=== PATIENT | male | born 1960 | race African-American/Black ===

== ENCOUNTER 2017-12-19 04:36 | Emergency (ER) | payer OTHER ==
[2017-12-19 04:44] VITALS: BMI 28.1
--- NOTE | 2017-12-19 05:18 | PDOC ---
Attending Attestation - Resident Resident Name: Mitchel Lazaro - ED Attending Attestation I have performed the following: I have examined & evaluated the patient, The case was reviewed & discussed with the resident, I agree w/resident's findings & plan - HPI HPI: 12/19/17 05:21 PT HASN'T TAKEN HIS BP MEDS IN A WEEK AND HASN'T TAKE DIABETES MEDS IN A MONTH. HE WOKE UP WITH HIS HRAT RACING ( THOUGH HE WERE RUNNING) pT IS AFEBRILE, a+oX3. nO DISTRESS. HE APPEARS WELL. sYSTOLIC IS 220/133 HE WAS GIVEN 2 slntg 12/19/17 05:32 PRIOR TO ems ARRIVING, HE TOOK ONE OF EACH OF HIS MEDSl VALSARTAN, METOPROLOL, HCTZ, GLIPIZIDE, ETC. - Physicial Exam PE: 12/19/17 05:33 AGREE WITH RESIDENT EXAM - Medical Decision Making 12/19/17 05:33 ADMIT THE PATIENT FOR UNCONTROLLED DM AND HTN TO TELE OBSERVATION
[2017-12-19] MEDS ORDERED: NITROGLYCERIN SUBLINGUAL 1/150 0.4 MG TAB SL ONE ×2 (05:21→06:03)
[2017-12-19] MEDS ORDERED: NITROGLYCERIN SUBLINGUAL 1/150 0.4 MG TAB ONE (05:25)
[2017-12-19] MEDS ORDERED: SODIUM CHLORIDE 0.45% 1,000 ML IV SCH (05:30)
[2017-12-19 05:54] LABS: EOS % 6.9 % (0-4.5); HEMOGLOBIN 12.1 GM/dL (11.7-16.9); LYMPH % 30.2 % (8-40); MCH 26.9 pg (25.7-33.7); MCHC 32.7 g/dl (32.0-35.9); MEAN CELL VOLUME 82.1 fl (80-96); MEAN PLT VOLUME 9.1 fl (7.5-11.1); MONO % 5.6 % (3.8-10.2); NEUT % 56.3 % (42.8-82.8); PLATELET COUNT 218 K/MM3 (134-434); RDW 15.1 % (11.9-15.9); WHITE BLOOD COUNT 4.9 K/mm3 (4.0-10.0)
--- NOTE | 2017-12-19 06:02 | PDOC ---
History of Present Illness - General Chief Complaint: Blood Pressure Problem Stated Complaint: ELELAVATED BLOOD SUGAR & BLOOD PRESSURE Time Seen by Provider: 12/19/17 05:17 History Source: Patient Exam Limitations: No Limitations - History of Present Illness Initial Comments: 12/19/17 05:57 57m with pmh of htn and dm2 presents to the Ed wafter waking up with palpitations from a dream. He proceeded to check his BP with was in the 230's, usually in the 140;s last check a week ago. Last checked his blood sugar a week ago. Currently symptom-free. Past History - Past Medical History Allergies/Adverse Reactions: Allergies Allergy/AdvReac Type Severity Reaction Status Date / Time No Known Allergies Allergy Verified 12/19/17 05:34 Home Medications: Ambulatory Orders Valsartan [Diovan] 320 mg PO DAILY 08/19/12 Glipizide [Glipizide ER] 10 mg PO DAILY 12/11/15 Metoprolol Tartrate [Lopressor -] 200 mg PO BID 12/11/15 Ibuprofen [Motrin -] 600 mg PO TID PRN #21 tablet 10/09/17 Amlodipine Besylate [Norvasc -] 10 mg PO DAILY 12/19/17 Cyclobenzaprine HCl [Flexeril -] 5 mg PO BID 12/19/17 Hydrochlorothiazide [Hctz -] 25 mg PO DAILY 12/19/17 COPD: No Diabetes: Yes HTN: Yes - Suicide/Smoking/Psychosocial Hx Smoking Status: No Smoking History: Never smoked Have you smoked in the past 12 months: No Number of Cigarettes Smoked Daily: 0 Information on smoking cessation initiated: No Hx Alcohol Use: No Drug/Substance Use Hx: No Substance Use Type: None Hx Substance Use Treatment: No Review of Systems - Review of Systems Able to Perform ROS?: Yes Is the patient limited Cymraes proficient: No Constitutional: No: Symptoms Reported HEENTM: No: Symptoms Reported Respiratory: No: Symptoms reported Cardiac (ROS): No: Symptoms Reported ABD/GI: No: Symptoms Reported : No: Symptoms Reported Musculoskeletal: No: Symptoms Reported Integumentary: No: Symptoms Reported Neurological: No: Symptoms reported All Other Systems: Reviewed and Negative *Physical Exam - Vital Signs Last Vital Signs Temp Pulse Resp BP Pulse Ox 97.6 F 88 20 239/124 100 12/19/17 04:41 12/19/17 04:41 12/19/17 04:41 12/19/17 04:41 12/19/17 04:41 - Physical Exam General Appearance: Yes: Nourished, Appropriately Dressed. No: Apparent Distress HEENT: positive: EOMI, LENARD, Normal ENT Inspection Neck: negative: Tender Respiratory/Chest: positive: Lungs Clear, Normal Breath Sounds. negative: Chest Tender, Respiratory Distress Cardiovascular: positive: Regular Rhythm, Regular Rate, S1, S2 Gastrointestinal/Abdominal: positive: Normal Bowel Sounds, Flat, Soft. negative : Tender Musculoskeletal: positive: Normal Inspection Extremity: positive: Normal Capillary Refill, Normal Inspection ED Treatment Course - LABORATORY CBC & Chemistry Diagram: 12/19/17 05:40 12/19/17 05:40 - ADDITIONAL ORDERS Additional order review: 12/19/17 05:40 RBC 4.50 MCV 82.1 MCHC 32.7 RDW 15.1 MPV 9.1 Neutrophils % 56.3 Lymphocytes % 30.2 Monocytes % 5.6 Eosinophils % 6.9 H Basophils % 1.0 - RADIOLOGY Radiology Studies Ordered: Category Date Time Status CHEST PA & LAT [RAD] Stat Radiology 12/19/17 05:18 Ordered - Medications Given in the ED: ED Medications Discontinued Medications Generic Name Dose Route Start Last Admin Trade Name Freq PRN Reason Stop Dose Admin Nitroglycerin 0.8 mg 12/19/17 05:21 12/19/17 05:35 Nitrostat - SL 12/19/17 05:22 0.8 mg ONCE ONE Administration Oxycodone/Acetaminophen 2 combo 12/19/17 05:26 12/19/17 05:39 Percocet 5/325 - PO 12/19/17 05:27 2 combo ONCE ONE Administration Medical Decision Making - Medical Decision Making 12/19/17 06:03 Nitroglycerin 0.8mg x 2 oxycodone, 1/2 ns due to right heart strain on ekg. 12/19/17 06:04 12/19/17 06:40 BP down to 199 now up to 212. Nitroglycerine drip started 12/19/17 07:05 Patient signed out to Dr. Edmondson *DC/Admit/Observation/Transfer Diagnosis at time of Disposition: Hypertension, Hypertensive emergency - Referrals Referrals: Ugo Kingston MD [Primary Care Provider] - - Patient Instructions - Post Discharge Activity
[2017-12-19 06:19] LABS: ALBUMIN 3.2 g/dl (3.4-5.0); ALK PHOS 68 U/L (45-117); ANION GAP 7 (8-16); BILIRUBIN,TOTAL 0.8 mg/dL (0.2-1.0); BLOOD UREA NITROGEN 23 mg/dL (7-18); CALCIUM 8.6 mg/dL (8.5-10.1); CHLORIDE 99 mmol/L (98-107); CO2 31 mmol/L (21-32); CREATININE 1.9 mg/dL (0.7-1.3); SGPT/ALT 26 U/L (12-78); SODIUM 137 mmol/L (136-145); TOT PROT 7.4 g/dl (6.4-8.2)
[2017-12-19 06:37] LABS: GLUCOSE,RANDOM 344 mg/dL (74-106); POTASSIUM 3.6 mmol/L (3.5-5.1); SGOT/AST 20 U/L (15-37)
[2017-12-19] MEDS ORDERED: NITROGLYCERIN 25MG/D5W 250ML 25 MG/250 ML ML IVPB SCH (06:45)
[2017-12-19] MEDS ORDERED: NITROGLYCERIN 25MG/D5W 250ML 25 MG/250 ML ML IVPB ONE (06:51)
--- NOTE | 2017-12-19 07:16 | PDOC ---
*Physical Exam - Vital Signs Last Vital Signs Temp Pulse Resp BP Pulse Ox 97.6 F 88 20 239/124 100 12/19/17 04:41 12/19/17 04:41 12/19/17 04:41 12/19/17 04:41 12/19/17 04:41 ED Treatment Course - LABORATORY CBC & Chemistry Diagram: 12/19/17 05:40 12/19/17 05:40 - ADDITIONAL ORDERS Additional order review: Laboratory Results 12/19/17 05:40 Sodium 137 Potassium 3.6 Chloride 99 Carbon Dioxide 31 Anion Gap 7 L BUN 23 H Creatinine 1.9 H D Creat Clearance w eGFR 36.59 Random Glucose 344 H* D Calcium 8.6 Total Bilirubin 0.8 AST 20 D ALT 26 D Alkaline Phosphatase 68 Total Protein 7.4 Albumin 3.2 L 12/19/17 05:40 RBC 4.50 MCV 82.1 MCHC 32.7 RDW 15.1 MPV 9.1 Neutrophils % 56.3 Lymphocytes % 30.2 Monocytes % 5.6 Eosinophils % 6.9 H Basophils % 1.0 - Medications Given in the ED: ED Medications Discontinued Medications Generic Name Dose Route Start Last Admin Trade Name Freq PRN Reason Stop Dose Admin Nitroglycerin 0.8 mg 12/19/17 05:21 12/19/17 05:35 Nitrostat - SL 12/19/17 05:22 0.8 mg ONCE ONE Administration Nitroglycerin 0.8 mg 12/19/17 06:03 12/19/17 06:05 Nitrostat - SL 12/19/17 06:04 0.8 mg ONCE ONE Administration Oxycodone/Acetaminophen 2 combo 12/19/17 05:26 12/19/17 05:39 Percocet 5/325 - PO 12/19/17 05:27 2 combo ONCE ONE Administration Medical Decision Making - Medical Decision Making 12/19/17 07:14 Pt was signed out to me by Dr. Lazaro, night team. The patient is a 57M with a PMH of HTN and DM who presented with increased BP. Pt is currently on a nitro drip pending labs. Will monitor to see if nitro drip controls BP. Dispo: likely tele admission for BP control. 12/19/17 09:46 CXR negative for acute pathology. Given 20 of labetalol to control BP. 12/19/17 11:16 Labs indicative of LAKSHMI w/ Cr at 1.9. Called Dr. Carmona (pt's PCP) with no answer. PCP has no service call. 12/19/17 11:26 Will d/c patient with strict instructions to follow up with PCP regarding Cr of 1.9. *DC/Admit/Observation/Transfer Diagnosis at time of Disposition: Hypertensive emergency Hypertension Qualifiers: Hypertension type: unspecified Qualified Code(s): I10 - Essential (primary) hypertension - Discharge Dispostion Disposition: HOME Condition at time of disposition: Stable Admit: No - Referrals Referrals: Ugo Kingston MD [Primary Care Provider] - - Patient Instructions Printed Discharge Instructions: DI for High Blood Pressure, How to Monitor Your Blood Pressure at Home Additional Instructions: Please follow up with Dr. Carmona for your elevated creatinine of 1.9 tomorrow, 12/20. Please return to the ER if symptoms persist, worsen, or new symptoms arise. Please follow up with your primary care physician in 2-3 days. Please return to the ER if you have any signs or symptoms of chest pain, shortness of breath, uncontrollable fever, chills, nausea, vomiting, numbness, tingling, or weakness in any part of your body, changes in vision, or slurred speech. Please take your blood pressure and diabetes medications as prescribed. - Post Discharge Activity
[2017-12-19 07:34] LABS: URINE APPEARANCE CLEAR; URINE BILIRUBIN NEGATIVE (NEGATIVE); URINE BLOOD NEGATIVE (NEGATIVE); URINE COLOR COLORLESS; URINE GLUCOSE (UA) 3+ (NEGATIVE); URINE KETONE NEGATIVE (NEGATIVE); URINE LEUK ESTERASE NEGATIVE (NEGATIVE); URINE NITRITE NEGATIVE (NEGATIVE); URINE UROBILINOGEN NEGATIVE mg/dL (0.2-1.0)
[2017-12-19] MEDS ORDERED: LABETALOL HCL 5 MG/1 ML (100MG/20 ML VIAL) IVPUSH ONE (08:03)
[2017-12-19] MEDS ORDERED: LABETALOL HCL 5 MG/1 ML (200MG/40ML VIAL) IVPB ONE (08:23)
[2017-12-19 08:29] LABS: URINE PROTEIN 2+ (NEGATIVE)
[2017-12-19 08:30] LABS: URINE BACTERIA RARE /hpf (NONE SEEN)
[2017-12-19 13:11] VITALS: BP 195/122; PULSE 65; TEMP 97.9
--- NOTE | 2017-12-19 16:05 | EKG ---
Test Reason : Blood Pressure : / mmHG Vent. Rate : 077 BPM Atrial Rate : 077 BPM P-R Int : 204 ms QRS Dur : 102 ms QT Int : 398 ms P-R-T Axes : 068 008 168 degrees QTc Int : 450 ms NORMAL SINUS RHYTHM POSSIBLE LEFT ATRIAL ENLARGEMENT SEPTAL INFARCT , AGE UNDETERMINED ABNORMAL ECG WHEN COMPARED WITH ECG OF 11-DEC-2015 11:56, NO SIGNIFICANT CHANGE WAS FOUND Confirmed by Allan Cisneros ([id number]) on 12/19/2017 4:05:14 PM Referred By: Confirmed By:Allan Cisneros
== END 2017-12-19 12:24 | disposition home or self-care (01) ==
LOC: JER 04:36
PROC: 3E0337Z Introduction of Electrolytic and Water Balance Substance into Peripheral Vein, Percutaneous Approach (ICD-10-PCS; principal; 2017-12-19)
PROC: 3E033GC Introduction of Other Therapeutic Substance into Peripheral Vein, Percutaneous Approach (ICD-10-PCS; 2017-12-19)
DX: I16.0 Hypertensive urgency (principal); E11.9 Type 2 diabetes mellitus without complications; Z79.84 Long term (current) use of oral hypoglycemic drugs; Z91.14 Patient's other noncompliance with medication regimen
CPT/HCPCS: 36415; 71046-TC; 80053; 81003; 81015; 82550; 82553; 84484; 85025; 93005; 93010; 96361; 96374; 99284-25

== ENCOUNTER 2018-05-08 05:08 | Inpatient (IN) | payer OTHER ==
--- NOTE | 2018-05-08 05:21 | PDOC ---
History of Present Illness - General History Source: Patient, Significant Other Exam Limitations: No Limitations - History of Present Illness Initial Comments: 05/08/18 06:24 Patient is a 57 year old male with a significant past medical history of HTN, Diabetes, who presents to the ED with complaints of altered mental status that began this morning while at home. As per patient's , she was awoken this morning at this am to the patient naked and wet while attempting to dial a phone onto his hand in an attempt to contact her while mumbling. She reports immediately calling EMS in order for the patient to be brought into the ED for further evaluation. Patient's reports patient has been chronically non compliant with medication. As per EMS patient's BGL was found to be 530 en route to the ED with a BP of 192/104 on scene. Denies chest pain, Sob. Denies nausea, vomiting. Denies head trauma, loss of consciousness. Denies fevers, chills. Denies contact with sick individuals, out of state travelling. Denies any other symptbh. Allergies: None Social history: Lives with . No smoking. No alcohol. No illicit drugs. Surgical history: None PMD: Dr. Kingston <Khang Thorpe - Last Filed: 05/08/18 06:23> <Valery Martínez - Last Filed: 05/08/18 06:58> - General Stated Complaint: AMS Time Seen by Provider: 05/08/18 05:13 Past History <Khang Thorpe - Last Filed: 05/08/18 06:23> - Past Medical History COPD: No Diabetes: Yes HTN: Yes - Suicide/Smoking/Psychosocial Hx Smoking Status: No Smoking History: Never smoked Have you smoked in the past 12 months: No Number of Cigarettes Smoked Daily: 0 Hx Alcohol Use: No Drug/Substance Use Hx: No Substance Use Type: None Hx Substance Use Treatment: No <Valery Martínez - Last Filed: 05/08/18 06:58> - Past Medical History Allergies/Adverse Reactions: Allergies Allergy/AdvReac Type Severity Reaction Status Date / Time No Known Allergies Allergy Verified 05/08/18 05:30 Home Medications: Ambulatory Orders Valsartan [Diovan] 320 mg PO DAILY 08/19/12 Glipizide [Glipizide ER] 10 mg PO DAILY 12/11/15 Metoprolol Tartrate [Lopressor -] 200 mg PO BID 12/11/15 Ibuprofen [Motrin -] 600 mg PO TID PRN #21 tablet 10/09/17 Amlodipine Besylate [Norvasc -] 10 mg PO DAILY 12/19/17 Cyclobenzaprine HCl [Flexeril -] 5 mg PO BID 12/19/17 Hydrochlorothiazide [Hctz -] 25 mg PO DAILY 12/19/17 Review of Systems - Review of Systems Able to Perform ROS?: Yes Comments:: 05/08/18 06:24 GENERAL/CONSTITUTIONAL: No fever or chills. No weakness. HEAD, EYES, EARS, NOSE AND THROAT: No change in vision. No ear pain or discharge. No sore throat. CARDIOVASCULAR: No chest pain or shortness of breath. RESPIRATORY: No cough, wheezing, or hemoptysis. GASTROINTESTINAL: No nausea, vomiting, diarrhea or constipation. GENITOURINARY: No dysuria, frequency, or change in urination. MUSCULOSKELETAL: No joint or muscle swelling or pain. No neck or back pain. SKIN: No rash NEUROLOGIC: No headache, vertigo, loss of consciousness, or change in strength/ sensation. ENDOCRINE: No increased thirst. No abnormal weight change. HEMATOLOGIC/LYMPHATIC: No anemia, easy bleeding, or history of blood clots. ALLERGIC/IMMUNOLOGIC: No hives or skin allergy. <Khang Thorpe - Last Filed: 05/08/18 06:23> *Physical Exam - Vital Signs Last Vital Signs Temp Pulse Resp BP Pulse Ox 98.9 F 103 H 16 223/114 96 05/08/18 05:10 05/08/18 05:10 05/08/18 05:10 05/08/18 05:10 05/08/18 05:10 - Physical Exam Comments: 05/08/18 06:24 GENERAL: Awake, alert, and fully oriented, in no acute distress HEAD: No signs of trauma EYES: PERRLA, EOMI, sclera anicteric, conjunctiva clear ENT: Auricles normal inspection, hearing grossly normal, nares patent, oropharynx clear without exudates. Moist mucosa NECK: Normal ROM, supple, no lymphadenopathy, JVD, or masses LUNGS: Breath sounds equal, clear to auscultation bilaterally. No wheezes, and no crackles HEART: +Tachycardic. Regular rhythm, normal S1 and S2, no murmurs, rubs or gallops ABDOMEN: Soft, nontender, normoactive bowel sounds. No guarding, no rebound. No masses EXTREMITIES: Normal range of motion, no edema. No clubbing or cyanosis. No cords, erythema, or tenderness NEUROLOGICAL: +Following commands. +AAOx1. Cranial nerves II through XII grossly intact. Normal speech, normal gait SKIN: Warm, Dry, normal turgor, no rashes or lesions noted. <Khang Thorpe - Last Filed: 05/08/18 06:23> Heart Score/ECG Review - ECG Intrepretation Comment:: 05/08/18 05:43 Completed @5:18:31 Sinus tachycardia with frequent premature ventricular complexes Septal infarct, age undetermined T wave abnormality, consider lateral ischemia Abnormal ECG Vent. rate 115 bpm [place] interval 170 ms QRS duration 86 ms <Khang Thorpe - Last Filed: 05/08/18 06:23> ED Treatment Course - LABORATORY CBC & Chemistry Diagram: 05/08/18 05:30 05/08/18 05:30 <Khang Thorpe - Last Filed: 05/08/18 06:23> - LABORATORY CBC & Chemistry Diagram: 05/08/18 05:30 05/08/18 05:30 <Valery Martínez - Last Filed: 05/08/18 06:58> Medical Decision Making - Medical Decision Making 05/08/18 05:55 Patient Name: DAVID RUIZ THIS IS A PRELIMINARY REPORT FROM [facility]AGING EVALUATOR [employer]SF[employer]UD[employer] DATE OF SERVICE: 2018-05-08 05:33:39 IMAGES: 142 EXAM: CT brain without contrast HISTORY: Rule out bleed COMPARISON: None. FINDINGS: Involutional changes somewhat out of proportion to young age. No hemorrhage. No mass. No visible infarct. Osseous structures are intact. Individualized dose optimization techniques were used for this CT. THIS DOCUMENT HAS BEEN ELECTRONICALLY SIGNED Radiologist sees atrophy disproportionate to his age. 05/08/18 06:13 Pt cannot contribute to his history; he doesn't know where we are, what city we are in, who the president is, what year this is, he only knows his name and he doesn't know his . called EMS, when he was mumbling at 3:30-4AM, pt had showered and he was undressed and wet and trying to call his on his hand, dialing an imaginary phone. was traveling just got home 5 days ago, she found wine at the home, states that he normally doesn't drink. Pt denied drinking however. 05/08/18 06:[address] Lyon is aware of the patient. Pt has elevated blood sugar, low K+ and acetone positive. He was given 10 U reg insulin, Kdur as well as K IV runs, and mag sulfate. Pt will requare admission. Hospitalist was called and they are asking to sign out to the day hospitalist team. CXR normal. EKG tachycardia and frequent PVCs. <Valery Martínez - Last Filed: 05/08/18 06:58> *DC/Admit/Observation/Transfer - Attestations Scribe Attestion: 05/08/18 06:24 Documentation prepared by Khang Thorpe, acting as certified medical technician assistant for Valery Martínez MD. <Khang Thorpe - Last Filed: 05/08/18 06:23> <Valery Martínez - Last Filed: 05/08/18 06:58> Diagnosis at time of Disposition: Altered mental status
[2018-05-08] MEDS ORDERED: NITROGLYCERIN 2% OINTMENT - 1GM PACKET TD ONE ×3 (05:27)
[2018-05-08] MEDS ORDERED: NITROGLYCERIN SUBLINGUAL 1/150 0.4 MG TAB SL ONE ×2 (05:27→06:01)
[2018-05-08 05:47] LABS: BASO % 0.6 % (0-2.0); EOS % 0.1 % (0-4.5); HEMOGLOBIN 13.3 GM/dL (11.7-16.9); LYMPH % 16.7 % (8-40); MCH 27.7 pg (25.7-33.7); MCHC 32.5 g/dl (32.0-35.9); MEAN CELL VOLUME 85.1 fl (80-96); NEUT % 81.6 % (42.8-82.8); PLATELET COUNT 259 K/MM3 (134-434); RBC 4.82 M/mm3 (4.00-5.60); RDW 14.2 % (11.9-15.9); WHITE BLOOD COUNT 9.3 K/mm3 (4.0-10.0)
[2018-05-08 06:08] LABS: INR 0.97 (0.82-1.09)
[2018-05-08 06:12] LABS: ALBUMIN 3.7 g/dl (3.4-5.0); ANION GAP 11 (8-16); BLOOD UREA NITROGEN 28 mg/dL (7-18); CALCIUM 9.7 mg/dL (8.5-10.1); CHLORIDE 95 mmol/L (98-107); CO2 29 mmol/L (21-32); POTASSIUM 3.1 mmol/L (3.5-5.1); SGOT/AST 22 U/L (15-37); SGPT/ALT 36 U/L (12-78); SODIUM 135 mmol/L (136-145)
[2018-05-08 06:14] LABS: ALK PHOS 68 U/L (45-117); BILIRUBIN,TOTAL 0.5 mg/dL (0.2-1.0); TOT PROT 8.6 g/dl (6.4-8.2)
[2018-05-08 06:21] LABS: GLUCOSE,RANDOM 543 mg/dL (74-106)
[2018-05-08] MEDS ORDERED: INSULIN REGULAR HUMAN 100 UNITS/ML *VIAL IVPUSH ONE ×2 (06:21→11:06)
[2018-05-08] MEDS ORDERED: VALSARTAN 160 MG TABLET (UD) PO ONE (06:22)
[2018-05-08] MEDS ORDERED: VALSARTAN 80 MG TABLET (UD) ONE (06:26)
[2018-05-08] MEDS ORDERED: INSULIN REGULAR HUMAN 100 UNITS/ML *VIAL ONE ×4 (06:27→14:24)
[2018-05-08] MEDS ORDERED: POTASSIUM CHLORIDE TABS 20 MEQ TABLET.ER (FP) PO ONE ×2 (06:46→06:52)
[2018-05-08] MEDS ORDERED: MAGNESIUM SULF 50% (8.12 MEQ/2 ML-1 GM VIAL) IVPB ONE (06:46)
[2018-05-08] MEDS ORDERED: KCL 10 MEQ IVPB 10 MEQ/100 ML INFUS.BAG IVPB ONE (07:00)
[2018-05-08] MEDS: KCL 10 MEQ IVPB 10 MEQ/100 ML INFUS.BAG IVPB SCH ×3 (07:05→09:35)
[2018-05-08] MEDS ORDERED: NICARDIPINE 25 MG in DEXTROSE 5%-WATER - 240 ML IVPB SCH (07:30)
[2018-05-08] MEDS ORDERED: KCL 10 MEQ IVPB 20 MEQ/200 ML INFUS.BAG IVPB ONE (07:31)
--- NOTE | 2018-05-08 07:37 | PDOC ---
*Physical Exam - Vital Signs Last Vital Signs Temp Pulse Resp BP Pulse Ox 98.9 F 108 H 16 180/110 96 05/08/18 05:10 05/08/18 07:18 05/08/18 07:18 05/08/18 07:18 05/08/18 07:18 05/08/18 07:39 Care endorsed to me and Dr. Loaiza by Dr. Martínez at the beginning of our shift. Pt is 57 YOM with h/o HTN and DM who is non-adherent to medications who p/w acute worsening of mental status. Found to be hypertensive, hyperglycemic, hypokalemic, with lactate 2.5 and LAKSHMI on labs. Head CT shows dilated ventricles but this was present on HCT from 2016. Patient continues to have AMS and plan is for admission to ICU. left before change of shift. ED Treatment Course - LABORATORY CBC & Chemistry Diagram: 05/08/18 05:30 05/08/18 08:00 - ADDITIONAL ORDERS Additional order review: Laboratory Results 05/08/18 05/08/18 05/08/18 06:16 05:53 05:30 PT with INR INR PTT (Actin FS) Sodium Potassium Chloride Carbon Dioxide Anion Gap BUN Creatinine Creat Clearance w eGFR Random Glucose Lactic Acid 2.5 H* Calcium Total Bilirubin AST ALT Alkaline Phosphatase Total Protein Albumin Alcohol, Quantitative < 5.0 Acetone, Qual Positive small 1+ 05/08/18 05/08/18 05/08/18 05:30 05:30 05:30 PT with INR 11.00 INR 0.97 PTT (Actin FS) 23.3 L Sodium 135 L Potassium 3.1 L Chloride 95 L Carbon Dioxide 29 Anion Gap 11 BUN 28 H D Creatinine 2.0 H Creat Clearance w eGFR 34.49 Random Glucose 543 H* D Lactic Acid Calcium 9.7 Total Bilirubin 0.5 D AST 22 ALT 36 D Alkaline Phosphatase 68 Total Protein 8.6 H Albumin 3.7 Alcohol, Quantitative Acetone, Qual 05/08/18 05:30 RBC 4.82 MCV 85.1 MCHC 32.5 RDW 14.2 MPV 10.0 Neutrophils % 81.6 D Lymphocytes % 16.7 D Monocytes % 1.0 L D Eosinophils % 0.1 D Basophils % 0.6 - Medications Given in the ED: ED Medications Discontinued Medications Generic Name Dose Route Start Last Admin Trade Name Freq PRN Reason Stop Dose Admin Insulin Human Regular 10 units 05/08/18 06:21 05/08/18 06:33 Novolin R Vial *For Ivpush Or Iv Drip Only* IVPUSH 05/08/18 06:22 10 unit ONCE ONE Administration Nitroglycerin 1 inch 05/08/18 05:27 05/08/18 05:45 Nitro-Bid 2% Paste - TD 05/08/18 05:28 1 inch ONCE ONE Administration Nitroglycerin 0.8 mg 05/08/18 05:27 05/08/18 05:45 Nitrostat - SL 05/08/18 05:28 0.8 mg ONCE ONE Administration Nitroglycerin 1 inch 05/08/18 05:27 05/08/18 06:04 Nitro-Bid 2% Paste - TD 05/08/18 05:28 Not Given ONCE ONE Nitroglycerin 0.8 mg 05/08/18 06:01 05/08/18 06:03 Nitrostat - SL 05/08/18 06:02 0.8 mg ONCE ONE Administration Potassium Chloride 40 meq 05/08/18 06:46 05/08/18 06:58 K-Dur - PO 05/08/18 06:47 40 meq ONCE ONE Administration Valsartan 160 mg 05/08/18 06:22 05/08/18 06:33 Diovan - PO 05/08/18 06:23 160 mg ONCE ONE Administration Medical Decision Making - Medical Decision Making Adult male Pt p/w acute worsening of mental status. Initial Vital Signs Temp Pulse Resp BP Pulse Ox 98.9 F 103 H 16 223/114 96 05/08/18 05:10 05/08/18 05:10 05/08/18 05:10 05/08/18 05:10 05/08/18 05:10 DDX IBNLT: VS abnormalities (e.g. fever, hypertensive emergency e.g. PRES), toxic-metabolic (e.g. medications, drugs e.g. serotonin syndrome/neuroleptic malignant syndrome or street drugs, electrolytes, hypothyroid, B12 deficiency), structural (e.g. epilepsy, brain tumor, CVA/TIA, NPH, CJD, ACS, PE, Simone disease), infectious (e.g. UTI, PNA, bronchitis, cellulitis, meningitis, neurosyphilis, HIV-associated dementia), psychiatric (e.g. delirium, dementia, psychosis), TTP (HUS with AMS, fever, poss seizure), etc. Additional W/U ordered: Mg, Salicylate level, Acetaminophen level, CSF studies, decadron, ceftriaxone, vancomycin, ampicillin, acyclovir, IVF Laboratory Tests 05/08/18 05/08/18 05/08/18 05:30 05:30 05:30 WBC 9.3 D RBC 4.82 Hgb 13.3 Hct 41.0 MCV 85.1 MCH 27.7 MCHC 32.5 RDW 14.2 Plt Count 259 MPV 10.0 Absolute Neuts (auto) 7.6 Neutrophils % 81.6 D Lymphocytes % 16.7 D Monocytes % 1.0 L D Eosinophils % 0.1 D Basophils % 0.6 Nucleated RBC % 0 PT with INR 11.00 INR 0.97 PTT (Actin FS) 23.3 L Anticoagulation Therapy ABG pH ABG pCO2 at Pt Temp ABG pO2 at Pt Temp ABG HCO3 ABG O2 Sat (Measured) ABG O2 Content ABG Base Excess Toni Test Carboxyhemoglobin Methemoglobin O2 Delivery Device Oxygen Flow Rate Vent Mode Vent Rate Mechanical Rate Pressure Support Vent Sodium Potassium Chloride Carbon Dioxide Anion Gap BUN Creatinine Creat Clearance w eGFR Random Glucose Lactic Acid Calcium Phosphorus Magnesium Total Bilirubin AST ALT Alkaline Phosphatase Ammonia Creatine Kinase Creatine Kinase Index CK-MB (CK-2) Troponin I B-Natriuretic Peptide Total Protein Albumin Urine Color Urine Appearance Urine pH Ur Specific [place] Urine Protein Urine Glucose (UA) Urine Ketones Urine Blood Urine Nitrite Urine Bilirubin Urine Urobilinogen Ur Leukocyte Esterase Urine WBC (Auto) Urine RBC (Auto) Ur Random Sodium Ur Random Potassium Ur Random Chloride Urine Creatinine CSF Glucose CSF Total Protein Salicylates Opiates Screen Methadone Screen Acetaminophen Barbiturate Screen Phencyclidine Screen Ur Amphetamines Screen MDMA (Ecstasy) Screen Benzodiazepines Screen Cocaine Screen U Marijuana (THC) Screen Alcohol, Quantitative Acetone, Qual 05/08/18 05/08/18 05/08/18 05:30 05:30 05:30 WBC RBC Hgb Hct MCV MCH MCHC RDW Plt Count MPV Absolute Neuts (auto) Neutrophils % Lymphocytes % Monocytes % Eosinophils % Basophils % Nucleated RBC % PT with INR INR PTT (Actin FS) Anticoagulation Therapy ABG pH ABG pCO2 at Pt Temp ABG pO2 at Pt Temp ABG HCO3 ABG O2 Sat (Measured) ABG O2 Content ABG Base Excess Toni Test Carboxyhemoglobin Methemoglobin O2 Delivery Device Oxygen Flow Rate Vent Mode Vent Rate Mechanical Rate Pressure Support Vent Sodium 135 L Potassium 3.1 L Chloride 95 L Carbon Dioxide 29 Anion Gap 11 BUN 28 H D Creatinine 2.0 H Creat Clearance w eGFR 34.49 Random Glucose 543 H* D Lactic Acid Calcium 9.7 Phosphorus Magnesium 2.1 Total Bilirubin 0.5 D AST 22 ALT 36 D Alkaline Phosphatase 68 Ammonia Creatine Kinase 501 H Creatine Kinase Index 1.1 CK-MB (CK-2) 5.537 H Troponin I < 0.02 D B-Natriuretic Peptide 860.81 H Total Protein 8.6 H Albumin 3.7 Urine Color Urine Appearance Urine pH Ur Specific [place] Urine Protein Urine Glucose (UA) Urine Ketones Urine Blood Urine Nitrite Urine Bilirubin Urine Urobilinogen Ur Leukocyte Esterase Urine WBC (Auto) Urine RBC (Auto) Ur Random Sodium Ur Random Potassium Ur Random Chloride Urine Creatinine CSF Glucose CSF Total Protein Salicylates < 1.700 Opiates Screen Methadone Screen Acetaminophen < amr Barbiturate Screen Phencyclidine Screen Ur Amphetamines Screen MDMA (Ecstasy) Screen Benzodiazepines Screen Cocaine Screen U Marijuana (THC) Screen Alcohol, Quantitative Acetone, Qual Positive small 1+ 05/08/18 05/08/18 05/08/18 05:53 06:16 08:00 WBC RBC Hgb Hct MCV MCH MCHC RDW Plt Count MPV Absolute Neuts (auto) Neutrophils % Lymphocytes % Monocytes % Eosinophils % Basophils % Nucleated RBC % PT with INR INR PTT (Actin FS) Anticoagulation Therapy ABG pH ABG pCO2 at Pt Temp ABG pO2 at Pt Temp ABG HCO3 ABG O2 Sat (Measured) ABG O2 Content ABG Base Excess Toni Test Carboxyhemoglobin Methemoglobin O2 Delivery Device Oxygen Flow Rate Vent Mode Vent Rate Mechanical Rate Pressure Support Vent Sodium 139 Potassium 3.4 L Chloride 98 Carbon Dioxide 29 Anion Gap 12 BUN 27 H Creatinine 2.0 H Creat Clearance w eGFR 34.49 Random Glucose 468 H* Lactic Acid 2.5 H* Calcium 9.8 Phosphorus 3.6 Magnesium 2.1 Total Bilirubin 0.6 AST 23 ALT 32 Alkaline Phosphatase 68 Ammonia Creatine Kinase Creatine Kinase Index CK-MB (CK-2) Troponin I 0.02 B-Natriuretic Peptide 1318.92 H Total Protein 8.5 H Albumin 3.7 Urine Color Urine Appearance Urine pH Ur Specific [place] Urine Protein Urine Glucose (UA) Urine Ketones Urine Blood Urine Nitrite Urine Bilirubin Urine Urobilinogen Ur Leukocyte Esterase Urine WBC (Auto) Urine RBC (Auto) Ur Random Sodium Ur Random Potassium Ur Random Chloride Urine Creatinine CSF Glucose CSF Total Protein Salicylates Opiates Screen Methadone Screen Acetaminophen Barbiturate Screen Phencyclidine Screen Ur Amphetamines Screen MDMA (Ecstasy) Screen Benzodiazepines Screen Cocaine Screen U Marijuana (THC) Screen Alcohol, Quantitative < 5.0 Acetone, Qual 05/08/18 05/08/18 05/08/18 08:00 08:00 08:20 WBC RBC Hgb Hct MCV MCH MCHC RDW Plt Count MPV Absolute Neuts (auto) Neutrophils % Lymphocytes % Monocytes % Eosinophils % Basophils % Nucleated RBC % PT with INR INR PTT (Actin FS) Anticoagulation Therapy ABG pH ABG pCO2 at Pt Temp ABG pO2 at Pt Temp ABG HCO3 ABG O2 Sat (Measured) ABG O2 Content ABG Base Excess Toni Test Carboxyhemoglobin Methemoglobin O2 Delivery Device Oxygen Flow Rate Vent Mode Vent Rate Mechanical Rate Pressure Support Vent Sodium Potassium Chloride Carbon Dioxide Anion Gap BUN Creatinine Creat Clearance w eGFR Random Glucose Lactic Acid 2.9 H* Calcium Phosphorus Magnesium Total Bilirubin AST ALT Alkaline Phosphatase Ammonia 23.51 Creatine Kinase Creatine Kinase Index CK-MB (CK-2) Troponin I B-Natriuretic Peptide Total Protein Albumin Urine Color Urine Appearance Urine pH Ur Specific [place] Urine Protein Urine Glucose (UA) Urine Ketones Urine Blood Urine Nitrite Urine Bilirubin Urine Urobilinogen Ur Leukocyte Esterase Urine WBC (Auto) Urine RBC (Auto) Ur Random Sodium Ur Random Potassium Ur Random Chloride Urine Creatinine CSF Glucose CSF Total Protein Salicylates Opiates Screen Negative Methadone Screen Negative Acetaminophen Barbiturate Screen Negative Phencyclidine Screen Negative Ur Amphetamines Screen Negative MDMA (Ecstasy) Screen Negative Benzodiazepines Screen Negative Cocaine Screen Negative U Marijuana (THC) Screen Negative Alcohol, Quantitative Acetone, Qual 05/08/18 05/08/18 05/08/18 08:20 08:21 08:41 WBC RBC Hgb Hct MCV MCH MCHC RDW Plt Count MPV Absolute Neuts (auto) Neutrophils % Lymphocytes % Monocytes % Eosinophils % Basophils % Nucleated RBC % PT with INR INR PTT (Actin FS) Anticoagulation Therapy ABG pH ABG pCO2 at Pt Temp ABG pO2 at Pt Temp ABG HCO3 ABG O2 Sat (Measured) ABG O2 Content ABG Base Excess Toni Test Carboxyhemoglobin Methemoglobin O2 Delivery Device Oxygen Flow Rate Vent Mode Vent Rate Mechanical Rate Pressure Support Vent Sodium Potassium Chloride Carbon Dioxide Anion Gap BUN Creatinine Creat Clearance w eGFR Random Glucose Lactic Acid Calcium Phosphorus Magnesium Total Bilirubin AST ALT Alkaline Phosphatase Ammonia Creatine Kinase Creatine Kinase Index CK-MB (CK-2) Troponin I B-Natriuretic Peptide Total Protein Albumin Urine Color Colorless Urine Appearance Clear Urine pH 7.0 Ur Specific [place] 1.018 Urine Protein 2+ H Urine Glucose (UA) 3+ H Urine Ketones Trace H Urine Blood Negative Urine Nitrite Negative Urine Bilirubin Negative Urine Urobilinogen Negative Ur Leukocyte Esterase Negative Urine WBC (Auto) 1 Urine RBC (Auto) None Ur Random Sodium 41 Ur Random Potassium 18.9 Ur Random Chloride 33 Urine Creatinine 30.2 CSF Glucose 302 H CSF Total Protein 163 H Salicylates Opiates Screen Methadone Screen Acetaminophen Barbiturate Screen Phencyclidine Screen Ur Amphetamines Screen MDMA (Ecstasy) Screen Benzodiazepines Screen Cocaine Screen U Marijuana (THC) Screen Alcohol, Quantitative Acetone, Qual 05/08/18 08:42 WBC RBC Hgb Hct MCV MCH MCHC RDW Plt Count MPV Absolute Neuts (auto) Neutrophils % Lymphocytes % Monocytes % Eosinophils % Basophils % Nucleated RBC % PT with INR INR PTT (Actin FS) Anticoagulation Therapy No Result Required. ABG pH 7.41 ABG pCO2 at Pt Temp 45.6 H ABG pO2 at Pt Temp 71.5 L ABG HCO3 28.2 H ABG O2 Sat (Measured) 94.8 ABG O2 Content 16.7 ABG Base Excess 3.4 H Toni Test Positive Carboxyhemoglobin 2.2 H Methemoglobin 1.6 H O2 Delivery Device No Result Required. Oxygen Flow Rate No Vent Mode No Result Required. Vent Rate No Result Required. Mechanical Rate No Result Required. Pressure Support Vent No Result Required. Sodium Potassium Chloride Carbon Dioxide Anion Gap BUN Creatinine Creat Clearance w eGFR Random Glucose Lactic Acid Calcium Phosphorus Magnesium Total Bilirubin AST ALT Alkaline Phosphatase Ammonia Creatine Kinase Creatine Kinase Index CK-MB (CK-2) Troponin I B-Natriuretic Peptide Total Protein Albumin Urine Color Urine Appearance Urine pH Ur Specific [place] Urine Protein Urine Glucose (UA) Urine Ketones Urine Blood Urine Nitrite Urine Bilirubin Urine Urobilinogen Ur Leukocyte Esterase Urine WBC (Auto) Urine RBC (Auto) Ur Random Sodium Ur Random Potassium Ur Random Chloride Urine Creatinine CSF Glucose CSF Total Protein Salicylates Opiates Screen Methadone Screen Acetaminophen Barbiturate Screen Phencyclidine Screen Ur Amphetamines Screen MDMA (Ecstasy) Screen Benzodiazepines Screen Cocaine Screen U Marijuana (THC) Screen Alcohol, Quantitative Acetone, Qual Vital Signs Temperature 98 F 05/08/18 13:08 Pulse Rate 108 H 05/08/18 13:08 Respiratory Rate 18 05/08/18 13:08 Blood Pressure 174/78 05/08/18 13:08 O2 Sat by Pulse Oximetry (%) 99 05/08/18 13:08 Patient to be admitted given acute change in mental status. They are unsafe for discharge at this time. They require further hospital observation, workup, and treatment. LP done in the ED and samples sent. *DC/Admit/Observation/Transfer Diagnosis at time of Disposition: Meningitis Altered mental status Qualifiers: Altered mental status type: unspecified Qualified Code(s): R41.82 - Altered mental status, unspecified - Discharge Dispostion Condition at time of disposition: Guarded Decision to Admit order: Yes - Referrals - Patient Instructions - Post Discharge Activity Procedure Note Procedure: Lumbar puncture performed at 9:00 am 05/08/18. Patient in left lateral decubitus position, chloraprep to lumbar back, sterile drape applied, second chloraprep, landmarks found and marked, local with 1% lidocaine without epi 4cc, spinal needle inserted L3-4 level, +CSF return clear, opening pressure 22.5, samples collected 4 tubes and sent to lab/micro, spinal needle removed and pressure applied x3 min, no subsequent bleeding or fluid leakage, bandage applied, patient placed flat on back by RN, patient tolerated the procedure well and did not require medication, abx started immediately after procedure completed.
[2018-05-08] MEDS ORDERED: THIAMINE HCL 200 MG/2 ML VIAL IVPB ONE (07:42)
[2018-05-08 07:58] LABS: MAGNESIUM 2.1 mg/dL (1.8-2.4)
[2018-05-08 08:08] LABS: ACETAMINOPHEN < AMR ug/mL; N-TERMINAL BNP 860.81 pg/ml (5-125); SALICYLATE < 1.700 mg/dL
[2018-05-08 08:31] LABS: URINE APPEARANCE CLEAR; URINE BILIRUBIN NEGATIVE (<2.0 mg/dL); URINE COLOR COLORLESS; URINE GLUCOSE (UA) 3+ (NEGATIVE); URINE KETONE TRACE (NEGATIVE); URINE LEUK ESTERASE NEGATIVE (NEGATIVE); URINE NITRITE NEGATIVE (NEGATIVE); URINE UROBILINOGEN NEGATIVE mg/dL (0.2-1.0)
[2018-05-08 08:32] LABS: URINE PROTEIN 2+ (NEGATIVE)
--- NOTE | 2018-05-08 08:40 | HP ---
CHIEF COMPLAINT: AMS PCP: HISTORY OF PRESENT ILLNESS: 57 y/o M w/PMH of DM and HTN (noncompliant with meds) presents to ER due to acute mental status change. According to at approximately 3 am pt had gotten up from bed and was calling wifes name and dialing a phone on his hand. He was last known well before going to bed. Works as an taxation accountant. He takes his meds on and off according to . Pt is currently altered and when asked about any history he responds with "not really". Pt does note having a headache but cannot give further hx on his headache. Further hx unable to be obtained due to pt's altered mental status. ER course was notable for: (1) Head CT, CXR (2) Insulin bolus, nitropaste, K-dur, Diovan 160 PO (3) Recent Travel: unable to be obtained due to AMS PAST MEDICAL HISTORY: DM, HTN PAST SURGICAL HISTORY: unable to be obtained due to AMS Social History: Smoking: unable to be obtained due to AMS - pt states "not really" Alcohol:unable to be obtained due to AMS - pt states "not really" and unable to further clarify Drugs: unable to be obtained due to AMS - pt states "not really" and unable to further clarify Family History:unable to be obtained due to AMS Allergies No Known Allergies Allergy (Verified 05/08/18 05:30) HOME MEDICATIONS: Home Medications Medication Instructions Recorded Valsartan [Diovan] 320 mg PO DAILY 08/19/12 Glipizide [Glipizide ER] 10 mg PO DAILY 12/11/15 Metoprolol Tartrate [Lopressor -] 200 mg PO BID 12/11/15 Ibuprofen [Motrin -] 600 mg PO TID PRN #21 tablet 10/09/17 Amlodipine Besylate [Norvasc -] 10 mg PO DAILY 12/19/17 Cyclobenzaprine HCl [Flexeril -] 5 mg PO BID 12/19/17 Hydrochlorothiazide [Hctz -] 25 mg PO DAILY 12/19/17 REVIEW OF SYSTEMS unable to be obtained due to AMS PHYSICAL EXAMINATION Vital Signs - 24 hr 05/08/18 05/08/18 05:10 07:18 Temperature 98.9 F Pulse Rate 103 H Pulse Rate [ 108 H Apical] Respiratory 16 16 Rate Blood Pressure 223/114 Blood Pressure 180/110 [Right Arm] O2 Sat by Pulse 96 96 Oximetry (%) GENERAL: Awake, alert, oriented to self only. HEAD: Normal with no signs of trauma. EYES: Pupils equal, round and reactive to light, extraocular movements intact. EARS, NOSE, THROAT: Ears normal, nares patent NECK: Normal range of motion LUNGS: Auscultated anteriorly - Breath sounds equal, clear to auscultation bilaterally. No wheezes, and no crackles HEART: Regular rate and rhythm, normal S1 and S2 without murmur, rub or gallop. ABDOMEN: Soft, nontender, not distended, normoactive bowel sounds LOWER EXTREMITIES: 2+ pulses, warm, well-perfused. No calf tenderness. No peripheral edema. NEUROLOGICAL: Altered mental status PSYCHIATRIC: Altered mental status SKIN: Warm, dry Laboratory Results - last 24 hr 05/08/18 05/08/18 05/08/18 05:30 05:30 05:30 WBC 9.3 D RBC 4.82 Hgb 13.3 Hct 41.0 MCV 85.1 MCH 27.7 MCHC 32.5 RDW 14.2 Plt Count 259 MPV 10.0 Absolute Neuts (auto) 7.6 Neutrophils % 81.6 D Lymphocytes % 16.7 D Monocytes % 1.0 L D Eosinophils % 0.1 D Basophils % 0.6 Nucleated RBC % 0 PT with INR 11.00 INR 0.97 PTT (Actin FS) 23.3 L Sodium Potassium Chloride Carbon Dioxide Anion Gap BUN Creatinine Creat Clearance w eGFR Random Glucose Lactic Acid Calcium Total Bilirubin AST ALT Alkaline Phosphatase Total Protein Albumin Alcohol, Quantitative Acetone, Qual 05/08/18 05/08/18 05/08/18 05:30 05:30 05:53 WBC RBC Hgb Hct MCV MCH MCHC RDW Plt Count MPV Absolute Neuts (auto) Neutrophils % Lymphocytes % Monocytes % Eosinophils % Basophils % Nucleated RBC % PT with INR INR PTT (Actin FS) Sodium 135 L Potassium 3.1 L Chloride 95 L Carbon Dioxide 29 Anion Gap 11 BUN 28 H D Creatinine 2.0 H Creat Clearance w eGFR 34.49 Random Glucose 543 H* D Lactic Acid 2.5 H* Calcium 9.7 Total Bilirubin 0.5 D AST 22 ALT 36 D Alkaline Phosphatase 68 Total Protein 8.6 H Albumin 3.7 Alcohol, Quantitative Acetone, Qual Positive small 1+ 05/08/18 06:16 WBC RBC Hgb Hct MCV MCH MCHC RDW Plt Count MPV Absolute Neuts (auto) Neutrophils % Lymphocytes % Monocytes % Eosinophils % Basophils % Nucleated RBC % PT with INR INR PTT (Actin FS) Sodium Potassium Chloride Carbon Dioxide Anion Gap BUN Creatinine Creat Clearance w eGFR Random Glucose Lactic Acid Calcium Total Bilirubin AST ALT Alkaline Phosphatase Total Protein Albumin Alcohol, Quantitative < 5.0 Acetone, Qual Imaging: CXR: pending official read - no acute pathology Head CT: Imaging conference planner read:Involutional changes somewhat out of proportion to young age. No hemorrhage. No mass. No visible infarct. Osseous structures are intact. EKG: Sinus tachycardia with frequent premature ventricular complexes Septal infarct, age undetermined T wave abnormality, consider lateral ischemia Abnormal ECG Vent. rate 115 bpm Active Medications Amlodipine Besylate (Norvasc -) 10 mg PO DAILY [facility] Chlorhexidine Gluconate (Hibiclens For Decolonization -) 1 applic TP HS [facility] Nicardipine HCl 25 mg/ (Dextrose) 250 mls @ 25 mls/hr IVPB TITR [facility]; Protocol Potassium Chloride 40 meq/ (Sodium Chloride) 1,020 mls @ 75 mls/hr IVPB Q13H [facility] Insulin Aspart (Novolog Vial Sliding Scale -) 1 vial SQ Q2H [facility]; Protocol Stop: 05/08/18 16:00 Last Admin: 05/08/18 09:30 Dose: 12 units Insulin Aspart (Novolog Vial Sliding Scale -) 1 vial SQ Q4HWA [facility]; Protocol Metoprolol Tartrate (Lopressor -) 200 mg PO BID [facility] Mupirocin (Bactroban Ointment (For Decolonization) -) 1 applic NS BID [facility] Stop: 05/13/18 21:59 ASSESSMENT/PLAN: 57 y/o M w/PMH of DM and HTN (noncompliant with meds) presents to ER due to acute mental status change. -Acute metabolic encephalopathy -Likely due to hypertensive encephalopathy secondary to non-compliance -will restart home meds - metoprolol 200 po bid, norvasc 10 mg po qd -Hyperglycemia - unlikely HHS or DKA. Serum osmolality 310. Small amounts (1+ ) of ketones in urine. pH 7.41 on ABG -Will get ABG, repeat Lactic acid, repeat CMP -f/u BCx, UCx, UA, Utox, A1C, ammonia level, CSF analysis -ID consulted -Head CT neg for acute changes -f/u MRI brain -r/o subarachnoid hemorrhage -HTNsive emergency -c/w nicardipine drip -Echo to r/o LV dysfunction -inital trop neg, f/u repeat trop -f/u MRI brain -uncontrolled DM -unlikely HHS or DKA. Serum osmolality 310. Small amounts (1+) of ketones in urine. pH 7.41 on ABG -Will get ABG, repeat Lactic acid, repeat CMP -ISS q2h for 8hr and then q4h afterwards -1/2 NS + 40 meq KCl @ 75 ml/hr -Elevated Lactic Acid -2.5 to 2.9, will follow -started on 1/2 NS @ 75 ml/hr -CKD vs LAKSHMI on CKD -unknown baseline -Nephrology consult -Urine lytes/Cr, Renal U/S -DVT ppx -Will put on SCDs until SAH is ruled out -FEN -1/2 NS + 40 meq KCl @ 75 ml/hr -K+ repleted and in fluids, continue to monitor. Corrected Na for hyperglycemia is 142 -Diabetic/Low sodium diet -Dispo: admit to ICU Visit type - Emergency Visit Emergency Visit: Yes ED Registration Date: 05/08/18 Care time: The patient presented to the Emergency Department on the above date and was hospitalized for further evaluation of their emergent condition. - New Patient This patient is new to me today: Yes Date on this admission: 05/08/18 - Critical Care Critical Care patient: Yes Total Critical Care Time (in minutes): 45 Critical Care Statement: The care of this patient involved high complexity decision making to prevent further life threatening deterioration of the patient 's condition and/or to evaluate & treat vital organ system(s) failure or risk of failure. Hospitalist Screening - Colonoscopy Questionnaire Colonoscopy Questionnaire: Colonoscopy Questionnaire - Patient: 50 - 75 years old and never had a screening colonoscopy: Unknown History of colon or rectal polyps, or CA: Unknown History of IBD, Crohn's disease or UC: Unknown History of abdominal radiation therapy as a child: Unknown - Relative: 1 with colon or rectal CA, or polyps at age 60 or younger: Unknown Colon or rectal CA diagnosed at age 45 or younger: Unknown Multiple relatives with colon or rectal CA: Unknown - Outcome: Screening Result: Negative Screen
[2018-05-08 08:43] LABS: ALBUMIN 3.7 g/dl (3.4-5.0); ANION GAP 12 (8-16); BLOOD UREA NITROGEN 27 mg/dL (7-18); CALCIUM 9.8 mg/dL (8.5-10.1); CHLORIDE 98 mmol/L (98-107); CO2 29 mmol/L (21-32); MAGNESIUM 2.1 mg/dL (1.8-2.4); PHOSPHOROUS 3.6 mg/dL (2.5-4.9); POTASSIUM 3.4 mmol/L (3.5-5.1); SGOT/AST 23 U/L (15-37); SGPT/ALT 32 U/L (12-78); SODIUM 139 mmol/L (136-145)
[2018-05-08 08:46] LABS: ARTERIAL BLD GAS O2 SATURATION 94.8 % (90-98.9); ARTERIAL BLOOD GAS BASE EXCESS 3.4 meq/l (-2-2); ARTERIAL BLOOD GAS PCO2 45.6 mmHg (35-45); ARTERIAL BLOOD GAS PO2 71.5 mmHg (80-100); ARTERIAL BLOOD GAS pH 7.41 (7.35-7.45); CARBOXYHEMOGLOBIN 2.2 gm% (0.5-2.0)
[2018-05-08 08:46] LABS: ALK PHOS 68 U/L (45-117); BILIRUBIN,TOTAL 0.6 mg/dL (0.2-1.0); N-TERMINAL BNP 1318.92 pg/ml (5-125); TOT PROT 8.5 g/dl (6.4-8.2)
--- NOTE | 2018-05-08 08:46 | PN ---
Teaching Attending Note Name of Resident: Delmar Zamora ATTENDING PHYSICIAN STATEMENT I saw and evaluated the patient. I reviewed the resident's note and discussed the case with the resident. I agree with the resident's findings and plan as documented. SUBJECTIVE: Patient is a 57yo male presented with acute change of mental status. As per patient was in his normal state of mind a day prior. Patient is not able to differentiate right hand from left, Disoriented x 3. c/o having mild headache. Blood pressure was found to have 223/114 in ED. OBJECTIVE: Vital Signs Temperature 99.4 F 05/08/18 08:41 Pulse Rate 83 05/08/18 08:41 Respiratory Rate 16 05/08/18 08:41 Blood Pressure 184/103 05/08/18 08:41 O2 Sat by Pulse Oximetry (%) 96 05/08/18 08:41 CBCD WBC 9.3 K/mm3 (4.0-10.0) D 05/08/18 05:30 RBC 4.82 M/mm3 (4.00-5.60) 05/08/18 05:30 Hgb 13.3 GM/dL (11.7-16.9) 05/08/18 05:30 Hct 41.0 % (35.4-49) 05/08/18 05:30 MCV 85.1 fl (80-96) 05/08/18 05:30 MCHC 32.5 g/dl (32.0-35.9) 05/08/18 05:30 RDW 14.2 % (11.9-15.9) 05/08/18 05:30 Plt Count 259 K/MM3 (134-434) 05/08/18 05:30 MPV 10.0 fl (7.5-11.1) 05/08/18 05:30 CMP Sodium 135 mmol/L (136-145) L 05/08/18 05:30 Potassium 3.1 mmol/L (3.5-5.1) L 05/08/18 05:30 Chloride 95 mmol/L (98-107) L 05/08/18 05:30 Carbon Dioxide 29 mmol/L (21-32) 05/08/18 05:30 Anion Gap 11 (8-16) 05/08/18 05:30 BUN 28 mg/dL (7-18) H D 05/08/18 05:30 Creatinine 2.0 mg/dL (0.7-1.3) H 05/08/18 05:30 Creat Clearance w eGFR 34.49 (>60) 05/08/18 05:30 Random Glucose 543 mg/dL (74-106) H* D 05/08/18 05:30 Calcium 9.7 mg/dL (8.5-10.1) 05/08/18 05:30 Total Bilirubin 0.5 mg/dL (0.2-1.0) D 05/08/18 05:30 AST 22 U/L (15-37) 05/08/18 05:30 ALT 36 U/L (12-78) D 05/08/18 05:30 Alkaline Phosphatase 68 U/L (45-117) 05/08/18 05:30 Total Protein 8.6 g/dl (6.4-8.2) H 05/08/18 05:30 Albumin 3.7 g/dl (3.4-5.0) 05/08/18 05:30 CARDIAC ENZYMES Creatine Kinase 501 IU/L (39-308) H 05/08/18 05:30 Troponin I < 0.02 ng/ml (0.00-0.05) D 05/08/18 05:30 Current Medications Generic Name Dose Route Start Last Admin Trade Name Freq PRN Reason Stop Dose Admin Potassium Chloride 10 meq in 100 mls @ 100 mls/hr 05/08/18 07:00 05/08/18 08: 19 Potassium Chloride 10 Meq Premix Ivpb - IVPB 05/08/18 09:59 100 mls/hr Q60M WYATT Administration Nicardipine HCl 25 mg/ 250 mls @ 25 mls/hr 05/08/18 07:30 Dextrose IVPB TITR WYATT Protocol 2.5 MG/HR Home Medications Medication Instructions Recorded Valsartan [Diovan] 320 mg PO DAILY 08/19/12 Glipizide [Glipizide ER] 10 mg PO DAILY 12/11/15 Metoprolol Tartrate [Lopressor -] 200 mg PO BID 12/11/15 Ibuprofen [Motrin -] 600 mg PO TID PRN #21 tablet 10/09/17 Amlodipine Besylate [Norvasc -] 10 mg PO DAILY 12/19/17 Cyclobenzaprine HCl [Flexeril -] 5 mg PO BID 12/19/17 Hydrochlorothiazide [Hctz -] 25 mg PO DAILY 12/19/17 PE: as per resident's note Neuro: disoriented x 3, with acute change of status Eyes: reactive BL, no meningeal sign, ASSESSMENT AND PLAN: Patient is a 57yo male presented with hypertensive emergency with blood pressure of 223/114, with change of mental status. # Acute change of mental status most likely due to hypertensive encephalopathy , will give him thiamine 250mg IV bid . will admit the patient ICU, will place him on Cardine drip , close monitoring in ICU. Neuro consult discussed with, also while in ED.Patient had an LP done for possible subarachnoid bleed, head CT was negative initially, also questionable meningitis as per ED. was rulled out since negative cells in the tap. with elevated protein and sugar level due to noncompliance to his bp and diabetic meds. # Hypertensive emergency on cardine drip titrate to SBP of 160-180 , neuro consult # Acute Hyperglycemia sliding scale with coverage with insulin, bs check every 2 hrs. # acute over chronic kidney failure , will get us f kidney and check lytes DVT Px: SCds for now, since patient has elevated BP. critical care time of 45 minutes.
[2018-05-08 08:48] LABS: ALLENS TEST POSITIVE
[2018-05-08] MEDS ORDERED: ACETAMINOPHEN INJECTION 100 ML IVPB ONE (08:50)
[2018-05-08 08:55] LABS: GLUCOSE,RANDOM 468 mg/dL (74-106)
[2018-05-08 08:55] LABS: COCAINE, UR NEGATIVE ng/ml (CUTOFF=300); METHADONE, UR NEGATIVE ng/ml (CUTOFF=300); OPIATES, URI NEGATIVE ng/ml (CUTOFF=300); PHENCYCLIDINE,URINE NEGATIVE ng/ml (CUTOFF=25); URINE AMPHETAMINES NEGATIVE ng/ml (CUTOFF=500); URINE BARBITURATES NEGATIVE ng/ml (CUTOFF=200); URINE BENZODIAZEPINES NEGATIVE ng/ml (CUTOFF=200)
[2018-05-08] MEDS ORDERED: CEFTRIAXONE 2 GM/100 ML BAG IVPB ONE (08:58)
[2018-05-08] MEDS ORDERED: SODIUM CHLORIDE 0.45% 1,000 ML IV SCH (09:00)
[2018-05-08] MEDS ORDERED: ACETAMINOPHEN 1000 MG/100 ML VIAL (NON FORMULARY) IVPB ONE (09:04)
[2018-05-08] MEDS ORDERED: CEFTRIAXONE 2,000 MG in DEXTROSE 5%-WATER - 50 ML IVPB ONE (09:04)
--- NOTE | 2018-05-08 09:16 | PDOC ---
*Physical Exam - Vital Signs Last Vital Signs Temp Pulse Resp BP Pulse Ox 100.4 F H 77 16 163/82 96 05/08/18 09:06 05/08/18 09:06 05/08/18 09:06 05/08/18 09:06 05/08/18 09:06 ED Treatment Course - LABORATORY CBC & Chemistry Diagram: 05/08/18 05:30 05/08/18 08:00 - ADDITIONAL ORDERS Additional order review: Laboratory Results 05/08/18 05/08/18 05/08/18 08:42 08:20 08:20 PT with INR INR PTT (Actin FS) Anticoagulation Therapy No Result Required. ABG pH 7.41 ABG pCO2 at Pt Temp 45.6 H ABG pO2 at Pt Temp 71.5 L ABG HCO3 28.2 H ABG O2 Sat (Measured) 94.8 ABG O2 Content 16.7 ABG Base Excess 3.4 H Toni Test Positive Carboxyhemoglobin 2.2 H Methemoglobin 1.6 H O2 Delivery Device No Result Required. Oxygen Flow Rate No Vent Mode No Result Required. Vent Rate No Result Required. Mechanical Rate No Result Required. Pressure Support Vent No Result Required. Sodium Potassium Chloride Carbon Dioxide Anion Gap BUN Creatinine Creat Clearance w eGFR Random Glucose Lactic Acid Calcium Phosphorus Magnesium Total Bilirubin AST ALT Alkaline Phosphatase Ammonia Creatine Kinase Troponin I B-Natriuretic Peptide Total Protein Albumin Urine Color Colorless Urine Appearance Clear Urine pH 7.0 Ur Specific [place] 1.018 Urine Protein 2+ H Urine Glucose (UA) 3+ H Urine Ketones Trace H Urine Blood Negative Urine Nitrite Negative Urine Bilirubin Negative Urine Urobilinogen Negative Ur Leukocyte Esterase Negative Urine WBC (Auto) 1 Urine RBC (Auto) None Salicylates Opiates Screen Negative Methadone Screen Negative Acetaminophen Barbiturate Screen Negative Phencyclidine Screen Negative Ur Amphetamines Screen Negative MDMA (Ecstasy) Screen Negative Benzodiazepines Screen Negative Cocaine Screen Negative U Marijuana (THC) Screen Negative Alcohol, Quantitative Acetone, Qual 05/08/18 05/08/18 05/08/18 08:00 08:00 08:00 PT with INR INR PTT (Actin FS) Anticoagulation Therapy ABG pH ABG pCO2 at Pt Temp ABG pO2 at Pt Temp ABG HCO3 ABG O2 Sat (Measured) ABG O2 Content ABG Base Excess Toni Test Carboxyhemoglobin Methemoglobin O2 Delivery Device Oxygen Flow Rate Vent Mode Vent Rate Mechanical Rate Pressure Support Vent Sodium 139 Potassium 3.4 L Chloride 98 Carbon Dioxide 29 Anion Gap 12 BUN 27 H Creatinine 2.0 H Creat Clearance w eGFR 34.49 Random Glucose 468 H* Lactic Acid 2.9 H* Calcium 9.8 Phosphorus 3.6 Magnesium 2.1 Total Bilirubin 0.6 AST 23 ALT 32 Alkaline Phosphatase 68 Ammonia 23.51 Creatine Kinase Troponin I 0.02 B-Natriuretic Peptide 1318.92 H Total Protein 8.5 H Albumin 3.7 Urine Color Urine Appearance Urine pH Ur Specific [place] Urine Protein Urine Glucose (UA) Urine Ketones Urine Blood Urine Nitrite Urine Bilirubin Urine Urobilinogen Ur Leukocyte Esterase Urine WBC (Auto) Urine RBC (Auto) Salicylates Opiates Screen Methadone Screen Acetaminophen Barbiturate Screen Phencyclidine Screen Ur Amphetamines Screen MDMA (Ecstasy) Screen Benzodiazepines Screen Cocaine Screen U Marijuana (THC) Screen Alcohol, Quantitative Acetone, Qual 05/08/18 05/08/18 05/08/18 06:16 05:53 05:30 PT with INR INR PTT (Actin FS) Anticoagulation Therapy ABG pH ABG pCO2 at Pt Temp ABG pO2 at Pt Temp ABG HCO3 ABG O2 Sat (Measured) ABG O2 Content ABG Base Excess Toni Test Carboxyhemoglobin Methemoglobin O2 Delivery Device Oxygen Flow Rate Vent Mode Vent Rate Mechanical Rate Pressure Support Vent Sodium Potassium Chloride Carbon Dioxide Anion Gap BUN Creatinine Creat Clearance w eGFR Random Glucose Lactic Acid 2.5 H* Calcium Phosphorus Magnesium 2.1 Total Bilirubin AST ALT Alkaline Phosphatase Ammonia Creatine Kinase 501 H Troponin I < 0.02 D B-Natriuretic Peptide 860.81 H Total Protein Albumin Urine Color Urine Appearance Urine pH Ur Specific [place] Urine Protein Urine Glucose (UA) Urine Ketones Urine Blood Urine Nitrite Urine Bilirubin Urine Urobilinogen Ur Leukocyte Esterase Urine WBC (Auto) Urine RBC (Auto) Salicylates < 1.700 Opiates Screen Methadone Screen Acetaminophen < amr Barbiturate Screen Phencyclidine Screen Ur Amphetamines Screen MDMA (Ecstasy) Screen Benzodiazepines Screen Cocaine Screen U Marijuana (THC) Screen Alcohol, Quantitative < 5.0 Acetone, Qual 05/08/18 05/08/18 05/08/18 05:30 05:30 05:30 PT with INR 11.00 INR 0.97 PTT (Actin FS) Anticoagulation Therapy ABG pH ABG pCO2 at Pt Temp ABG pO2 at Pt Temp ABG HCO3 ABG O2 Sat (Measured) ABG O2 Content ABG Base Excess Toni Test Carboxyhemoglobin Methemoglobin O2 Delivery Device Oxygen Flow Rate Vent Mode Vent Rate Mechanical Rate Pressure Support Vent Sodium 135 L Potassium 3.1 L Chloride 95 L Carbon Dioxide 29 Anion Gap 11 BUN 28 H D Creatinine 2.0 H Creat Clearance w eGFR 34.49 Random Glucose 543 H* D Lactic Acid Calcium 9.7 Phosphorus Magnesium Total Bilirubin 0.5 D AST 22 ALT 36 D Alkaline Phosphatase 68 Ammonia Creatine Kinase Troponin I B-Natriuretic Peptide Total Protein 8.6 H Albumin 3.7 Urine Color Urine Appearance Urine pH Ur Specific [place] Urine Protein Urine Glucose (UA) Urine Ketones Urine Blood Urine Nitrite Urine Bilirubin Urine Urobilinogen Ur Leukocyte Esterase Urine WBC (Auto) Urine RBC (Auto) Salicylates Opiates Screen Methadone Screen Acetaminophen Barbiturate Screen Phencyclidine Screen Ur Amphetamines Screen MDMA (Ecstasy) Screen Benzodiazepines Screen Cocaine Screen U Marijuana (THC) Screen Alcohol, Quantitative Acetone, Qual Positive small 1+ 05/08/18 05:30 PT with INR INR PTT (Actin FS) 23.3 L Anticoagulation Therapy ABG pH ABG pCO2 at Pt Temp ABG pO2 at Pt Temp ABG HCO3 ABG O2 Sat (Measured) ABG O2 Content ABG Base Excess Toni Test Carboxyhemoglobin Methemoglobin O2 Delivery Device Oxygen Flow Rate Vent Mode Vent Rate Mechanical Rate Pressure Support Vent Sodium Potassium Chloride Carbon Dioxide Anion Gap BUN Creatinine Creat Clearance w eGFR Random Glucose Lactic Acid Calcium Phosphorus Magnesium Total Bilirubin AST ALT Alkaline Phosphatase Ammonia Creatine Kinase Troponin I B-Natriuretic Peptide Total Protein Albumin Urine Color Urine Appearance Urine pH Ur Specific [place] Urine Protein Urine Glucose (UA) Urine Ketones Urine Blood Urine Nitrite Urine Bilirubin Urine Urobilinogen Ur Leukocyte Esterase Urine WBC (Auto) Urine RBC (Auto) Salicylates Opiates Screen Methadone Screen Acetaminophen Barbiturate Screen Phencyclidine Screen Ur Amphetamines Screen MDMA (Ecstasy) Screen Benzodiazepines Screen Cocaine Screen U Marijuana (THC) Screen Alcohol, Quantitative Acetone, Qual 05/08/18 05:30 RBC 4.82 MCV 85.1 MCHC 32.5 RDW 14.2 MPV 10.0 Neutrophils % 81.6 D Lymphocytes % 16.7 D Monocytes % 1.0 L D Eosinophils % 0.1 D Basophils % 0.6 - RADIOLOGY Radiology Studies Ordered: Category Date Time Status BRAIN MRI W/O CONTRAST [MRI] Stat MRI 05/08/18 07:45 Ordered - Medications Given in the ED: ED Medications Discontinued Medications Generic Name Dose Route Start Last Admin Trade Name Luna PRN Reason Stop Dose Admin Acetaminophen 1,000 mg 05/08/18 09:04 05/08/18 09:04 Ofirmev Injection - IVPB 05/08/18 09:05 1,000 mg NOW ONE Administration Sodium Chloride 1,000 mls @ 75 mls/hr 05/08/18 09:00 05/08/18 09:03 1/2 Normal Saline IV Not Given [facility] Insulin Human Regular 10 units 05/08/18 06:21 05/08/18 06:33 Novolin R Vial *For Ivpush Or Iv Drip Only* IVPUSH 05/08/18 06:22 10 unit ONCE ONE Administration Magnesium Sulfate 2 gm 05/08/18 06:46 05/08/18 09:03 Magnesium Sulfate IVPB 05/08/18 06:47 Not Given ONCE ONE Nitroglycerin 1 inch 05/08/18 05:27 05/08/18 05:45 Nitro-Bid 2% Paste - TD 05/08/18 05:28 1 inch ONCE ONE Administration Nitroglycerin 0.8 mg 05/08/18 05:27 05/08/18 05:45 Nitrostat - SL 05/08/18 05:28 0.8 mg ONCE ONE Administration Nitroglycerin 1 inch 05/08/18 05:27 05/08/18 06:04 Nitro-Bid 2% Paste - TD 05/08/18 05:28 Not Given ONCE ONE Nitroglycerin 0.8 mg 05/08/18 06:01 05/08/18 06:03 Nitrostat - SL 05/08/18 06:02 0.8 mg ONCE ONE Administration Potassium Chloride 40 meq 05/08/18 06:46 05/08/18 06:58 K-Dur - PO 05/08/18 06:47 40 meq ONCE ONE Administration Valsartan 160 mg 05/08/18 06:22 05/08/18 06:33 Diovan - PO 05/08/18 06:23 160 mg ONCE ONE Administration Medical Decision Making - Critical Care Time Total Critical Care Time (minutes): 90 Critical Care Statement: The care of this patient involved high complexity decision making to prevent further life threatening deterioration of the patient 's condition and/or to evaluate & treat vital organ system(s) failure or risk of failure. - Medical Decision Making 05/08/18 09:39 Care received at 0700 Briefly, pt presents to the ED with AMS since 3am. Pt was found to be hypertensive to 220/114 on arrival, was given home dose valsartan and 2inches nitro paste. Labs remarkable for no leukocytosis, hypokalemia 3.1, commutator tester 2.0 (was 1.9 in november), BUN 29, lactic 2.5. CTH with atrophy and ventricular dilation more than expected for age. CTH in 2016 appears fairly similar on my read. Pt was altered in ED overnight, confused and AO to name only. On my eval, BP was 210/110, a cardene gtt was ordered Pt very confused Spoke with pt's Kellie to clarify mental status change, she states that he was completely normal last night, but at 3am she heard him shouting her name, shaking and trying to dial numbers into his hand as if it was a phone She states he is highly functioning at baseline and works as an investment accountant At this point ddx was more likely hypertensive encephalopathy such as PRES vs meningitis On BP recheck, BP came down to 180/110 with no improvement in mental status Case discussed with admitting team Dr. Frost/Dr. Zamora re possibility of meningitis. They preferred to hold off on abx coverage as pt had no white count , was not meningitic with no white count Rpt rectal temp on pt was 99.7 At this point, we decided to do an LP as it appeared pt was mounting a temp Pt's gave telephone consent for LP LP was done by Dr. Sanabria under my direct supervision, OP was 22 (pt was in lat decubitus) Fluid clear, sent off for testing Rpt rectal temp 100.3, pt given dexamethasone, ceftraixone, vanc, ampicillin, and acyclovir for bacterial cvg including listeria as well as for HSV Case discussed with Dr. Morley, pt accepted to ICU Pt transported up by nurse to ICU *DC/Admit/Observation/Transfer Diagnosis at time of Disposition: Altered mental status - Discharge Dispostion Condition at time of disposition: Guarded Decision to Admit order: Yes - Referrals - Patient Instructions - Post Discharge Activity - Attestations Physician Attestion: 05/08/18 09:16 I, Dr. Mary Loaiza MD, attest that this document has been prepared under my direction and personally reviewed by me in its entirety. I further attest, that it accurately reflects all work, treatment, procedures and medical decision -making performed by me.
[2018-05-08] MEDS ORDERED: AMPICILLIN - 2 GM in SODIUM CHLORIDE 100 ML IVPB ONE (09:17)
[2018-05-08 09:20] LABS: URINE CREATININE 30.2 mg/dL (20-370)
[2018-05-08] MEDS ORDERED: DEXAMETHASONE SOD PHOSPHATE 10 MG/1 ML VIAL IVPUSH ONE (09:20)
[2018-05-08] MEDS ORDERED: VANCOMYCIN 1,250 MG in DEXTROSE 5%-WATER - 250 ML IVPB ONE (09:22)
[2018-05-08] MEDS ORDERED: VANCOMYCIN 1 GRAM (PRE-DOCKED) 1,000 MG/250 ML BAG IVPB ONE (09:28)
[2018-05-08] MEDS ORDERED: DEXAMETHASONE SOD PHOSPHATE 10 MG/1 ML VIAL ONE (09:28)
[2018-05-08] MEDS: INSULIN SLIDING SCALE (NOVOLOG) 1 VIAL SQ SCH ×6 (09:30→22:46)
[2018-05-08] MEDS ORDERED: ACYCLOVIR 500 MG (50MG/ML) VIAL IVPB ONE (09:36)
[2018-05-08] MEDS ORDERED: SODIUM CHLORIDE 0.9% 500 ML INFUS.BAG IV ONE (09:46)
[2018-05-08] MEDS ORDERED: HEPARIN NA (PORCINE) 5,000 UNITS/ML 1ML VIAL SQ SCH (10:00)
[2018-05-08 10:09] LABS: GLUCOSE,CSF 302 mg/dL (50-80)
--- NOTE | 2018-05-08 10:43 | CONSULT ---
Consult Consult Specialty:: PULM/CCM Referred by:: CARINA Reason for Consultation:: AMS - History of Present Illness Chief Complaint: AMS History of Present Illness: 57 M, DM and HTN (apparently non-compliant with meds). Admitted via the ER due to acute mental status change since 3 AM. According to he had got out of bed and started calling his 's name and dialing a phone on his hand. In the ER he was reported to be very agitated altered and confused and accelerated blood pressure. Apparently his BP improved with oral medications. Now seen in the ICU. Awake but confused. Intermittently following some simple commands. Not able to answer questions appropriately. Hi exam is essentially non-focal except for his mental status. CT head: no acute pathology CXR: no gross acute pathology CSF: Protein 163 / glucose 302 - History Source History Provided By: Medical Record Limitations to Obtaining History: Clinical Condition - Alcohol/Substance Use Hx Alcohol Use: No - Smoking History Smoking history: Never smoked Have you smoked in the past 12 months: No Aproximately how many cigarettes per day: 0 Home Medications - Allergies Allergies/Adverse Reactions: Allergies Allergy/AdvReac Type Severity Reaction Status Date / Time No Known Allergies Allergy Verified 05/08/18 05:30 - Home Medications Home Medications: Ambulatory Orders Valsartan [Diovan] 320 mg PO DAILY 08/19/12 Glipizide [Glipizide ER] 10 mg PO DAILY 12/11/15 Metoprolol Tartrate [Lopressor -] 200 mg PO BID 12/11/15 Ibuprofen [Motrin -] 600 mg PO TID PRN #21 tablet 10/09/17 Amlodipine Besylate [Norvasc -] 10 mg PO DAILY 12/19/17 Cyclobenzaprine HCl [Flexeril -] 5 mg PO BID 12/19/17 Hydrochlorothiazide [Hctz -] 25 mg PO DAILY 12/19/17 Review of Systems Unable to obtain ROS, reason: not able to provide Physical Exam Vital Signs: Vital Signs Temperature 100.4 F H 05/08/18 09:06 Pulse Rate 77 05/08/18 09:06 Respiratory Rate 16 05/08/18 09:06 Blood Pressure 163/82 05/08/18 09:06 O2 Sat by Pulse Oximetry (%) 96 05/08/18 09:06 Constitutional: Yes: No Distress Eyes: Yes: Conjunctiva Clear, EOM Intact, PERRL HENT: Yes: Atraumatic, Normocephalic Neck: Yes: Supple, Trachea Midline Cardiovascular: Yes: Regular Rate and Rhythm Respiratory: Yes: CTA Bilaterally. No: Accessory Muscle Use, Rales, Rhonchi, Stridor, Tachypnea, Wheezes Gastrointestinal: Yes: Normal Bowel Sounds, Soft Breast(s): Yes: WNL Musculoskeletal: Yes: WNL Extremities: Yes: WNL Edema: No Peripheral Pulses WNL: Yes Neurological: Yes: Confusion Labs: CBC, BMP 05/08/18 05:30 05/08/18 08:00 Imaging - Results Chest X-ray: Report Reviewed, Image Reviewed Cat Scan: Report Reviewed, Image Reviewed Problem List - Problems (1) Encephalopathy Code(s): G93.40 - ENCEPHALOPATHY, UNSPECIFIED (2) Altered mental status Code(s): R41.82 - ALTERED MENTAL STATUS, UNSPECIFIED (3) Hypertensive emergency Code(s): I16.1 - HYPERTENSIVE EMERGENCY (4) Renal insufficiency, mild Code(s): N28.9 - DISORDER OF KIDNEY AND URETER, UNSPECIFIED (5) Hyperglycemia Code(s): R73.9 - HYPERGLYCEMIA, UNSPECIFIED Assessment/Plan Follow CSF analysis Neuro evaluation Noted ID consult called as there was a suspicion of meningitis, no clear meningeal signs. Noted he was given empiric ABX in the ER. Need to confirm BP meds and restart if he is able to take PO, if not Cardene drip. If BP severely elevated and evidence of further organ damage: maximum of 25% reduction in first hour and to 160/100 over the next 2 to 6 hours depending on his clinical condition. Glycemic control with SQ insulin for now (Not in DKA/Hyperosmolar state) Strict I&O VTE prophylaxis Montiel-culture ICU monitoring Dr Morley Critical care time spent in reviewing chart, evaluating patient and formulating plan - 36 minutes.
[2018-05-08] MEDS ORDERED: POTASSIUM CHLORIDE 40 MEQ in SODIUM CHLORIDE 0.45% 1,000 ML IVPB SCH (11:00)
[2018-05-08] MEDS ORDERED: METOPROLOL TARTRATE 50 MG TABLET (FP) PO SCH (11:15)
[2018-05-08] MEDS ORDERED: SODIUM CHLORIDE IVPB ONE (11:30)
[2018-05-08] MEDS ORDERED: ACYCLOVIR IVPB ONE (11:30)
--- NOTE | 2018-05-08 11:47 | EKG ---
Test Reason : Blood Pressure : / mmHG Vent. Rate : 115 BPM Atrial Rate : 115 BPM P-R Int : 170 ms QRS Dur : 086 ms QT Int : 344 ms P-R-T Axes : 071 026 098 degrees QTc Int : 475 ms SINUS TACHYCARDIA WITH FREQUENT PREMATURE VENTRICULAR COMPLEXES SEPTAL INFARCT (CITED ON OR BEFORE 19-DEC-2017) T WAVE ABNORMALITY, CONSIDER LATERAL ISCHEMIA ABNORMAL ECG WHEN COMPARED WITH ECG OF 19-DEC-2017 05:23, PREMATURE VENTRICULAR COMPLEXES ARE NOW PRESENT VENT. RATE HAS INCREASED BY 38 BPM Confirmed by MD Finn, Sami ([id number]) on 05/08/2018 11:46:58 AM Referred By: Confirmed By:Sami Briseno MD
--- NOTE | 2018-05-08 11:47 | CON.NEURO ---
Consult - Alcohol/Substance Use Hx Alcohol Use: No - Smoking History Smoking history: Never smoked Have you smoked in the past 12 months: No Aproximately how many cigarettes per day: 0 Home Medications - Allergies Allergies/Adverse Reactions: Allergies Allergy/AdvReac Type Severity Reaction Status Date / Time No Known Allergies Allergy Verified 05/08/18 05:30 - Home Medications Home Medications: Ambulatory Orders Valsartan [Diovan] 320 mg PO DAILY 08/19/12 Glipizide [Glipizide ER] 10 mg PO DAILY 12/11/15 Metoprolol Tartrate [Lopressor -] 200 mg PO BID 12/11/15 Ibuprofen [Motrin -] 600 mg PO TID PRN #21 tablet 10/09/17 Amlodipine Besylate [Norvasc -] 10 mg PO DAILY 12/19/17 Cyclobenzaprine HCl [Flexeril -] 5 mg PO BID 12/19/17 Hydrochlorothiazide [Hctz -] 25 mg PO DAILY 12/19/17 Physical Exam-Neuro Vital Signs: Vital Signs Temperature 100.4 F H 05/08/18 09:06 Pulse Rate 77 05/08/18 09:06 Respiratory Rate 16 05/08/18 09:06 Blood Pressure 163/82 05/08/18 09:06 O2 Sat by Pulse Oximetry (%) 96 05/08/18 09:06 Labs: CBC, BMP 05/08/18 05:30 05/08/18 08:00 INR, PTT INR 0.97 (0.82-1.09) 05/08/18 05:30 Assessment/Plan CC sudden onset confusion HPI 57 year old male history fo DM, HTN ( Non compliant with Medication. He came to hospital for acute confusion. His BP was in 220s and Blood sugar wa s500s. There is no fever, or head trauma or drug use. Patient has ct head was unremarkable, and He is in icu and still agitated and confused. His spinal tap done and complete results are not back. His protein is slightly raised. He was given cefriaxone , steroid, acyclovir, vancomycin in ed. PAST MEDICAL HISTORY: DM, HTN SH,ROS,FH reviewed in chart NKDA HOME MEDICATIONS: Home Medications Medication Instructions Recorded Valsartan [Diovan] 320 mg PO DAILY 08/19/12 Glipizide [Glipizide ER] 10 mg PO DAILY 12/11/15 Metoprolol Tartrate [Lopressor -] 200 mg PO BID 12/11/15 Ibuprofen [Motrin -] 600 mg PO TID PRN #21 tablet 10/09/17 Amlodipine Besylate [Norvasc -] 10 mg PO DAILY 12/19/17 Cyclobenzaprine HCl [Flexeril -] 5 mg PO BID 12/19/17 Hydrochlorothiazide [Hctz -] 25 mg PO DAILY 12/19/17 Neurological Examination BP 223/114 on admission No neck stiffness Alert and confused, not able to follow command eomi, pupils reactive, no face asymmetry moving all extremity planter is bilateral withdrawal ct head unremarkable csf result reviewed csf protein is 163 , rest are pending Assesmsent - Acute confusional state , most likley due to Hypertensive encephalopathy and High sugar . Clinically less likely to be meningitis, slightly high protein could be due to diabetes. Waiting foR ID input and rest of csf results. Plan- ID consult , - Consider stopping Abx once csf results are back - BP and Hyperglycemia treatment - Follow csf results - may need MRI of brain once stable Thanking you so much Joby Lyon MD
[2018-05-08] MEDS ORDERED: INSULIN (NOVOLOG) ASPART 100 UNITS/ML 10ML VIAL ONE (12:12)
[2018-05-08 12:46] LABS: CSF APPEARANCE CLEAR; CSF COLOR COLORLESS
[2018-05-08 12:47] LABS: CSF WBC 0
[2018-05-08] MEDS: amLODIPine BESYLATE 10 MG TABLET (FP) PO SCH (12:59)
[2018-05-08 14:10] LABS: ANION GAP 12 (8-16); BLOOD UREA NITROGEN 25 mg/dL (7-18); CHLORIDE 103 mmol/L (98-107); CO2 25 mmol/L (21-32); CREATININE 2.1 mg/dL (0.7-1.3); GLUCOSE,RANDOM 239 mg/dL (74-106); POTASSIUM 3.2 mmol/L (3.5-5.1); SODIUM 140 mmol/L (136-145)
--- NOTE | 2018-05-08 15:04 | CONSULT ---
Consult Consult Specialty:: Nephrology Reason for Consultation:: CKD - History of Present Illness Chief Complaint: change in mental status History of Present Illness: Pt is a 57 year old male with pmhx of CKD, HTN, and DM who presents to the ER with altered mental status that began while he was sleeping. His woke up to find him confused and trying to make a phone call. She is at bedside and provided history. Pt does not remember what happened nor can he give me any information. He is not aware of person or place. He could not recognize who his is or where he is. He has history of DM and HTN and is not compliance with meds, per his . He denies chest pain or shortness of breath. He denies headache. They are not aware of history of CKD however he has had abnormal renal function for years per his old labs. Pt was also found to be hyperglycemic and in hypertensive urgency. - History Source History Provided By: Family Member, Medical Record - Past Medical History Cardio/Vascular: Yes: HTN Renal/: Yes: Renal Inusuff Endocrine: Yes: Diabetes Mellitus - Alcohol/Substance Use Hx Alcohol Use: No - Smoking History Smoking history: Never smoked Have you smoked in the past 12 months: No Aproximately how many cigarettes per day: 0 Home Medications - Allergies Allergies/Adverse Reactions: Allergies Allergy/AdvReac Type Severity Reaction Status Date / Time No Known Allergies Allergy Verified 05/08/18 05:30 - Home Medications Home Medications: Ambulatory Orders Valsartan [Diovan] 320 mg PO DAILY 08/19/12 Glipizide [Glipizide ER] 10 mg PO DAILY 12/11/15 Metoprolol Tartrate [Lopressor -] 200 mg PO BID 12/11/15 Ibuprofen [Motrin -] 600 mg PO TID PRN #21 tablet 10/09/17 Amlodipine Besylate [Norvasc -] 10 mg PO DAILY 12/19/17 Cyclobenzaprine HCl [Flexeril -] 5 mg PO BID 12/19/17 Hydrochlorothiazide [Hctz -] 25 mg PO DAILY 12/19/17 Family Disease History - Family Disease History Family History: Unable to Obtain Review of Systems Unable to obtain ROS, reason: pt is confused - Review of Systems Constitutional: denies: Chills, Fever Cardiovascular: reports: No Symptoms Respiratory: reports: No Symptoms Genitourinary: reports: No Symptoms Musculoskeletal: reports: No Symptoms Neurological: reports: Change in LOC, Confusion. denies: Dizziness Physical Exam Vital Signs: Vital Signs Temperature 98 F 05/08/18 13:08 Pulse Rate 108 H 05/08/18 13:08 Respiratory Rate 18 05/08/18 13:08 Blood Pressure 174/78 05/08/18 13:08 O2 Sat by Pulse Oximetry (%) 99 05/08/18 13:08 Constitutional: Yes: No Distress, Calm Eyes: Yes: Conjunctiva Clear HENT: Yes: Atraumatic Neck: Yes: Supple Cardiovascular: Yes: S1, S2 Respiratory: Yes: CTA Bilaterally Gastrointestinal: Yes: Normal Bowel Sounds, Soft Renal/: Yes: Jaramillo Present Musculoskeletal: Yes: WNL Edema: No Integumentary: Yes: WNL Neurological: Yes: Confusion Labs: CBC, BMP 05/08/18 05:30 05/08/18 13:25 Selected Entries 05/08/18 05/08/18 05/08/18 05:10 10:00 11:00 Blood Pressure 223/114 190/108 209/100 05/08/18 05/08/18 05/08/18 12:00 13:07 13:08 Blood Pressure 194/92 174/78 174/78 05/08/18 05/08/18 15:00 16:34 Blood Pressure 172/70 157/85 Laboratory Tests 02/28/11 08/19/12 12/11/15 21:20 20:20 11:40 WBC Hgb Sodium Potassium BUN Creatinine 1.4 H 1.5 H 1.5 H D Urine Protein Urine Glucose (UA) Urine Blood Acetone, Qual 12/19/17 05/08/18 05/08/18 05:40 05:30 05:30 WBC 9.3 D Hgb 13.3 Sodium Potassium BUN Creatinine 1.9 H D 2.0 H Urine Protein Urine Glucose (UA) Urine Blood Acetone, Qual 05/08/18 05/08/18 05/08/18 05:30 08:00 08:20 WBC Hgb Sodium Potassium BUN Creatinine 2.0 H Urine Protein 2+ H Urine Glucose (UA) 3+ H Urine Blood Negative Acetone, Qual Positive small 1+ 05/08/18 05/08/18 13:25 15:40 WBC Hgb Sodium 142 Potassium 3.6 BUN 24 H Creatinine 2.1 H 1.9 H Urine Protein Urine Glucose (UA) Urine Blood Acetone, Qual Imaging - Results Chest X-ray: Report Reviewed Cat Scan: Report Reviewed (ct head neg) Problem List - Problems (1) CKD (chronic kidney disease) Code(s): N18.9 - CHRONIC KIDNEY DISEASE, UNSPECIFIED (2) Altered mental status Code(s): R41.82 - ALTERED MENTAL STATUS, UNSPECIFIED Qualifiers: Altered mental status type: unspecified Qualified Code(s): R41.82 - Altered mental status, unspecified (3) Encephalopathy Code(s): G93.40 - ENCEPHALOPATHY, UNSPECIFIED (4) Hyperglycemia Code(s): R73.9 - HYPERGLYCEMIA, UNSPECIFIED (5) Hypertension Code(s): I10 - ESSENTIAL (PRIMARY) HYPERTENSION Qualifiers: Hypertension type: unspecified Qualified Code(s): I10 - Essential (primary ) hypertension (6) Hypertensive emergency Code(s): I16.1 - HYPERTENSIVE EMERGENCY Assessment/Plan Current Medications Generic Name Dose Route Start Last Admin Trade Name Freq PRN Reason Stop Dose Admin Amlodipine Besylate 10 mg 05/08/18 11:15 05/08/18 12:59 Norvasc - PO 10 mg DAILY [facility] Administration Chlorhexidine Gluconate 1 applic 05/08/18 22:00 Hibiclens For Decolonization - TP HS [facility] Potassium Chloride 40 meq/ 1,020 mls @ 75 mls/hr 05/08/18 11:00 05/08/18 12: 58 Sodium Chloride IVPB 75 mls/hr Q13H [facility] Administration Insulin Aspart 1 vial 05/08/18 16:00 05/08/18 16:34 Novolog Vial Sliding Scale - SQ [facility] Metoprolol Tartrate 200 mg 05/08/18 11:15 05/08/18 14:25 Lopressor - PO 200 mg BID [facility] Administration Mupirocin 1 applic 05/08/18 22:00 Bactroban Ointment (For Decolonization) - NS 05/13/18 21:59 BID [facility] Laboratory Tests 12/19/17 05/08/18 05/08/18 05:40 05:53 08:00 Creatinine 1.9 H D Lactic Acid 2.5 H* 2.9 H* 05/08/18 05/08/18 05/08/18 13:25 15:40 15:40 Creatinine 1.9 H Lactic Acid 6.5 H* 3.1 H* Laboratory Tests 05/08/18 13:25 Hemoglobin A1c % 13.0 H Impression 1. CKD 2. proteinuria 3. DM - uncontrolled 4. HTN with urgency 5. change in mental status 6. hx of non compliance 7. hyperglycemia 8. lactic acidosis 9. hypokalemia Plan - lactic acidosis is improving - cont with fluids and monitor lytes - bp is improving - pt was on an arb, can resume as his renal function is at baseline - monitor blood pressure for a gradual decrease - check echo - consider a cario consult - check anca and lakes[place] - check prt to corn picker ratio - keep in ICU - follow csf studies - neuro and ID follow up - mental status has not improved - will need better glucose control - ac is 13 - will follow Dr Zamora
[2018-05-08 16:44] LABS: ANION GAP 12 (8-16); BLOOD UREA NITROGEN 24 mg/dL (7-18); CALCIUM 9.5 mg/dL (8.5-10.1); CHLORIDE 105 mmol/L (98-107); CO2 25 mmol/L (21-32); CREATININE 1.9 mg/dL (0.7-1.3); GLUCOSE,RANDOM 131 mg/dL (74-106); POTASSIUM 3.6 mmol/L (3.5-5.1); SODIUM 142 mmol/L (136-145)
[2018-05-08] MEDS ORDERED: hydrALAZINE HCL 20 MG/ML VIAL IVPUSH ONE (22:21)
[2018-05-08] MEDS: MUPIROCIN 2% TOPICAL OINTMENT FOR DECOLONIZATION NS SCH (22:26)
[2018-05-08] MEDS: CHLORHEXIDINE GLUCONATE 4% CLEANSER FOR DECOLONIZATION TP SCH (22:26)
[2018-05-08] MEDS ORDERED: HEMOQUE TEST 1 EACH EACH ONE (22:31)
[2018-05-09] MEDS ORDERED: ACETAMINOPHEN 325 MG TABLET (FP) ONE (00:35)
[2018-05-09] MEDS: NICARDIPINE 25 MG in DEXTROSE 5%-WATER - 240 ML IVPB SCH (00:37)
[2018-05-09] MEDS ORDERED: ACETAMINOPHEN 500 MG TABLET (FP) PO ONE (00:38)
[2018-05-09] MEDS: INSULIN SLIDING SCALE (NOVOLOG) 1 VIAL SQ SCH ×5 (06:37→22:02)
[2018-05-09 06:48] LABS: BASO % 0.3 % (0-2.0); HEMATOCRIT 37.9 % (35.4-49); HEMOGLOBIN 12.7 GM/dL (11.7-16.9); LYMPH % 14.7 % (8-40); MCH 27.9 pg (25.7-33.7); MCHC 33.5 g/dl (32.0-35.9); MEAN CELL VOLUME 83.3 fl (80-96); MEAN PLT VOLUME 9.5 fl (7.5-11.1); MONO % 4.3 % (3.8-10.2); NEUT % 80.7 % (42.8-82.8); PLATELET COUNT 238 K/MM3 (134-434); RBC 4.54 M/mm3 (4.00-5.60); RDW 13.7 % (11.9-15.9); WHITE BLOOD COUNT 17.3 K/mm3 (4.0-10.0)
--- NOTE | 2018-05-09 07:00 | PN ---
Progress Note (short form) - Note Progress Note: Pt noted to have SBPs in 190s, but also noted to be in first degree heart block at a rate of 60-80s NE interval 0.26. Metropolol held. Given Hydralazine 10mg IV x1 given. However, BP did not improve much and pt started to experience frontal headache. Assessed at bedside and neuro exam is unchanged from prior, PERRL @3mm brisk. Decision was made to start Cardene drip for tighter BP management. BPs now improved. Headache subsided. Will continue to monitor. Nicole Stephens, OCHOAP- Pulm Critical care
[2018-05-09 07:08] LABS: ALBUMIN 3.2 g/dl (3.4-5.0); BLOOD UREA NITROGEN 26 mg/dL (7-18); CO2 26 mmol/L (21-32); CREATININE 1.8 mg/dL (0.7-1.3); MAGNESIUM 1.7 mg/dL (1.8-2.4); PHOSPHOROUS 2.7 mg/dL (2.5-4.9); SGOT/AST 20 U/L (15-37); SGPT/ALT 27 U/L (12-78)
[2018-05-09 07:38] LABS: ALK PHOS 56 U/L (45-117); BILIRUBIN,TOTAL 0.7 mg/dL (0.2-1.0); CALCIUM 9.3 mg/dL (8.5-10.1); TOT PROT 7.5 g/dl (6.4-8.2)
[2018-05-09 08:48] LABS: GLUCOSE,RANDOM 307 mg/dL (74-106)
[2018-05-09 09:12] LABS: ANION GAP 9 (8-16); CHLORIDE 102 mmol/L (98-107); POTASSIUM 3.2 mmol/L (3.5-5.1); SODIUM 137 mmol/L (136-145)
[2018-05-09] MEDS: amLODIPine BESYLATE 10 MG TABLET (FP) PO SCH (09:49)
[2018-05-09] MEDS: MUPIROCIN 2% TOPICAL OINTMENT FOR DECOLONIZATION NS SCH ×2 (09:50→22:03)
--- NOTE | 2018-05-09 10:10 | PN ---
Progress Note (short form) - Note Progress Note: 57 year old male history fo DM, HTN ( Non compliant with Medication. He came to hospital for acute confusion. His BP was in 220s and Blood sugar wa s500s. There is no fever, or head trauma or drug use. Patient has ct head was unremarkable, and He is in icu and still agitated and confused. His spinal tap done and complete results are not back. His protein is slightly raised. He was given cefriaxone , steroid, acyclovir, vancomycin in ed. His Abx has been stopped. Patient has improved markedly since yesterday. Neurological Examination BP 223/114 on admission No neck stiffness Alert and oriented x 2 eomi, pupils reactive, no face asymmetry moving all extremity planter is bilateral withdrawal ct head unremarkable csf was benign Assesmsent - Acute confusional state , most likley due to Hypertensive encephalopathy and High sugar . Clinically less likely to be meningitis, slightly high protein could be due to diabetes. He has improved markedly. Plan- DM AND HTN treatment - May obtain mri of brain - Feel free to call me if any question. - Thanking you so much Joby Lyon MD
--- NOTE | 2018-05-09 11:31 | PN ---
Teaching Attending Note Name of Resident: Nikita Montes ATTENDING PHYSICIAN STATEMENT I saw and evaluated the patient. I reviewed the resident's note and discussed the case with the resident. I agree with the resident's findings and plan as documented. SUBJECTIVE: Pt seen and examined in the ICU. Still episodes of confusion but mental status improving. Remains on cardene gtt. OBJECTIVE: Vital Signs Period Temp Pulse Resp BP Sys/Dasilva Pulse Ox Last 24 Hr 98 F-99.7 F 70-115 16-19 144-194/68-115 99-99 Intake & Output 05/06/18 05/07/18 05/08/18 05/09/18 23:59 23:59 23:59 23:59 Intake Total 2480 625 Output Total 2800 2100 Balance -320 -1475 Weight 90.5 kg Gen: NAD at rest Heart: RRR Lung: decreased breath sounds at the bases Abd: soft, nontender Ext: no edema CBC, BMP 05/09/18 05:30 05/09/18 05:30 Active Medications Amlodipine Besylate (Norvasc -) 10 mg PO DAILY [facility] Last Admin: 05/09/18 09:49 Dose: 10 mg Chlorhexidine Gluconate (Hibiclens For Decolonization -) 1 applic TP HS [facility] Last Admin: 05/08/18 22:26 Dose: 1 applic Cyclobenzaprine HCl (Flexeril -) 5 mg PO BID [facility] Hydrochlorothiazide (Hctz -) 25 mg PO DAILY [facility] Nicardipine HCl 25 mg/ (Dextrose) 250 mls @ 25 mls/hr IVPB TITR [facility]; Protocol Last Titration: 05/09/18 01:17 Dose: 5 mg/hr, 50 mls/hr Insulin Aspart (Novolog Vial Sliding Scale -) 1 vial SQ Q4HWA [facility]; Protocol Last Admin: 05/09/18 10:01 Dose: 10 units Mupirocin (Bactroban Ointment (For Decolonization) -) 1 applic NS BID [facility] Stop: 05/13/18 21:59 Last Admin: 05/09/18 09:50 Dose: 1 applic Potassium Chloride (K-Dur -) 40 meq PO BID [facility] Valsartan (Diovan -) 320 mg PO DAILY [facility] ASSESSMENT AND PLAN: Altered Mental Status Hypertensive Urgency r/o PRES HTN DM CKD Lactic Acidosis - resume home BP meds - titrate off cardene gtt - consider MRI brain - PO as tolerated - replete lytes - f/u CSF studies - DVT prophylaxis - continue ICU monitoring critical care time spent in reviewing chart, evaluating patient and formulating plan 35 min
[2018-05-09] MEDS ORDERED: INSULIN (NOVOLOG) ASPART 100 UNITS/ML 10ML VIAL ONE (12:09)
[2018-05-09] MEDS: POTASSIUM CHLORIDE TABS 20 MEQ TABLET.ER (FP) PO SCH ×2 (12:31→22:02)
--- NOTE | 2018-05-09 12:42 | PN ---
Physical Exam: SUBJECTIVE: Pt much more alert today and responding to commands. Pt denies any recollection of events yesterday, however notes that he was at home and start feeling "weird." Pt reports being noncompliant with medications and taking them sporadically at home. Denies any headaches or vision difficulties currently. OBJECTIVE: Vital Signs Period Temp Pulse Resp BP Sys/Dasilva Pulse Ox Last 24 Hr 98 F-99.7 F 70-115 16-19 144-186/68-115 99-99 GENERAL: NAD, laying in bed, alert, oriented to person and place with clouding of date (knows it's a Wednesday, thinks it's April, no idea about year) HEENT: NC/AT, EOMI, STEFANY, no optic disc bulging, MMM NECK: No JVD, no neck stiffness LUNGS: CTA bilaterally, no wheezes, no crackles, no accessory muscle use. HEART: Tachycardic with regular rhythm, S1, S2 with 2/6 systolic murmur at LLSB and 2/6 diastolic RUSB murmur ABDOMEN: Soft, nontender, nondistended, normoactive bowel sounds, no guarding, no hepatomegaly, no masses. EXTREMITIES: 2+ DP pulses, warm, well-perfused, no edema. NEUROLOGICAL: waiter/waitress tavern II through XII grossly intact. Normal speech, strength 5/5 in upper and lower extremities, sensation intact throughout. PSYCH: Normal mood, normal affect. SKIN: Warm, dry, no rashes or lesions noted Laboratory Results - last 24 hr 05/08/18 05/08/18 05/08/18 09:30 10:48 12:10 WBC RBC Hgb Hct MCV MCH MCHC RDW Plt Count MPV Absolute Neuts (auto) Neutrophils % Lymphocytes % Monocytes % Eosinophils % Basophils % Nucleated RBC % Sodium Potassium Chloride Carbon Dioxide Anion Gap BUN Creatinine Creat Clearance w eGFR POC Glucometer > 400 > 400 Random Glucose Hemoglobin A1c % Lactic Acid Calcium Phosphorus Magnesium Total Bilirubin AST ALT Alkaline Phosphatase Creatine Kinase Creatine Kinase Index CK-MB (CK-2) Troponin I Total Protein Albumin CSF Appearance Clear CSF Color Colorless CSF WBC 0 CSF RBC 0 CSF Neutrophils No Result Required. CSF Lymphocytes No Result Required. CSF Eosinophils No Result Required. CSF Basophils No Result Required. CSF Macrophages No Result Required. CSF Plasma Cells No Result Required. CSF Diff Comment No Result Required. CSF Comment No Result Required. CSF Glucose No Result Required. CSF Total Protein No Result Required. 05/08/18 05/08/18 05/08/18 13:25 13:25 13:25 WBC RBC Hgb Hct MCV MCH MCHC RDW Plt Count MPV Absolute Neuts (auto) Neutrophils % Lymphocytes % Monocytes % Eosinophils % Basophils % Nucleated RBC % Sodium Potassium Chloride Carbon Dioxide Anion Gap BUN Creatinine Creat Clearance w eGFR POC Glucometer Random Glucose Hemoglobin A1c % 13.0 H Lactic Acid 6.5 H* Calcium Phosphorus Magnesium Total Bilirubin AST ALT Alkaline Phosphatase Creatine Kinase Cancelled Creatine Kinase Index CK-MB (CK-2) Troponin I Cancelled Total Protein Albumin CSF Appearance CSF Color CSF WBC CSF RBC CSF Neutrophils CSF Lymphocytes CSF Eosinophils CSF Basophils CSF Macrophages CSF Plasma Cells CSF Diff Comment CSF Comment CSF Glucose CSF Total Protein 05/08/18 05/08/18 05/08/18 13:25 14:21 15:40 WBC RBC Hgb Hct MCV MCH MCHC RDW Plt Count MPV Absolute Neuts (auto) Neutrophils % Lymphocytes % Monocytes % Eosinophils % Basophils % Nucleated RBC % Sodium 140 142 Potassium 3.2 L 3.6 Chloride 103 105 Carbon Dioxide 25 25 Anion Gap 12 12 BUN 25 H 24 H Creatinine 2.1 H 1.9 H Creat Clearance w eGFR POC Glucometer 180.23056 Random Glucose 239 H D 131 H D Hemoglobin A1c % Lactic Acid Calcium 10.0 9.5 Phosphorus Magnesium Total Bilirubin AST ALT Alkaline Phosphatase Creatine Kinase 413 H Creatine Kinase Index 0.8 CK-MB (CK-2) 3.69 H Troponin I 0.04 D Total Protein Albumin CSF Appearance CSF Color CSF WBC CSF RBC CSF Neutrophils CSF Lymphocytes CSF Eosinophils CSF Basophils CSF Macrophages CSF Plasma Cells CSF Diff Comment CSF Comment CSF Glucose CSF Total Protein 05/08/18 05/08/18 05/08/18 15:40 16:31 18:12 WBC RBC Hgb Hct MCV MCH MCHC RDW Plt Count MPV Absolute Neuts (auto) Neutrophils % Lymphocytes % Monocytes % Eosinophils % Basophils % Nucleated RBC % Sodium Potassium Chloride Carbon Dioxide Anion Gap BUN Creatinine Creat Clearance w eGFR POC Glucometer 139.57106 169.51746 Random Glucose Hemoglobin A1c % Lactic Acid 3.1 H* Calcium Phosphorus Magnesium Total Bilirubin AST ALT Alkaline Phosphatase Creatine Kinase Creatine Kinase Index CK-MB (CK-2) Troponin I Total Protein Albumin CSF Appearance CSF Color CSF WBC CSF RBC CSF Neutrophils CSF Lymphocytes CSF Eosinophils CSF Basophils CSF Macrophages CSF Plasma Cells CSF Diff Comment CSF Comment CSF Glucose CSF Total Protein 05/08/18 05/08/18 05/09/18 19:03 19:03 05:30 WBC 17.3 H D RBC 4.54 Hgb 12.7 Hct 37.9 MCV 83.3 MCH 27.9 MCHC 33.5 RDW 13.7 Plt Count 238 MPV 9.5 Absolute Neuts (auto) 13.9 Neutrophils % 80.7 Lymphocytes % 14.7 Monocytes % 4.3 D Eosinophils % 0.0 D Basophils % 0.3 Nucleated RBC % 0 Sodium Potassium Chloride Carbon Dioxide Anion Gap BUN Creatinine Creat Clearance w eGFR POC Glucometer Random Glucose Hemoglobin A1c % Lactic Acid 2.0 Calcium Phosphorus Magnesium Total Bilirubin AST ALT Alkaline Phosphatase Creatine Kinase 438 H Creatine Kinase Index 1.3 CK-MB (CK-2) 5.928 H Troponin I 0.07 H D Total Protein Albumin CSF Appearance CSF Color CSF WBC CSF RBC CSF Neutrophils CSF Lymphocytes CSF Eosinophils CSF Basophils CSF Macrophages CSF Plasma Cells CSF Diff Comment CSF Comment CSF Glucose CSF Total Protein 05/09/18 05/09/18 05:30 05:30 WBC RBC Hgb Hct MCV MCH MCHC RDW Plt Count MPV Absolute Neuts (auto) Neutrophils % Lymphocytes % Monocytes % Eosinophils % Basophils % Nucleated RBC % Sodium 137 Potassium 3.2 L Chloride 102 Carbon Dioxide 26 Anion Gap 9 BUN 26 H Creatinine 1.8 H Creat Clearance w eGFR 38.95 POC Glucometer Random Glucose 307 H* D Hemoglobin A1c % Lactic Acid Calcium 9.3 Phosphorus 2.7 D Magnesium 1.7 L Total Bilirubin 0.7 AST 20 ALT 27 Alkaline Phosphatase 56 Creatine Kinase Creatine Kinase Index CK-MB (CK-2) Troponin I 0.07 H Cancelled Total Protein 7.5 Albumin 3.2 L CSF Appearance CSF Color CSF WBC CSF RBC CSF Neutrophils CSF Lymphocytes CSF Eosinophils CSF Basophils CSF Macrophages CSF Plasma Cells CSF Diff Comment CSF Comment CSF Glucose CSF Total Protein Active Medications Generic Name Dose Route Start Last Admin Trade Name Freq PRN Reason Stop Dose Admin Amlodipine Besylate 10 mg 05/08/18 11:15 05/09/18 09:49 Norvasc - PO 10 mg DAILY [facility] Administration Chlorhexidine Gluconate 1 applic 05/08/18 22:00 05/08/18 22:26 Hibiclens For Decolonization - TP 1 applic HS [facility] Administration Cyclobenzaprine HCl 5 mg 06/11/18 22:00 Flexeril - PO BID [facility] Hydrochlorothiazide 25 mg 05/10/18 10:00 Hctz - PO DAILY [facility] Nicardipine HCl 25 mg/ 250 mls @ 25 mls/hr 05/09/18 00:30 05/09/18 01:17 Dextrose IVPB 5 mg/hr TITR [facility] 50 mls/hr Titration Protocol 2.5 MG/HR Insulin Aspart 1 vial 05/08/18 16:00 05/09/18 10:01 Novolog Vial Sliding Scale - SQ 10 units Q4HWA [facility] Administration Protocol Mupirocin 1 applic 05/08/18 22:00 05/09/18 09:50 Bactroban Ointment (For Decolonization) - NS 05/13/18 21:59 1 applic BID [facility] Administration Potassium Chloride 40 meq 05/09/18 11:40 05/09/18 12:31 K-Dur - PO 40 meq BID [facility] Administration Valsartan 320 mg 05/10/18 10:00 Diovan - PO DAILY [facility] ASSESSMENT/PLAN: 1) Hypertensive Emergency resulting in encephalopathy --AMS most likely due to this factor alone --f/u MRI --Improving pressures with resolving altered status; slightly confused still --Restart Diovan 320mg PO, --Restart Norvasc 10 qDaily PO --Restart HCTZ home dose --May need BB on board pending stability of above meds --Continue to monitor pressures --Wean of cardene gtt --Echo with Mild TR, trace MR, and mild AR. Unchanged from previous with diastolic LV dysfunction and concentric LV hypertrophy 2) Poorly controlled DM --Continue ISS --BGM ACHS -- Start Levemir 10 U HS for long-term coverage due to persistently high glucose on ISS --A1C 13% noted this admission --No anion gap currently 3) Elevated troponin --Mild elevation 0.07, 0.07 --Trend --Likely combination of demand from HTN event and diminished clearing effect from kidney dysfunction early on 4) LAKSHMI vs. LAKSHMI on CKD? --Unknown baseline --Likely underperfusion due to HTN --Resolving with fluids and controlled BP --Nephrology on board --Can restart Diovan with aid to proteinuria FEN: Fluids: None indicated currently Electrolyte abnormalities: Hypokalemia (Kdur 40mg BID), HypoMg (repleted Mag- ox) Nutrition: Low sodium diet PPX: DVT - SCDs while HTN emergency resolving Dispo: Continue ICU while weaning Cardene gtt Case discussed with Dr. Santosh Vaca, DO - IM PGY-1 Visit type - Emergency Visit Emergency Visit: No - New Patient This patient is new to me today: No - Critical Care Critical Care patient: Yes Total Critical Care Time (in minutes): 35 Critical Care Statement: The care of this patient involved high complexity decision making to prevent further life threatening deterioration of the patient 's condition and/or to evaluate & treat vital organ system(s) failure or risk of failure.
[2018-05-09] MEDS ORDERED: VALSARTAN 160 MG TABLET (UD) PO SCH ×2 (12:44→12:53)
--- NOTE | 2018-05-09 12:49 | PN ---
Progress Note, Physician History of Present Illness: Pt seen and examined at bedside. His mental status is markedly improved. His memory is much better. He says he was not taking any of his BP or DM meds. - Current Medication List Current Medications: Active Medications Amlodipine Besylate (Norvasc -) 10 mg PO DAILY [facility] Last Admin: 05/09/18 09:49 Dose: 10 mg Chlorhexidine Gluconate (Hibiclens For Decolonization -) 1 applic TP HS [facility] Last Admin: 05/08/18 22:26 Dose: 1 applic Cyclobenzaprine HCl (Flexeril -) 5 mg PO BID [facility] Hydrochlorothiazide (Hctz -) 25 mg PO DAILY [facility] Nicardipine HCl 25 mg/ (Dextrose) 250 mls @ 25 mls/hr IVPB TITR [facility]; Protocol Last Titration: 05/09/18 01:17 Dose: 5 mg/hr, 50 mls/hr Insulin Aspart (Novolog Vial Sliding Scale -) 1 vial SQ Q4HWA [facility]; Protocol Last Admin: 05/09/18 10:01 Dose: 10 units Mupirocin (Bactroban Ointment (For Decolonization) -) 1 applic NS BID [facility] Stop: 05/13/18 21:59 Last Admin: 05/09/18 09:50 Dose: 1 applic Potassium Chloride (K-Dur -) 40 meq PO BID [facility] Last Admin: 05/09/18 12:31 Dose: 40 meq Valsartan (Diovan -) 320 mg PO DAILY [facility] - Objective Vital Signs: Vital Signs Temperature 98.7 F 05/09/18 09:58 Pulse Rate 80 05/09/18 09:58 Respiratory Rate 16 05/09/18 09:58 Blood Pressure 157/68 05/09/18 09:58 O2 Sat by Pulse Oximetry (%) 99 05/08/18 20:47 Constitutional: Yes: Calm Eyes: Yes: Conjunctiva Clear HENT: Yes: Atraumatic Cardiovascular: Yes: S1, S2 Respiratory: Yes: CTA Bilaterally Gastrointestinal: Yes: Soft Genitourinary: Yes: Jaramillo Present Musculoskeletal: Yes: WNL Edema: No Integumentary: Yes: WNL Neurological: Yes: Oriented Labs: CBC, BMP 05/09/18 05:30 05/09/18 05:30 INR, PTT INR 0.97 (0.82-1.09) 05/08/18 05:30 Problem List - Problems (1) CKD (chronic kidney disease) Code(s): N18.9 - CHRONIC KIDNEY DISEASE, UNSPECIFIED (2) Altered mental status Code(s): R41.82 - ALTERED MENTAL STATUS, UNSPECIFIED Qualifiers: Altered mental status type: unspecified Qualified Code(s): R41.82 - Altered mental status, unspecified (3) Encephalopathy Code(s): G93.40 - ENCEPHALOPATHY, UNSPECIFIED (4) Hyperglycemia Code(s): R73.9 - HYPERGLYCEMIA, UNSPECIFIED (5) Hypertension Code(s): I10 - ESSENTIAL (PRIMARY) HYPERTENSION Qualifiers: Hypertension type: unspecified Qualified Code(s): I10 - Essential (primary ) hypertension (6) Hypertensive emergency Code(s): I16.1 - HYPERTENSIVE EMERGENCY Assessment/Plan Current Medications Generic Name Dose Route Start Last Admin Trade Name Freq PRN Reason Stop Dose Admin Amlodipine Besylate 10 mg 05/08/18 11:15 05/09/18 09:49 Norvasc - PO 10 mg DAILY [facility] Administration Chlorhexidine Gluconate 1 applic 05/08/18 22:00 05/08/18 22:26 Hibiclens For Decolonization - TP 1 applic HS [facility] Administration Cyclobenzaprine HCl 5 mg 05/09/18 22:00 Flexeril - PO BID [facility] Hydrochlorothiazide 25 mg 05/09/18 12:44 Hctz - PO DAILY [facility] Nicardipine HCl 25 mg/ 250 mls @ 25 mls/hr 05/09/18 00:30 05/09/18 01:17 Dextrose IVPB 5 mg/hr TITR [facility] 50 mls/hr Titration Protocol 2.5 MG/HR Insulin Aspart 1 vial 05/08/18 16:00 05/09/18 10:01 Novolog Vial Sliding Scale - SQ 10 units Q4HWA [facility] Administration Protocol Mupirocin 1 applic 05/08/18 22:00 05/09/18 09:50 Bactroban Ointment (For Decolonization) - NS 05/13/18 21:59 1 applic BID [facility] Administration Potassium Chloride 40 meq 05/09/18 11:40 05/09/18 12:31 K-Dur - PO 40 meq BID [facility] Administration Valsartan 320 mg 05/09/18 12:44 Diovan - PO DAILY [facility] Laboratory Tests 05/09/18 05:30 NEO M-Husam Pending ALEKSEY Screen Pending c-ANCA Pending Proteinase 3 (PR3) Pending p-ANCA Pending Atypical p-ANCA Pending Myeloperoxidase Ab Pending Double Strand DNA Ab Pending Glomerular Base Memb Ab Pending Impression 1. CKD 2. proteinuria 3. DM - uncontrolled 4. HTN with urgency 5. change in mental status 6. hx of non compliance 7. hyperglycemia 8. lactic acidosis 9. hypokalemia Plan - renal function is improving - bp is improving - start re-introducing his PO meds - cardio eval - hypertensive emergency likely from non compliance - can resume arb, will help with proteinuria - check prt to community health educator ratio - follow csf studies - neuro and ID follow up - will follow Dr Zamora
--- NOTE | 2018-05-09 12:50 | PN ---
Physical Exam: SUBJECTIVE: Patient seen and examined at bedside. No new complaints. No overnight events. More alert today. Continues to be confused. Denies CP,SOB, abdominal pain, palpitations, N/V. OBJECTIVE: Vital Signs Period Temp Pulse Resp BP Sys/Dasilva Pulse Ox Last 24 Hr 98 F-99.7 F 70-115 16-19 144-186/68-115 99-99 GENERAL: Awake but confused. HEAD: NC/AT EYES: PERRL, EOMI ENT: moist mucous membranes. NECK: supple, No JVD. LUNGS: CTAB , no wheezing or rales. HEART:RRR, NL S1S2, NO M/G/R ABDOMEN: Soft,obese, NT/ND, NABS, no organomegally. Laboratory Results - last 24 hr 05/08/18 05/08/18 05/08/18 08:41 09:30 10:48 WBC RBC Hgb Hct MCV MCH MCHC RDW Plt Count MPV Absolute Neuts (auto) Neutrophils % Lymphocytes % Monocytes % Eosinophils % Basophils % Nucleated RBC % Sodium Potassium Chloride Carbon Dioxide Anion Gap BUN Creatinine Creat Clearance w eGFR POC Glucometer > 400 Random Glucose Hemoglobin A1c % Lactic Acid Calcium Phosphorus Magnesium Total Bilirubin AST ALT Alkaline Phosphatase Creatine Kinase Creatine Kinase Index CK-MB (CK-2) Troponin I Total Protein Albumin Ur Random Sodium 41 Ur Random Potassium 18.9 Ur Random Chloride 33 Urine Creatinine 30.2 CSF Eosinophils No Result Required. CSF Basophils No Result Required. CSF Macrophages No Result Required. CSF Plasma Cells No Result Required. CSF Diff Comment No Result Required. CSF Comment No Result Required. 05/08/18 05/08/18 05/08/18 12:10 13:25 13:25 WBC RBC Hgb Hct MCV MCH MCHC RDW Plt Count MPV Absolute Neuts (auto) Neutrophils % Lymphocytes % Monocytes % Eosinophils % Basophils % Nucleated RBC % Sodium Potassium Chloride Carbon Dioxide Anion Gap BUN Creatinine Creat Clearance w eGFR POC Glucometer > 400 Random Glucose Hemoglobin A1c % 13.0 H Lactic Acid Calcium Phosphorus Magnesium Total Bilirubin AST ALT Alkaline Phosphatase Creatine Kinase Cancelled Creatine Kinase Index CK-MB (CK-2) Troponin I Cancelled Total Protein Albumin Ur Random Sodium Ur Random Potassium Ur Random Chloride Urine Creatinine CSF Eosinophils CSF Basophils CSF Macrophages CSF Plasma Cells CSF Diff Comment CSF Comment 05/08/18 05/08/18 05/08/18 13:25 13:25 14:21 WBC RBC Hgb Hct MCV MCH MCHC RDW Plt Count MPV Absolute Neuts (auto) Neutrophils % Lymphocytes % Monocytes % Eosinophils % Basophils % Nucleated RBC % Sodium 140 Potassium 3.2 L Chloride 103 Carbon Dioxide 25 Anion Gap 12 BUN 25 H Creatinine 2.1 H Creat Clearance w eGFR POC Glucometer [phone] Random Glucose 239 H D Hemoglobin A1c % Lactic Acid 6.5 H* Calcium 10.0 Phosphorus Magnesium Total Bilirubin AST ALT Alkaline Phosphatase Creatine Kinase 413 H Creatine Kinase Index 0.8 CK-MB (CK-2) 3.69 H Troponin I 0.04 D Total Protein Albumin Ur Random Sodium Ur Random Potassium Ur Random Chloride Urine Creatinine CSF Eosinophils CSF Basophils CSF Macrophages CSF Plasma Cells CSF Diff Comment CSF Comment 05/08/18 05/08/18 05/08/18 15:40 15:40 16:31 WBC RBC Hgb Hct MCV MCH MCHC RDW Plt Count MPV Absolute Neuts (auto) Neutrophils % Lymphocytes % Monocytes % Eosinophils % Basophils % Nucleated RBC % Sodium 142 Potassium 3.6 Chloride 105 Carbon Dioxide 25 Anion Gap 12 BUN 24 H Creatinine 1.9 H Creat Clearance w eGFR POC Glucometer [phone] Random Glucose 131 H D Hemoglobin A1c % Lactic Acid 3.1 H* Calcium 9.5 Phosphorus Magnesium Total Bilirubin AST ALT Alkaline Phosphatase Creatine Kinase Creatine Kinase Index CK-MB (CK-2) Troponin I Total Protein Albumin Ur Random Sodium Ur Random Potassium Ur Random Chloride Urine Creatinine CSF Eosinophils CSF Basophils CSF Macrophages CSF Plasma Cells CSF Diff Comment CSF Comment 05/08/18 05/08/18 05/08/18 18:12 19:03 19:03 WBC RBC Hgb Hct MCV MCH MCHC RDW Plt Count MPV Absolute Neuts (auto) Neutrophils % Lymphocytes % Monocytes % Eosinophils % Basophils % Nucleated RBC % Sodium Potassium Chloride Carbon Dioxide Anion Gap BUN Creatinine Creat Clearance w eGFR POC Glucometer [phone] Random Glucose Hemoglobin A1c % Lactic Acid 2.0 Calcium Phosphorus Magnesium Total Bilirubin AST ALT Alkaline Phosphatase Creatine Kinase 438 H Creatine Kinase Index 1.3 CK-MB (CK-2) 5.928 H Troponin I 0.07 H D Total Protein Albumin Ur Random Sodium Ur Random Potassium Ur Random Chloride Urine Creatinine CSF Eosinophils CSF Basophils CSF Macrophages CSF Plasma Cells CSF Diff Comment CSF Comment 05/09/18 05/09/18 05/09/18 05:30 05:30 05:30 WBC 17.3 H D RBC 4.54 Hgb 12.7 Hct 37.9 MCV 83.3 MCH 27.9 MCHC 33.5 RDW 13.7 Plt Count 238 MPV 9.5 Absolute Neuts (auto) 13.9 Neutrophils % 80.7 Lymphocytes % 14.7 Monocytes % 4.3 D Eosinophils % 0.0 D Basophils % 0.3 Nucleated RBC % 0 Sodium 137 Potassium 3.2 L Chloride 102 Carbon Dioxide 26 Anion Gap 9 BUN 26 H Creatinine 1.8 H Creat Clearance w eGFR 38.95 POC Glucometer Random Glucose 307 H* D Hemoglobin A1c % Lactic Acid Calcium 9.3 Phosphorus 2.7 D Magnesium 1.7 L Total Bilirubin 0.7 AST 20 ALT 27 Alkaline Phosphatase 56 Creatine Kinase Creatine Kinase Index CK-MB (CK-2) Troponin I 0.07 H Cancelled Total Protein 7.5 Albumin 3.2 L Ur Random Sodium Ur Random Potassium Ur Random Chloride Urine Creatinine CSF Eosinophils CSF Basophils CSF Macrophages CSF Plasma Cells CSF Diff Comment CSF Comment Active Medications Generic Name Dose Route Start Last Admin Trade Name Stevieq PRN Reason Stop Dose Admin Amlodipine Besylate 10 mg 05/08/18 11:15 05/09/18 09:49 Norvasc - PO 10 mg DAILY WYATT Administration Chlorhexidine Gluconate 1 applic 05/08/18 22:00 05/08/18 22:26 Hibiclens For Decolonization - TP 1 applic HS WYATT Administration Cyclobenzaprine HCl 5 mg 05/09/18 22:00 Flexeril - PO BID WYATT Hydrochlorothiazide 25 mg 05/09/18 12:44 Hctz - PO DAILY WYATT Nicardipine HCl 25 mg/ 250 mls @ 25 mls/hr 05/09/18 00:30 05/09/18 01:17 Dextrose IVPB 5 mg/hr TITR WYATT 50 mls/hr Titration Protocol 2.5 MG/HR Insulin Aspart 1 vial 05/08/18 16:00 05/09/18 10:01 Novolog Vial Sliding Scale - SQ 10 units Q4HWA WYATT Administration Protocol Magnesium Oxide 400 mg 05/09/18 13:00 Mag-Ox - PO BID WYATT Mupirocin 1 applic 05/08/18 22:00 05/09/18 09:50 Bactroban Ointment (For Decolonization) - NS 05/13/18 21:59 1 applic BID WYATT Administration Potassium Chloride 40 meq 05/09/18 11:40 05/09/18 12:31 K-Dur - PO 40 meq BID WYATT Administration Valsartan 320 mg 05/09/18 12:44 Diovan - PO DAILY WYATT ASSESSMENT/PLAN: 57 yo M with pmhx of HTN and DM presented to ER with AMS admitted to ICU for acute hypertensive emergency with encephalopathy. Neuro: * Encephalopathy most likely 2/2 HTN emergency. * Remains confused. * CT head was negative * Neuro consult appreciated * CSF analysis shows increased Protien and glucose Pulm: * No acute respiratory issues at this time] * supplemental O2 PRN CV: * Will restart home BP meds: Amlodipine, Metoprolol, and Valsartan * Will wean off Cardene drip GI: * tolerating diet Renal: * Will replete Mg * repeat BMP in AM ID: * CSF not consistant with meningitis. * Will f/u CSF analysis * ID consult appreciated. * Will f/u cultures DISPO: Will continue to monitor in ICU Visit type - Emergency Visit Emergency Visit: Yes ED Registration Date: 05/08/18 Care time: The patient presented to the Emergency Department on the above date and was hospitalized for further evaluation of their emergent condition. - New Patient This patient is new to me today: Yes Date on this admission: 05/09/18 - Critical Care Critical Care patient: Yes Total Critical Care Time (in minutes): 49 Critical Care Statement: The care of this patient involved high complexity decision making to prevent further life threatening deterioration of the patient 's condition and/or to evaluate & treat vital organ system(s) failure or risk of failure.
[2018-05-09 13:09] LABS: RATIO URIN PROTEIN/URIN CREAT 1.7 MG/DL
[2018-05-09] MEDS ORDERED: VALSARTAN 160 MG TABLET (UD) PO ONE ×2 (13:55)
[2018-05-09] MEDS ORDERED: HYDROCHLOROTHIAZIDE 25 MG TABLET (FP) PO ONE (13:56)
[2018-05-09] MEDS ORDERED: MAGNESIUM OXIDE 400 MG TABLET (FP) PO SCH ×2 (14:30→22:00)
[2018-05-09] MEDS: VALSARTAN 160 MG TABLET (UD) PO SCH (14:47)
[2018-05-09] MEDS: HYDROCHLOROTHIAZIDE 25 MG TABLET (FP) PO SCH (14:47)
--- NOTE | 2018-05-09 15:24 | PN ---
Teaching Attending Note Name of Resident: Sher Vaca ATTENDING PHYSICIAN STATEMENT I saw and evaluated the patient. I reviewed the resident's note and discussed the case with the resident. I agree with the resident's findings and plan as documented. SUBJECTIVE: Patient is feeling better today , awake, alert , disoriented to time only. follows commands. OBJECTIVE: Vital Signs Temperature 98.7 F 05/09/18 09:58 Pulse Rate 82 05/09/18 14:00 Respiratory Rate 16 05/09/18 14:00 Blood Pressure 170/98 05/09/18 14:00 O2 Sat by Pulse Oximetry (%) 99 05/08/18 20:47 CBCD WBC 17.3 K/mm3 (4.0-10.0) H D 05/09/18 05:30 RBC 4.54 M/mm3 (4.00-5.60) 05/09/18 05:30 Hgb 12.7 GM/dL (11.7-16.9) 05/09/18 05:30 Hct 37.9 % (35.4-49) 05/09/18 05:30 MCV 83.3 fl (80-96) 05/09/18 05:30 MCHC 33.5 g/dl (32.0-35.9) 05/09/18 05:30 RDW 13.7 % (11.9-15.9) 05/09/18 05:30 Plt Count 238 K/MM3 (134-434) 05/09/18 05:30 MPV 9.5 fl (7.5-11.1) 05/09/18 05:30 CMP Sodium 137 mmol/L (136-145) 05/09/18 05:30 Potassium 3.2 mmol/L (3.5-5.1) L 05/09/18 05:30 Chloride 102 mmol/L (98-107) 05/09/18 05:30 Carbon Dioxide 26 mmol/L (21-32) 05/09/18 05:30 Anion Gap 9 (8-16) 05/09/18 05:30 BUN 26 mg/dL (7-18) H 05/09/18 05:30 Creatinine 1.8 mg/dL (0.7-1.3) H 05/09/18 05:30 Creat Clearance w eGFR 38.95 (>60) 05/09/18 05:30 Random Glucose 307 mg/dL (74-106) H* D 05/09/18 05:30 Calcium 9.3 mg/dL (8.5-10.1) 05/09/18 05:30 Total Bilirubin 0.7 mg/dL (0.2-1.0) 05/09/18 05:30 AST 20 U/L (15-37) 05/09/18 05:30 ALT 27 U/L (12-78) 05/09/18 05:30 Alkaline Phosphatase 56 U/L (45-117) 05/09/18 05:30 Total Protein 7.5 g/dl (6.4-8.2) 05/09/18 05:30 Albumin 3.2 g/dl (3.4-5.0) L 05/09/18 05:30 CARDIAC ENZYMES Creatine Kinase 438 IU/L (39-308) H 05/08/18 19:03 Troponin I 0.07 ng/ml (0.00-0.05) H 05/09/18 05:30 Current Medications Generic Name Dose Route Start Last Admin Trade Name Freq PRN Reason Stop Dose Admin Amlodipine Besylate 10 mg 05/08/18 11:15 05/09/18 09:49 Norvasc - PO 10 mg DAILY WYATT Administration Chlorhexidine Gluconate 1 applic 05/08/18 22:00 05/08/18 22:26 Hibiclens For Decolonization - TP 1 applic HS WYATT Administration Cyclobenzaprine HCl 5 mg 05/09/18 22:00 Flexeril - PO BID WYATT Discontinued for now. Hydrochlorothiazide 25 mg 05/09/18 14:30 05/09/18 14:47 Hctz - PO 25 mg DAILY WYATT Administration Nicardipine HCl 25 mg/ 250 mls @ 25 mls/hr 05/09/18 00:30 05/09/18 13:56 Dextrose IVPB 2 mg/hr TITR WYATT 20 mls/hr Titration Protocol 2.5 MG/HR Insulin Aspart 1 vial 05/08/18 16:00 05/09/18 14:53 Novolog Vial Sliding Scale - SQ 12 units Q4HWA WYATT Administration Protocol Magnesium Oxide 400 mg 05/09/18 14:30 05/09/18 14:47 Mag-Ox - PO 400 mg BID WYATT Administration Mupirocin 1 applic 05/08/18 22:00 05/09/18 09:50 Bactroban Ointment (For Decolonization) - NS 05/13/18 21:59 1 applic BID WYATT Administration Potassium Chloride 40 meq 05/09/18 11:40 05/09/18 12:31 K-Dur - PO 40 meq BID WYATT Administration Valsartan 320 mg 05/09/18 14:30 05/09/18 14:47 Diovan - PO 320 mg DAILY WYATT Administration Home Medications Medication Instructions Recorded Valsartan [Diovan] 320 mg PO DAILY 08/19/12 Glipizide [Glipizide ER] 10 mg PO DAILY 12/11/15 Metoprolol Tartrate [Lopressor -] 200 mg PO BID 12/11/15 Ibuprofen [Motrin -] 600 mg PO TID PRN #21 tablet 10/09/17 Amlodipine Besylate [Norvasc -] 10 mg PO DAILY 12/19/17 Cyclobenzaprine HCl [Flexeril -] 5 mg PO BID 12/19/17 Hydrochlorothiazide [Hctz -] 25 mg PO DAILY 12/19/17 Microbiology 05/08/18 09:30 Cerebral Spinal Fluid - Lumbar Puncture Gram Stain - Final 05/08/18 09:30 Cerebral Spinal Fluid - Lumbar Puncture CSF Culture - Preliminary 05/08/18 07:16 Urine - Urine Clean Catch Urine Culture - Final NO GROWTH OBTAINED 05/08/18 08:30 Blood - Peripheral Venous Blood Culture - Preliminary NO GROWTH OBTAINED AFTER 24 HOURS, INCUBATION TO CONTINUE FOR 4 DAYS. 05/08/18 08:20 Blood - Peripheral Venous Blood Culture - Preliminary NO GROWTH OBTAINED AFTER 24 HOURS, INCUBATION TO CONTINUE FOR 4 DAYS. Vital Signs Temp 98.7 F 05/09/18 09:58 Pulse 82 05/09/18 14:00 Resp 16 05/09/18 14:00 BP 170/98 05/09/18 14:00 Pulse Ox 99 05/08/18 20:47 Intake & Output 05/08/18 05/09/18 05/09/18 23:59 11:59 23:59 Intake Total 2480 625 Output Total 1800 2100 Balance 680 -1475 Weight 90.5 kg Intake: IV 1000 625 1/2 Normal Saline 1,000 375 ml @ 75 mls/hr IV ASDIR [facility] Rx#:[id number] Cardene - 25 mg In D5w - 250 240 ml @ 2.5 MG/HR 25 mls /hr IVPB TITR WYATT Rx#: [id number] saline loch 1000 IVPB 300 Oral 1180 Output: Urine 1800 2100 [place] 1800 2100 Other: Voiding Method Indwelling Catheter Indwelling Catheter Height 5 ft 5 in Body Mass Index (BMI) 33.2 Weight Measurement Method Built in [facility] ABG Results ABG pH 7.41 (7.35-7.45) 05/08/18 08:42 ABG pCO2 at Pt Temp 45.6 mmHg (35-45) H 05/08/18 08:42 ABG pO2 at Pt Temp 71.5 mmHg (80-100) L 05/08/18 08:42 ABG HCO3 28.2 meq/L (22-26) H 05/08/18 08:42 ABG O2 Sat (Measured) 94.8 % (90-98.9) 05/08/18 08:42 ABG O2 Content 16.7 % vol (15-22) 05/08/18 08:42 ABG Base Excess 3.4 meq/l (-2-2) H 05/08/18 08:42 Abnormal Lab Results 05/08/18 05/08/18 05/08/18 08:41 15:40 15:40 WBC Potassium BUN 24 H Creatinine 1.9 H Random Glucose 131 H D Lactic Acid 3.1 H* Magnesium Creatine Kinase CK-MB (CK-2) Troponin I Albumin U Random Total Protein 51 H 05/08/18 05/09/18 05/09/18 19:03 05:30 05:30 WBC 17.3 H D Potassium 3.2 L BUN 26 H Creatinine 1.8 H Random Glucose 307 H* D Lactic Acid Magnesium 1.7 L Creatine Kinase 438 H CK-MB (CK-2) 5.928 H Troponin I 0.07 H D 0.07 H Albumin 3.2 L U Random Total Protein PE: comfortable, follows commands. Disoriented to year only. rest of PE per the resident's note ASSESSMENT AND PLAN: Patient is a 57yo male presented with hypertensive emergency with blood pressure of 223/114, with change of mental status. # Acute change of mental status improved due to having hypertensive encephalopathy , will start the patient on his home meds.and wean him off the cardine drip , continues to be in ICU. Neuro consult discussed with and appreciated. # Hypertensive emergency on cardine drip titrate to SBP of 160-180 , neuro consult and restart his home meds. # Acute Hyperglycemia sliding scale with coverage with insulin, bs check every 4 hrs. Levemir 5u hs and start him on 10U levemir in am # acute over chronic kidney failure , will get us f kidney and check lytes, for consult and appreciated/ DVT Px: SCds for now, since patient has elevated BP. critical care time of 35 minutes
[2018-05-09] MEDS ORDERED: ACETAMINOPHEN 325 MG TABLET (FP) PO ONE (17:15)
[2018-05-09] MEDS ORDERED: LABETALOL HCL 100 MG TABLET (FP) PO ONE (17:15)
[2018-05-09] MEDS ORDERED: INSULIN (LEVEMIR) 100 UNITS/ML UNITS SQ SCH ×2 (22:00)
[2018-05-09] MEDS ORDERED: CYCLOBENZAPRINE HCL 10 MG TABLET (FP) PO SCH (22:00)
[2018-05-09] MEDS: CHLORHEXIDINE GLUCONATE 4% CLEANSER FOR DECOLONIZATION TP SCH (22:02)
[2018-05-10] MEDS: NICARDIPINE 25 MG in DEXTROSE 5%-WATER - 240 ML IVPB SCH ×2 (01:00→12:10)
--- NOTE | 2018-05-10 05:47 | PN ---
Physical Exam: SUBJECTIVE: Patient seen and examined at bed side in ICU AAOx3 but slow in reponse , still lethargic and fatigue , complain of headache today morning frontal pulsating improve with Tylenol denies any chest pain, abdominal, pain , N/V/D denies dizziness or light headedness. started on Nika GTT over night OBJECTIVE: Vital Signs Period Temp Pulse Resp BP Sys/Dasilva Pulse Ox Last 24 Hr 98 F-99.7 F 70-89 16-18 115-170/66-102 99 GENERAL: AAOx3 with slight confusion , in NAD HEAD: NC/AT EYES: PERRL, EOMI, sclera anicteric, conjunctiva clear. ENT: Ears normal, nares patent, oropharynx clear without exudates, moist mucous membranes. NECK: full range of motion, supple. LUNGS: CTA B/L , no wheezes, no crackles, no accessory muscle use. HEART: Regular rate and rhythm, S1, S2 without murmur, rub or gallop. ABDOMEN: Soft, ND/NT, normoactive bowel sounds, no guarding, no rebound, EXTREMITIES: 2+ pulses, warm, well-perfused, no edema. NEUROLOGICAL: Cranial nerves II through XII grossly intact. Normal speech, gait not observed. PSYCH: Normal mood, normal affect. SKIN: Warm, dry, normal turgor, Laboratory Results - last 24 hr 05/08/18 05/08/18 05/09/18 08:41 10:48 05:30 WBC 17.3 H D RBC 4.54 Hgb 12.7 Hct 37.9 MCV 83.3 MCH 27.9 MCHC 33.5 RDW 13.7 Plt Count 238 MPV 9.5 Absolute Neuts (auto) 13.9 Neutrophils % 80.7 Lymphocytes % 14.7 Monocytes % 4.3 D Eosinophils % 0.0 D Basophils % 0.3 Nucleated RBC % 0 Sodium Potassium Chloride Carbon Dioxide Anion Gap BUN Creatinine Creat Clearance w eGFR POC Glucometer > 400 Random Glucose Calcium Phosphorus Magnesium Total Bilirubin AST ALT Alkaline Phosphatase Troponin I Total Protein Albumin U Random Total Protein 51 H Ur Random Sodium 41 Ur Random Potassium 18.9 Ur Random Chloride 33 Urine Creatinine 30.2 Protein/Creatinin Ratio 1.7 05/09/18 05/09/18 05/09/18 05:30 05:30 14:53 WBC RBC Hgb Hct MCV MCH MCHC RDW Plt Count MPV Absolute Neuts (auto) Neutrophils % Lymphocytes % Monocytes % Eosinophils % Basophils % Nucleated RBC % Sodium 137 Potassium 3.2 L Chloride 102 Carbon Dioxide 26 Anion Gap 9 BUN 26 H Creatinine 1.8 H Creat Clearance w eGFR 38.95 POC Glucometer > 400 Random Glucose 307 H* D Calcium 9.3 Phosphorus 2.7 D Magnesium 1.7 L Total Bilirubin 0.7 AST 20 ALT 27 Alkaline Phosphatase 56 Troponin I 0.07 H Cancelled Total Protein 7.5 Albumin 3.2 L U Random Total Protein Ur Random Sodium Ur Random Potassium Ur Random Chloride Urine Creatinine Protein/Creatinin Ratio Active Medications Generic Name Dose Route Start Last Admin Trade Name Freq PRN Reason Stop Dose Admin Amlodipine Besylate 10 mg 05/08/18 11:15 05/09/18 09:49 Norvasc - PO 10 mg DAILY WYATT Administration Chlorhexidine Gluconate 1 applic 05/08/18 22:00 05/09/18 22:02 Hibiclens For Decolonization - TP 1 applic HS WYATT Administration Hydrochlorothiazide 25 mg 05/09/18 14:30 05/09/18 14:47 Hctz - PO 25 mg DAILY WYATT Administration Nicardipine HCl 25 mg/ 250 mls @ 25 mls/hr 05/09/18 00:30 05/09/18 22:06 Dextrose IVPB 3 mg/hr TITR WYATT 30 mls/hr Titration Protocol 2.5 MG/HR Insulin Aspart 1 vial 05/08/18 16:00 05/09/18 22:02 Novolog Vial Sliding Scale - SQ 8 units Q4HWA WYATT Administration Protocol Insulin Detemir 10 units 05/10/18 07:00 Levemir Vial SQ AM WYATT Insulin Detemir 5 units 05/09/18 22:00 05/09/18 22:02 Levemir Vial SQ 5 units HS WYATT Administration Mupirocin 1 applic 05/08/18 22:00 05/09/18 22:03 Bactroban Ointment (For Decolonization) - NS 05/13/18 21:59 1 applic BID WYATT Administration Potassium Chloride 40 meq 05/09/18 11:40 05/09/18 22:02 K-Dur - PO 05/10/18 10:01 40 meq BID WYATT Administration Valsartan 320 mg 05/09/18 14:30 05/09/18 14:47 Diovan - PO 320 mg DAILY WYATT Administration CBC, BMP 05/10/18 06:00 05/10/18 06:00 ASSESSMENT/PLAN: 57 yo M with pmhx of HTN and DM presented to ER with AMS admitted to ICU for acute hypertensive emergency with encephalopathy. Neuro: * hypertensive Encephalopathy, improved * AAOx3 with slight consfusion . * CT head was negative, MRI negative * Neuro consulted Dr Lyon recommended continue supportive care * CSF analysis shows increased Protien and glucose Pulm: * No acute respiratory issues at this time] * supplemental O2 PRN CV: * Will restart home BP meds: Amlodipine, Metoprolol, and Valsartan, HCTZ * Will wean off Cardene drip nd switch to procardia GI: * tolerating low NA diet * start on colace and Miralax for constipation ,last BM Renal: LAKSHMI on CKD * BUN/Cr 26/1.7 .monitor * Will replete K (3.4 today ) * repeat BMP in AM * Lactic acidosis resolved # Endo DM uncontrolled * ISS * BGM * Levemir 10 units HS #ID: * CSF not consistant with meningitis. * CSF cx negative for infection * ID consult appreciated. * urine cultures negative , blood cx negative #Despo: Will continue to monitor in ICU Visit type - Emergency Visit Emergency Visit: Yes ED Registration Date: 05/08/18 Care time: The patient presented to the Emergency Department on the above date and was hospitalized for further evaluation of their emergent condition. - New Patient This patient is new to me today: Yes Date on this admission: 05/10/18 - Critical Care Critical Care patient: Yes Total Critical Care Time (in minutes): 45 Critical Care Statement: The care of this patient involved high complexity decision making to prevent further life threatening deterioration of the patient 's condition and/or to evaluate & treat vital organ system(s) failure or risk of failure.
[2018-05-10 06:16] LABS: BASO % 0.6 % (0-2.0); EOS % 0.9 % (0-4.5); HEMATOCRIT 38.3 % (35.4-49); HEMOGLOBIN 12.9 GM/dL (11.7-16.9); LYMPH % 23.9 % (8-40); MCH 28.1 pg (25.7-33.7); MCHC 33.6 g/dl (32.0-35.9); MEAN CELL VOLUME 83.5 fl (80-96); MEAN PLT VOLUME 9.4 fl (7.5-11.1); MONO % 5.2 % (3.8-10.2); NEUT % 69.4 % (42.8-82.8); PLATELET COUNT 245 K/MM3 (134-434); RBC 4.59 M/mm3 (4.00-5.60); RDW 13.9 % (11.9-15.9); WHITE BLOOD COUNT 8.9 K/mm3 (4.0-10.0)
[2018-05-10] MEDS: INSULIN SLIDING SCALE (NOVOLOG) 1 VIAL SQ SCH ×6 (06:37→21:19)
[2018-05-10] MEDS: INSULIN (LEVEMIR) 100 UNITS/ML UNITS SQ SCH (06:37)
[2018-05-10 06:41] LABS: CHLORIDE 103 mmol/L (98-107); POTASSIUM 3.4 mmol/L (3.5-5.1); SODIUM 138 mmol/L (136-145)
--- NOTE | 2018-05-10 06:42 | PN ---
Physical Exam: SUBJECTIVE: Pt is alert and fully oriented today. Overnight pt had to be placed on low rate Cardene gtt to control BP. Pt currently remains on gtt, however is being weaned off. Pt complaining of headache currently frontal and b/l in nature. Has been on and off since yesterday without any visual changes, aura's, or other symptoms. OBJECTIVE: Vital Signs Period Temp Pulse Resp BP Sys/Dasilva Pulse Ox Last 24 Hr 98 F-99.1 F 72-89 16-18 115-170/66-101 99 GENERAL: NAD, laying in bed, alert, oriented to person, place and date HEENT: NC/AT, EOMI, STEFANY, MMM NECK: No JVD, no neck stiffness LUNGS: CTA bilaterally, no wheezes, no crackles, no accessory muscle use. HEART: RRR, S1, S2 with 2/6 systolic murmur at LLSB and 2/6 diastolic RUSB murmur ABDOMEN: Soft, nontender, nondistended, normoactive bowel sounds, no guarding, no hepatomegaly, no masses. EXTREMITIES: 2+ DP pulses, warm, well-perfused, no edema. 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 Normal speech, strength 5/5 in upper and lower extremities, sensation intact throughout. PSYCH: Normal mood, normal affect. SKIN: Warm, dry, no rashes or lesions noted Laboratory Results - last 24 hr 05/08/18 05/08/18 05/09/18 08:41 10:48 05:30 WBC 17.3 H D RBC 4.54 Hgb 12.7 Hct 37.9 MCV 83.3 MCH 27.9 MCHC 33.5 RDW 13.7 Plt Count 238 MPV 9.5 Absolute Neuts (auto) 13.9 Neutrophils % 80.7 Lymphocytes % 14.7 Monocytes % 4.3 D Eosinophils % 0.0 D Basophils % 0.3 Nucleated RBC % 0 Sodium Potassium Chloride Carbon Dioxide Anion Gap BUN Creatinine Creat Clearance w eGFR POC Glucometer > 400 Random Glucose Calcium Phosphorus Magnesium Total Bilirubin AST ALT Alkaline Phosphatase Troponin I Total Protein Albumin U Random Total Protein 51 H Ur Random Sodium 41 Ur Random Potassium 18.9 Ur Random Chloride 33 Urine Creatinine 30.2 Protein/Creatinin Ratio 1.7 05/09/18 05/09/18 05/09/18 05:30 05:30 14:53 WBC RBC Hgb Hct MCV MCH MCHC RDW Plt Count MPV Absolute Neuts (auto) Neutrophils % Lymphocytes % Monocytes % Eosinophils % Basophils % Nucleated RBC % Sodium 137 Potassium 3.2 L Chloride 102 Carbon Dioxide 26 Anion Gap 9 BUN 26 H Creatinine 1.8 H Creat Clearance w eGFR 38.95 POC Glucometer > 400 Random Glucose 307 H* D Calcium 9.3 Phosphorus 2.7 D Magnesium 1.7 L Total Bilirubin 0.7 AST 20 ALT 27 Alkaline Phosphatase 56 Troponin I 0.07 H Cancelled Total Protein 7.5 Albumin 3.2 L U Random Total Protein Ur Random Sodium Ur Random Potassium Ur Random Chloride Urine Creatinine Protein/Creatinin Ratio 05/09/18 05/10/18 05/10/18 21:58 05:53 06:00 WBC 8.9 D RBC 4.59 Hgb 12.9 Hct 38.3 MCV 83.5 MCH 28.1 MCHC 33.6 RDW 13.9 Plt Count 245 MPV 9.4 Absolute Neuts (auto) 6.2 Neutrophils % 69.4 Lymphocytes % 23.9 D Monocytes % 5.2 Eosinophils % 0.9 D Basophils % 0.6 Nucleated RBC % 0 Sodium Potassium Chloride Carbon Dioxide Anion Gap BUN Creatinine Creat Clearance w eGFR POC Glucometer [phone] Random Glucose Calcium Phosphorus Magnesium Total Bilirubin AST ALT Alkaline Phosphatase Troponin I Total Protein Albumin U Random Total Protein Ur Random Sodium Ur Random Potassium Ur Random Chloride Urine Creatinine Protein/Creatinin Ratio Active Medications Generic Name Dose Route Start Last Admin Trade Name Freq PRN Reason Stop Dose Admin Amlodipine Besylate 10 mg 05/08/18 11:15 05/09/18 09:49 Norvasc - PO 10 mg DAILY [facility] Administration Chlorhexidine Gluconate 1 applic 05/08/18 22:00 05/09/18 22:02 Hibiclens For Decolonization - TP 1 applic HS [facility] Administration Hydrochlorothiazide 25 mg 05/09/18 14:30 05/09/18 14:47 Hctz - PO 25 mg DAILY [facility] Administration Nicardipine HCl 25 mg/ 250 mls @ 25 mls/hr 05/09/18 00:30 05/10/18 01:00 Dextrose IVPB 1 mg/hr TITR WY[facility] 10 mls/hr Administration Protocol 2.5 MG/HR Insulin Aspart 1 vial 05/08/18 16:00 05/10/18 06:37 Novolog Vial Sliding Scale - SQ 6 units Q4HWA [facility] Administration Protocol Insulin Detemir 10 units 05/10/18 07:00 05/10/18 06:37 Levemir Vial SQ 10 units AM [facility] Administration Insulin Detemir 5 units 05/09/18 22:00 05/09/18 22:02 Levemir Vial SQ 5 units HS [facility] Administration Mupirocin 1 applic 05/08/18 22:00 05/09/18 22:03 Bactroban Ointment (For Decolonization) - NS 05/13/18 21:59 1 applic BID [facility] Administration Potassium Chloride 40 meq 05/09/18 11:40 05/09/18 22:02 K-Dur - PO 05/10/18 10:01 40 meq BID [facility] Administration Valsartan 320 mg 05/09/18 14:30 05/09/18 14:47 Diovan - PO 320 mg DAILY [facility] Administration ASSESSMENT/PLAN: 1) Hypertensive Emergency resulting in encephalopathy --AMS most likely due to this factor alone --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 Unchanged from previous with diastolic LV dysfunction and concentric LV hypertrophy 2) Poorly controlled DM --Continue ISS --BGM ACHS -- Start Levemir 10 U HS and 10 AM for long-term coverage due to persistently high glucose on ISS --A1C 13% noted this admission --No elevated anion gap today 3) Elevated troponin --Likely combination of demand from HTN event and diminished clearing effect from kidney dysfunction early on 4) LAKSHMI vs. LAKSHMI on CKD? --Unknown baseline --Likely underperfusion due to HTN and intrinsic damage from uncontrolled DM --Resolving with fluids and controlled BP --Nephrology on board 5) Headache, Frontal --Tylenol given --If tylenol does not resolve headache likely will have to investigate further reasons due to his HTN emergency FEN: Fluids: None indicated currently Electrolyte abnormalities: Hypokalemia (Kdur) Nutrition: Low sodium diet PPX: DVT - SCDs while HTN emergency resolving Dispo: Can transfer out of ICU once off Cardene gtt Case discussed with Dr. Santosh Vaca, DO - IM PGY-1 Visit type - Emergency Visit Emergency Visit: No - New Patient This patient is new to me today: No - Critical Care Critical Care patient: No
[2018-05-10 06:49] LABS: ALBUMIN 2.8 g/dl (3.4-5.0); ALK PHOS 53 U/L (45-117); ANION GAP 8 (8-16); BLOOD UREA NITROGEN 26 mg/dL (7-18); CALCIUM 8.6 mg/dL (8.5-10.1); CO2 27 mmol/L (21-32); CREATININE 1.7 mg/dL (0.7-1.3); GLUCOSE,RANDOM 279 mg/dL (74-106); SGOT/AST 15 U/L (15-37); SGPT/ALT 25 U/L (12-78)
[2018-05-10] MEDS ORDERED: INSULIN (LEVEMIR) 100 UNITS/ML UNITS SQ SCH (07:31)
[2018-05-10] MEDS ORDERED: ACETAMINOPHEN 325 MG TABLET (FP) PO ONE (09:00)
[2018-05-10] MEDS: VALSARTAN 160 MG TABLET (UD) PO SCH (09:17)
[2018-05-10] MEDS: amLODIPine BESYLATE 10 MG TABLET (FP) PO SCH (09:18)
[2018-05-10] MEDS: HYDROCHLOROTHIAZIDE 25 MG TABLET (FP) PO SCH (09:18)
[2018-05-10] MEDS: POTASSIUM CHLORIDE TABS 20 MEQ TABLET.ER (FP) PO SCH (09:18)
[2018-05-10] MEDS: POLYETHYLENE GLYCOL 3350 119 GM BTL PO SCH ×2 (09:27→21:17)
[2018-05-10] MEDS: MUPIROCIN 2% TOPICAL OINTMENT FOR DECOLONIZATION NS SCH ×2 (09:30→21:18)
[2018-05-10] MEDS ORDERED: POTASSIUM CHLORIDE TABS 10 MEQ TABLET.ER (FP) PO ONE (09:30)
[2018-05-10] MEDS ORDERED: HYDROCHLOROTHIAZIDE 25 MG TABLET (FP) PO SCH (10:00)
[2018-05-10] MEDS ORDERED: VALSARTAN 160 MG TABLET (UD) PO SCH (10:00)
--- NOTE | 2018-05-10 12:15 | PN ---
Teaching Attending Note Name of Resident: Ramiro Gallagher ATTENDING PHYSICIAN STATEMENT I saw and evaluated the patient. I reviewed the resident's note and discussed the case with the resident. I agree with the resident's findings and plan as documented. SUBJECTIVE: Pt seen and examined in the ICU. Placed back on cardene gtt this AM. Denies shortness of breath or chest pain. No headache, still slight confusion. OBJECTIVE: Vital Signs Period Temp Pulse Resp BP Sys/Dasilva Pulse Ox Last 24 Hr 98 F-99.1 F 72-89 16-18 115-175/66-104 98-99 Intake & Output 05/07/18 05/08/18 05/09/18 05/10/18 23:59 23:59 23:59 23:59 Intake Total 2480 1225 100 Output Total 2800 2700 500 Balance -320 -1475 -400 Weight 90.5 kg 92.334 kg Gen: NAD at rest Heart: RRR Lung: decreased breath sounds at the bases Abd: soft, nontender Ext: no edema CBC, BMP 05/10/18 06:00 05/10/18 06:00 Active Medications Amlodipine Besylate (Norvasc -) 10 mg PO DAILY [facility] Last Admin: 05/10/18 09:18 Dose: 10 mg Chlorhexidine Gluconate (Hibiclens For Decolonization -) 1 applic TP HS [facility] Last Admin: 05/09/18 22:02 Dose: 1 applic Docusate Sodium (Colace -) 300 mg PO HS [facility] Hydrochlorothiazide (Hctz -) 25 mg PO DAILY [facility] Last Admin: 05/10/18 09:18 Dose: 25 mg Nicardipine HCl 25 mg/ (Dextrose) 250 mls @ 25 mls/hr IVPB TITR [facility]; Protocol Last Admin: 05/10/18 12:10 Dose: 1 mg/hr, 10 mls/hr Insulin Aspart (Novolog Vial Sliding Scale -) 1 vial SQ Q4HWA [facility]; Protocol Last Admin: 05/10/18 09:36 Dose: 8 units Insulin Detemir (Levemir Vial) 10 units SQ AM [facility] Last Admin: 05/10/18 06:37 Dose: 10 units Insulin Detemir (Levemir Vial) 10 units SQ HS [facility] Metoprolol Tartrate (Lopressor -) 200 mg PO BID [facility] Mupirocin (Bactroban Ointment (For Decolonization) -) 1 applic NS BID [facility] Stop: 05/13/18 21:59 Last Admin: 05/10/18 09:30 Dose: Not Given Polyethylene Glycol (Miralax (For Daily Use) -) 17 gm PO BID [facility] Last Admin: 05/10/18 09:27 Dose: 17 grams Valsartan (Diovan -) 320 mg PO DAILY [facility] Last Admin: 05/10/18 09:17 Dose: 320 mg ASSESSMENT AND PLAN: Altered Mental Status improving Hypertensive Urgency r/o PRES HTN DM CKD Lactic Acidosis - resume home BP meds - titrate off cardene gtt - consider MRI brain - PO as tolerated - replete lytes - f/u CSF studies - DVT prophylaxis - ICU monitoring while on cardene gtt critical care time spent in reviewing chart, evaluating patient and formulating plan 35 min
[2018-05-10] MEDS: METOPROLOL TARTRATE 50 MG TABLET (FP) PO SCH ×2 (13:13→21:17)
--- NOTE | 2018-05-10 14:11 | PN ---
Progress Note (short form) - Note Progress Note: 57 year old male history fo DM, HTN ( Non compliant with Medication. He came to hospital for acute confusion. His BP was in 220s and Blood sugar wa s500s. There is no fever, or head trauma or drug use. Patient has ct head was unremarkable, He was suspected to have meningitis, and spinal tap was normal. his abx were discontinued he has been improving alot. since admission . His bp is still high and he is on ditiazem drip Neurological Examination BP 223/114 on admission No neck stiffness Alert and oriented x 3 eomi, pupils reactive, no face asymmetry moving all extremity planter is bilateral withdrawal ct head unremarkable csf was benign mri of brain was uremarkable Assesmsent - Acute confusional state ,secondary to hypertensive encephalopathy. Clinically has improved and mri of brain is unremarkable Plan-continue bp treatment and supportive care - Feel free to call me if any question. - Thanking you so much Joby Lyon MD
[2018-05-10 14:48] VITALS: BMI 33.1
--- NOTE | 2018-05-10 15:00 | EKG ---
Test Reason : Blood Pressure : / mmHG Vent. Rate : 080 BPM Atrial Rate : 080 BPM P-R Int : 182 ms QRS Dur : 104 ms QT Int : 394 ms P-R-T Axes : -09 025 166 degrees QTc Int : 454 ms SINUS RHYTHM WITH SINUS ARRHYTHMIA WITH OCCASIONAL PREMATURE VENTRICULAR COMPLEXES T WAVE ABNORMALITY, CONSIDER LATERAL ISCHEMIA ABNORMAL ECG WHEN COMPARED WITH ECG OF 08-MAY-2018 05:18, ST ELEVATION NOW PRESENT IN ANTERIOR LEADS NONSPECIFIC T WAVE ABNORMALITY NOW EVIDENT IN INFERIOR LEADS T WAVE INVERSION MORE EVIDENT IN LATERAL LEADS Confirmed by MD CARMEN, OLINDA ([id number]) on 05/10/2018 3:00:11 PM Referred By: Confirmed By:OLINDA MORALES MD
--- NOTE | 2018-05-10 15:15 | PN ---
Progress Note, Physician History of Present Illness: Pt seen and examined at bedside. He is awake and alert. - Current Medication List Current Medications: Active Medications Amlodipine Besylate (Norvasc -) 10 mg PO DAILY REPLACED BY [facility] Last Admin: 05/10/18 09:18 Dose: 10 mg Chlorhexidine Gluconate (Hibiclens For Decolonization -) 1 applic TP HS REPLACED BY [facility] Last Admin: 05/09/18 22:02 Dose: 1 applic Docusate Sodium (Colace -) 300 mg PO HS [facility] Hydrochlorothiazide (Hctz -) 25 mg PO DAILY REPLACED BY [facility] Last Admin: 05/10/18 09:18 Dose: 25 mg Nicardipine HCl 25 mg/ (Dextrose) 250 mls @ 25 mls/hr IVPB TITR REPLACED BY [facility]; Protocol Last Admin: 05/10/18 12:10 Dose: 1 mg/hr, 10 mls/hr Insulin Aspart (Novolog Vial Sliding Scale -) 1 vial SQ Q4HWA REPLACED BY [facility]; Protocol Last Admin: 05/10/18 13:28 Dose: 8 units Insulin Detemir (Levemir Vial) 10 units SQ AM REPLACED BY [facility] Last Admin: 05/10/18 06:37 Dose: 10 units Insulin Detemir (Levemir Vial) 10 units SQ HS REPLACED BY [facility] Metoprolol Tartrate (Lopressor -) 200 mg PO BID REPLACED BY [facility] Last Admin: 05/10/18 13:13 Dose: 200 mg Mupirocin (Bactroban Ointment (For Decolonization) -) 1 applic NS BID REPLACED BY [facility] Stop: 05/13/18 21:59 Last Admin: 05/10/18 09:30 Dose: Not Given Polyethylene Glycol (Miralax (For Daily Use) -) 17 gm PO BID REPLACED BY [facility] Last Admin: 05/10/18 09:27 Dose: 17 grams Valsartan (Diovan -) 320 mg PO DAILY REPLACED BY [facility] Last Admin: 05/10/18 09:17 Dose: 320 mg - Objective Vital Signs: Vital Signs Temperature 98.4 F 05/10/18 12:09 Pulse Rate 72 05/10/18 14:30 Respiratory Rate 18 05/10/18 14:30 Blood Pressure 157/94 05/10/18 15:03 O2 Sat by Pulse Oximetry (%) 98 05/10/18 08:00 Constitutional: Yes: Calm Eyes: Yes: Conjunctiva Clear HENT: Yes: Atraumatic Neck: Yes: Supple Cardiovascular: Yes: S1, S2 Respiratory: Yes: CTA Bilaterally Gastrointestinal: Yes: Soft Genitourinary: Yes: WNL Musculoskeletal: Yes: WNL Edema: No Neurological: Yes: Oriented Psychiatric: Yes: Oriented Labs: CBC, BMP 05/10/18 06:00 05/10/18 06:00 INR, PTT INR 0.97 (0.82-1.09) 05/08/18 05:30 Problem List - Problems (1) CKD (chronic kidney disease) Code(s): N18.9 - CHRONIC KIDNEY DISEASE, UNSPECIFIED (2) Altered mental status Code(s): R41.82 - ALTERED MENTAL STATUS, UNSPECIFIED Qualifiers: Altered mental status type: unspecified Qualified Code(s): R41.82 - Altered mental status, unspecified (3) Encephalopathy Code(s): G93.40 - ENCEPHALOPATHY, UNSPECIFIED (4) Hyperglycemia Code(s): R73.9 - HYPERGLYCEMIA, UNSPECIFIED (5) Hypertension Code(s): I10 - ESSENTIAL (PRIMARY) HYPERTENSION Qualifiers: Hypertension type: unspecified Qualified Code(s): I10 - Essential (primary ) hypertension (6) Hypertensive emergency Code(s): I16.1 - HYPERTENSIVE EMERGENCY Assessment/Plan Current Medications Generic Name Dose Route Start Last Admin Trade Name Freq PRN Reason Stop Dose Admin Amlodipine Besylate 10 mg 05/08/18 11:15 05/10/18 09:18 Norvasc - PO 10 mg DAILY [facility] Administration Chlorhexidine Gluconate 1 applic 05/08/18 22:00 05/09/18 22:02 Hibiclens For Decolonization - TP 1 applic HS [facility] Administration Docusate Sodium 300 mg 05/10/18 22:00 Colace - PO HS [facility] Hydrochlorothiazide 25 mg 05/09/18 14:30 05/10/18 09:18 Hctz - PO 25 mg DAILY [facility] Administration Nicardipine HCl 25 mg/ 250 mls @ 25 mls/hr 05/09/18 00:30 05/10/18 12:10 Dextrose IVPB 1 mg/hr TITR [facility] 10 mls/hr Administration Protocol 2.5 MG/HR Insulin Aspart 1 vial 05/08/18 16:00 05/10/18 13:28 Novolog Vial Sliding Scale - SQ 8 units Q4HWA [facility] Administration Protocol Insulin Detemir 10 units 05/10/18 07:00 05/10/18 06:37 Levemir Vial SQ 10 units AM [facility] Administration Insulin Detemir 10 units 05/10/18 07:31 Levemir Vial SQ HS REPLACED BY [facility] Metoprolol Tartrate 200 mg 05/10/18 11:15 05/10/18 13:13 Lopressor - PO 200 mg BID [facility] Administration Mupirocin 1 applic 05/08/18 22:00 05/10/18 09:30 Bactroban Ointment (For Decolonization) - NS 05/13/18 21:59 Not Given BID REPLACED BY [facility] Polyethylene Glycol 17 gm 05/10/18 10:00 05/10/18 09:27 Miralax (For Daily Use) - PO 17 grams BID REPLACED BY [facility] Administration Valsartan 320 mg 05/09/18 14:30 05/10/18 09:17 Diovan - PO 320 mg DAILY [facility] Administration Laboratory Tests 05/09/18 05:30 NEO M-Husam Pending ALEKSEY Screen Pending c-ANCA Pending Myeloperoxidase Ab Pending Double Strand DNA Ab 1 Glomerular Base Memb Ab Pending Impression 1. CKD 2. proteinuria 3. DM - uncontrolled 4. HTN with urgency 5. change in mental status 6. hx of non compliance 7. hyperglycemia 8. lactic acidosis 9. hypokalemia Plan - cont to monitor renal function - cont po meds and titrate down IV - monitor BP - cardio eval - hypertensive emergency likely from non compliance - cont arb - check prt to tobacco baler ratio - follow csf studies - will follow Dr Zamora
--- NOTE | 2018-05-10 18:06 | PN ---
Teaching Attending Note Name of Resident: Sher Vaca ATTENDING PHYSICIAN STATEMENT I saw and evaluated the patient. I reviewed the resident's note and discussed the case with the resident. I agree with the resident's findings and plan as documented. SUBJECTIVE: OBJECTIVE: Vital Signs Temperature 98.4 F 05/10/18 12:09 Pulse Rate 75 05/10/18 16:00 Respiratory Rate 20 05/10/18 16:00 Blood Pressure 145/86 05/10/18 16:00 O2 Sat by Pulse Oximetry (%) 98 05/10/18 08:00 CBCD WBC 8.9 K/mm3 (4.0-10.0) D 05/10/18 06:00 RBC 4.59 M/mm3 (4.00-5.60) 05/10/18 06:00 Hgb 12.9 GM/dL (11.7-16.9) 05/10/18 06:00 Hct 38.3 % (35.4-49) 05/10/18 06:00 MCV 83.5 fl (80-96) 05/10/18 06:00 MCHC 33.6 g/dl (32.0-35.9) 05/10/18 06:00 RDW 13.9 % (11.9-15.9) 05/10/18 06:00 Plt Count 245 K/MM3 (134-434) 05/10/18 06:00 MPV 9.4 fl (7.5-11.1) 05/10/18 06:00 CMP Sodium 138 mmol/L (136-145) 05/10/18 06:00 Potassium 3.4 mmol/L (3.5-5.1) L 05/10/18 06:00 Chloride 103 mmol/L (98-107) 05/10/18 06:00 Carbon Dioxide 27 mmol/L (21-32) 05/10/18 06:00 Anion Gap 8 (8-16) 05/10/18 06:00 BUN 26 mg/dL (7-18) H 05/10/18 06:00 Creatinine 1.7 mg/dL (0.7-1.3) H 05/10/18 06:00 Creat Clearance w eGFR 41.60 (>60) 05/10/18 06:00 Random Glucose 279 mg/dL (74-106) H 05/10/18 06:00 Calcium 8.6 mg/dL (8.5-10.1) 05/10/18 06:00 Total Bilirubin 1.0 mg/dL (0.2-1.0) D 05/10/18 06:00 AST 15 U/L (15-37) D 05/10/18 06:00 ALT 25 U/L (12-78) 05/10/18 06:00 Alkaline Phosphatase 53 U/L (45-117) 05/10/18 06:00 Total Protein 7.0 g/dl (6.4-8.2) 05/10/18 06:00 Albumin 2.8 g/dl (3.4-5.0) L 05/10/18 06:00 CARDIAC ENZYMES Creatine Kinase 438 IU/L (39-308) H 05/08/18 19:03 Troponin I 0.07 ng/ml (0.00-0.05) H 05/09/18 05:30 Current Medications Generic Name Dose Route Start Last Admin Trade Name Freq PRN Reason Stop Dose Admin Amlodipine Besylate 10 mg 05/08/18 11:15 05/10/18 09:18 Norvasc - PO 10 mg DAILY [facility] Administration Chlorhexidine Gluconate 1 applic 05/08/18 22:00 05/09/18 22:02 Hibiclens For Decolonization - TP 1 applic HS [facility] Administration Docusate Sodium 300 mg 05/10/18 22:00 Colace - PO HS [facility] Hydrochlorothiazide 25 mg 05/09/18 14:30 05/10/18 09:18 Hctz - PO 25 mg DAILY [facility] Administration Nicardipine HCl 25 mg/ 250 mls @ 25 mls/hr 05/09/18 00:30 05/10/18 12:10 Dextrose IVPB 1 mg/hr TITR [facility] 10 mls/hr Administration Protocol 2.5 MG/HR Insulin Aspart 1 vial 05/08/18 16:00 05/10/18 17:54 Novolog Vial Sliding Scale - SQ 8 units Q4HWA [facility] Administration Protocol Insulin Detemir 10 units 05/10/18 07:00 05/10/18 06:37 Levemir Vial SQ 10 units AM [facility] Administration Insulin Detemir 10 units 05/10/18 07:31 Levemir Vial SQ HS [facility] Metoprolol Tartrate 200 mg 05/10/18 11:15 05/10/18 13:13 Lopressor - PO 200 mg BID [facility] Administration Mupirocin 1 applic 05/08/18 22:00 05/10/18 09:30 Bactroban Ointment (For Decolonization) - NS 05/13/18 21:59 Not Given BID [facility] Polyethylene Glycol 17 gm 05/10/18 10:00 05/10/18 09:27 Miralax (For Daily Use) - PO 17 grams BID [facility] Administration Valsartan 320 mg 05/09/18 14:30 05/10/18 09:17 Diovan - PO 320 mg DAILY [facility] Administration Home Medications Medication Instructions Recorded Valsartan [Diovan] 320 mg PO DAILY 08/19/12 Glipizide [Glipizide ER] 10 mg PO DAILY 12/11/15 Metoprolol Tartrate [Lopressor -] 200 mg PO BID 12/11/15 Ibuprofen [Motrin -] 600 mg PO TID PRN #21 tablet 10/09/17 Amlodipine Besylate [Norvasc -] 10 mg PO DAILY 12/19/17 Cyclobenzaprine HCl [Flexeril -] 5 mg PO BID 12/19/17 Hydrochlorothiazide [Hctz -] 25 mg PO DAILY 12/19/17 ASSESSMENT AND PLAN: Patient is a 57yo male presented with hypertensive emergency with blood pressure of 223/114, with change of mental status. # Acute change of mental status improved due to having hypertensive encephalopathy , will start the patient on his home meds.and wean him off the cardine drip , continues to be in ICU. Neuro consult discussed with and appreciated. Acute confusional state ,secondary to hypertensive encephalopathy. Clinically has improved and mri of brain is unremarkable # Hypertensive emergency on cardine drip titrate to SBP of 160-180 , neuro consult and restart his home meds. # Acute Hyperglycemia sliding scale with coverage with insulin, bs check every 4 hrs. Levemir 5u hs and start him on 10U levemir in am # acute over chronic kidney failure , will get us f kidney and check lytes, for consult and appreciated/ DVT Px: SCds for now, since patient has elevated BP.
[2018-05-10] MEDS: CHLORHEXIDINE GLUCONATE 4% CLEANSER FOR DECOLONIZATION TP SCH (21:18)
[2018-05-10] MEDS ORDERED: PT OWN MED DRAWER 7, Y5N ONE (21:27)
[2018-05-10] MEDS ORDERED: DOCUSATE SODIUM 100 MG CAPSULE (FP) PO SCH (22:00)
[2018-05-11 00:09] LABS: HBSAG SCREEN Negative (Negative); HEP A AB, IGM Negative (Negative); HEP B CORE AB, TOT Positive (Negative)
[2018-05-11] MEDS: NICARDIPINE 25 MG in DEXTROSE 5%-WATER - 240 ML IVPB SCH (00:30)
[2018-05-11] MEDS: INSULIN SLIDING SCALE (NOVOLOG) 1 VIAL SQ SCH ×3 (06:08→16:28)
[2018-05-11] MEDS: INSULIN (LEVEMIR) 100 UNITS/ML UNITS SQ SCH (06:11)
[2018-05-11 06:14] LABS: BASO % 1.1 % (0-2.0); EOS % 1.6 % (0-4.5); HEMOGLOBIN 13.8 GM/dL (11.7-16.9); LYMPH % 26.5 % (8-40); MCHC 33.6 g/dl (32.0-35.9); MEAN CELL VOLUME 83.3 fl (80-96); MONO % 6.2 % (3.8-10.2); NEUT % 64.6 % (42.8-82.8); PLATELET COUNT 261 K/MM3 (134-434); RBC 4.92 M/mm3 (4.00-5.60); WHITE BLOOD COUNT 10.6 K/mm3 (4.0-10.0)
[2018-05-11 06:48] LABS: CHLORIDE 101 mmol/L (98-107); POTASSIUM 3.2 mmol/L (3.5-5.1); SODIUM 139 mmol/L (136-145)
[2018-05-11 06:55] LABS: ALK PHOS 57 U/L (45-117); ANION GAP 10 (8-16); BLOOD UREA NITROGEN 18 mg/dL (7-18); CALCIUM 8.7 mg/dL (8.5-10.1); CO2 28 mmol/L (21-32); CREATININE 1.6 mg/dL (0.7-1.3); GLUCOSE,RANDOM 155 mg/dL (74-106); MAGNESIUM 1.9 mg/dL (1.8-2.4); PHOSPHOROUS 3.5 mg/dL (2.5-4.9); SGOT/AST 14 U/L (15-37); SGPT/ALT 25 U/L (12-78); TOT PROT 7.4 g/dl (6.4-8.2)
[2018-05-11] MEDS ORDERED: NIFEdipine 10 MG CAPSULE (FP) PO SCH (07:00)
[2018-05-11] MEDS ORDERED: POTASSIUM CHLORIDE TABS 20 MEQ TABLET.ER (FP) PO ONE (08:30)
[2018-05-11] MEDS ORDERED: PT OWN MED DRAWER 7, Y5N ONE (09:05)
[2018-05-11] MEDS: MUPIROCIN 2% TOPICAL OINTMENT FOR DECOLONIZATION NS SCH ×2 (09:06→21:27)
[2018-05-11] MEDS: VALSARTAN 160 MG TABLET (UD) PO SCH (09:06)
[2018-05-11] MEDS: HYDROCHLOROTHIAZIDE 25 MG TABLET (FP) PO SCH (09:07)
[2018-05-11] MEDS: METOPROLOL TARTRATE 50 MG TABLET (FP) PO SCH ×2 (09:07→21:26)
[2018-05-11] MEDS: POLYETHYLENE GLYCOL 3350 119 GM BTL PO SCH ×3 (09:12→21:35)
--- NOTE | 2018-05-11 09:56 | CON.CARD ---
Consult Consult Specialty:: Cardiology Referred by:: Hospitalist Medicine Reason for Consultation:: Hypertensive cardiomyopathy - History of Present Illness Chief Complaint: Altered mental status, HTN emergency History of Present Illness: 57 M, DM and HTN non-compliant with meds admitted via the ER due to acute mental status change and elevated B, brain imaging and CSF unremarkable, working diagnosis is hypertensive encephelopathy. Transitioned from Cardene gtt to oral meds with improvement of sensorium. He denies symptoms of chest pain, dyspnea, near or true syncope, palpitations, orthopnea, PND, LE edema. - History Source History Provided By: Patient Limitations to Obtaining History: No Limitations - Past Medical History Cardio/Vascular: Yes: HTN Renal/: Yes: Renal Inusuff Endocrine: Yes: Diabetes Mellitus - Alcohol/Substance Use Hx Alcohol Use: No - Smoking History Smoking history: Never smoked Have you smoked in the past 12 months: No Aproximately how many cigarettes per day: 0 Home Medications - Allergies Allergies/Adverse Reactions: Allergies Allergy/AdvReac Type Severity Reaction Status Date / Time No Known Allergies Allergy Verified 05/08/18 05:30 - Home Medications Home Medications: Ambulatory Orders Valsartan [Diovan] 320 mg PO DAILY 08/19/12 Glipizide [Glipizide ER] 10 mg PO DAILY 12/11/15 Metoprolol Tartrate [Lopressor -] 200 mg PO BID 12/11/15 Ibuprofen [Motrin -] 600 mg PO TID PRN #21 tablet 10/09/17 Amlodipine Besylate [Norvasc -] 10 mg PO DAILY 12/19/17 Cyclobenzaprine HCl [Flexeril -] 5 mg PO BID 12/19/17 Hydrochlorothiazide [Hctz -] 25 mg PO DAILY 12/19/17 Review of Systems - Review of Systems Neurological: reports: Confusion Vital Signs: Vital Signs Temperature 99.5 F 05/11/18 06:00 Pulse Rate 72 05/11/18 08:01 Respiratory Rate 18 05/11/18 08:01 Blood Pressure 149/83 05/11/18 08:01 O2 Sat by Pulse Oximetry (%) 98 05/10/18 20:13 Constitutional: Yes: No Distress, Calm Neck: Yes: Supple Respiratory: Yes: Regular, CTA Bilaterally Gastrointestinal: Yes: Normal Bowel Sounds, Soft Cardiovascular: Yes: Regular Rate and Rhythm JVD: No Carotid Bruit: No Heart Sounds: Yes: S1, S2 Edema: No - Other Data Labs, Other Data: CBC, BMP 05/11/18 05:55 05/11/18 05:55 INR, PTT INR 0.97 (0.82-1.09) 05/08/18 05:30 Imaging - Results Chest X-ray: Report Reviewed (NAD) MRI: Report Reviewed (Brain MRI: SVID, moderate atrophy) Problem List - Problems (1) Jhipy-ni-egasadd kidney injury Code(s): N17.9 - ACUTE KIDNEY FAILURE, UNSPECIFIED; N18.9 - CHRONIC KIDNEY DISEASE, UNSPECIFIED (2) Altered mental status Code(s): R41.82 - ALTERED MENTAL STATUS, UNSPECIFIED Qualifiers: Altered mental status type: unspecified Qualified Code(s): R41.82 - Altered mental status, unspecified (3) Encephalopathy Code(s): G93.40 - ENCEPHALOPATHY, UNSPECIFIED (4) Hypertensive emergency Code(s): I16.1 - HYPERTENSIVE EMERGENCY (5) Noncompliance w/medication treatment due to intermit use of medication Code(s): Z91.14 - PATIENT'S OTHER NONCOMPLIANCE WITH MEDICATION REGIMEN Assessment/Plan May 09, 2018 Echo: Mod cLVH, normal LV size and fxn, mild TR, tr AR, MR 1. Altered Mental Status referable to hypertensive encephelopathy resolved 2. HTN urgency 3. Poorly controlled DM 4. Acute on CKD with proteinuria improving 5. Lactic Acidosis P:1. Continue Lopressor, Diovan-HCT, Norvasc with uptitration as hemodynamics tolerate 2. Emphasized importance of diet and medication compliance, avoid NSAIDs 3. F/u CSF studies 4. Thank you for consultative opportunity
[2018-05-11] MEDS ORDERED: POTASSIUM CHLORIDE TABS 20 MEQ TABLET.ER (FP) PO SCH ×2 (10:00→22:00)
[2018-05-11] MEDS ORDERED: NIFEdipine E.R. 30 MG TABLET (FP) PO SCH ×2 (10:00)
[2018-05-11 10:13] LABS: ANTIGLOMERULAR BASEMENT MEN.AB 4 units (0-20)
[2018-05-11] MEDS ORDERED: INSULIN (LEVEMIR) 100 UNITS/ML UNITS SQ ONE (10:18)
--- NOTE | 2018-05-11 11:08 | PN ---
Teaching Attending Note Name of Resident: Ramiro Gallagher ATTENDING PHYSICIAN STATEMENT I saw and evaluated the patient. I reviewed the resident's note and discussed the case with the resident. I agree with the resident's findings and plan as documented. SUBJECTIVE: Pt seen and examined in the ICU. Off cardene gtt. Some dizziness. No shortness of breath or chest pain. No headache or nausea. OBJECTIVE: Vital Signs Period Temp Pulse Resp BP Sys/Dasilva Pulse Ox Last 24 Hr 98.4 F-99.7 F 66-90 18-141 140-175/75-106 98 Intake & Output 05/08/18 05/09/18 05/10/18 05/11/18 23:59 23:59 23:59 23:59 Intake Total 2480 1225 720 500 Output Total 2800 2700 1900 500 Balance -320 -1475 -1180 0 Weight 90.5 kg 90.265 kg 90.537 kg Gen: NAD at rest Heart: RRR Lung: decreased breath sounds at the bases Abd: soft, nontender Ext: no edema CBC, BMP 05/11/18 05:55 05/11/18 05:55 Active Medications Chlorhexidine Gluconate (Hibiclens For Decolonization -) 1 applic TP HS [facility] Last Admin: 05/10/18 21:18 Dose: 1 applic Docusate Sodium (Colace -) 300 mg PO HS [facility] Last Admin: 05/10/18 21:16 Dose: 300 mg Hydrochlorothiazide (Hctz -) 25 mg PO DAILY [facility] Last Admin: 05/11/18 09:07 Dose: 25 mg Insulin Aspart (Novolog Vial Sliding Scale -) 1 vial SQ Q4HWA [facility]; Protocol Last Admin: 05/11/18 10:20 Dose: 8 units Insulin Detemir (Levemir Vial) 10 units SQ AM [facility] Last Admin: 05/11/18 06:11 Dose: 10 units Insulin Detemir (Levemir Vial) 10 units SQ HS [facility] Last Admin: 05/10/18 21:20 Dose: 10 units Metoprolol Tartrate (Lopressor -) 200 mg PO BID [facility] Last Admin: 05/11/18 09:07 Dose: 200 mg Mupirocin (Bactroban Ointment (For Decolonization) -) 1 applic NS BID [facility] Stop: 05/13/18 21:59 Last Admin: 05/11/18 09:06 Dose: 1 applic Nifedipine (Procardia Xl -) 30 mg PO DAILY [facility] Last Admin: 05/11/18 09:08 Dose: 30 mg Polyethylene Glycol (Miralax (For Daily Use) -) 17 gm PO BID [facility] Last Admin: 05/11/18 09:12 Dose: 17 grams Potassium Chloride (K-Dur -) 40 meq PO BID [facility] Last Admin: 05/11/18 09:14 Dose: 40 meq Valsartan (Diovan -) 320 mg PO DAILY [facility] Last Admin: 05/11/18 09:06 Dose: 320 mg ASSESSMENT AND PLAN: Altered Mental Status improving Hypertensive Urgency/Encephalopathy HTN DM CKD Lactic Acidosis resolved - titrate PO BP meds - off cardene gtt - PO as tolerated - replete lytes - DVT prophylaxis - can monitor on floor
--- NOTE | 2018-05-11 11:25 | PN ---
Physical Exam: SUBJECTIVE: Patient seen and examined at bed side in ICU denies headache or blurry vison, denies any chest pain or SOB , off Cardene GTT , started on Procardia ER 30 daily transfer to floor OBJECTIVE: Vital Signs Period Temp Pulse Resp BP Sys/Dasilva Pulse Ox Last 24 Hr 98.4 F-99.7 F 66-90 18-141 140-175/75-106 98 GENERAL: AAOx3 , in NAD HEAD: NC/AT EYES: PERRL, EOMI, sclera anicteric, conjunctiva clear. ENT: Ears normal, nares patent, oropharynx clear without exudates, moist mucous membranes. NECK: full range of motion, supple. LUNGS: CTA B/L , no wheezes, no crackles, no accessory muscle use. HEART: Regular rate and rhythm, S1, S2 without murmur, rub or gallop. ABDOMEN: Soft, ND/NT, normoactive bowel sounds, no guarding, no rebound, EXTREMITIES: 2+ pulses, warm, well-perfused, no edema. NEUROLOGICAL: Cranial nerves II through XII grossly intact. Normal speech, gait not observed. PSYCH: Normal mood, normal affect. SKIN: Warm, dry, normal turgor, Laboratory Results - last 24 hr 05/08/18 05/08/18 05/09/18 07:53 22:41 05:30 WBC RBC Hgb Hct MCV MCH MCHC RDW Plt Count MPV Absolute Neuts (auto) Neutrophils % Lymphocytes % Monocytes % Eosinophils % Basophils % Nucleated RBC % Sodium Potassium Chloride Carbon Dioxide Anion Gap BUN Creatinine Creat Clearance w eGFR POC Glucometer [phone] Random Glucose Calcium Phosphorus Magnesium Total Bilirubin AST ALT Alkaline Phosphatase Total Protein Albumin Specimen Type CSF Lyme Disease DNA Negative ALEKSEY Screen Positive H ALEKSEY Homogeneous Pattern TNP LAEKSEY Nucleolar Pattern TNP ALEKSEY Spindle Amanda Pattern TNP ALEKSEY Midbody Pattern 1:80 ALEKSEY Centriole Pattern TNP ALEKSEY Nuclear Dot Pattern TNP ALEKSEY PCNA Pattern TNP ALEKSEY Nuclear Membr Pat TNP ALEKSEY Speckled Pattern TNP ALEKSEY Centromere Pattern TNP Double Strand DNA Ab 1 Glomerular Base Memb Ab 4 Hep A IgM Ab Confirm Negative Hepatitis A Ab Total Positive H Hep Bs Antigen Negative Hep Bs Antibody Non reactive Hep B Core Total Ab Positive H HSV I DNA Quant (PCR) Negative HSV II DNA Quant (PCR) Negative H.influenzae Type B Ag Negative N. meningitidis Antigen Negative Group B Strep Antigen Negative S. pneumoniae Antigen Negative 05/09/18 05/09/18 05/09/18 06:13 09:58 17:24 WBC RBC Hgb Hct MCV MCH MCHC RDW Plt Count MPV Absolute Neuts (auto) Neutrophils % Lymphocytes % Monocytes % Eosinophils % Basophils % Nucleated RBC % Sodium Potassium Chloride Carbon Dioxide Anion Gap BUN Creatinine Creat Clearance w eGFR POC Glucometer [phone] 54.53552 Random Glucose Calcium Phosphorus Magnesium Total Bilirubin AST ALT Alkaline Phosphatase Total Protein Albumin Specimen Type CSF Lyme Disease DNA ALEKSEY Screen ALEKSEY Homogeneous Pattern ALEKSEY Nucleolar Pattern ALEKSEY Spindle Amanda Pattern ALEKSEY Midbody Pattern ALEKSEY Centriole Pattern ALEKSEY Nuclear Dot Pattern ALEKSEY PCNA Pattern ALEKSEY Nuclear Membr Pat ALEKSEY Speckled Pattern ALEKSEY Centromere Pattern Double Strand DNA Ab Glomerular Base Memb Ab Hep A IgM Ab Confirm Hepatitis A Ab Total Hep Bs Antigen Hep Bs Antibody Hep B Core Total Ab HSV I DNA Quant (PCR) HSV II DNA Quant (PCR) H.influenzae Type B Ag N. meningitidis Antigen Group B Strep Antigen S. pneumoniae Antigen 05/09/18 05/10/18 05/10/18 17:27 13:26 17:19 WBC RBC Hgb Hct MCV MCH MCHC RDW Plt Count MPV Absolute Neuts (auto) Neutrophils % Lymphocytes % Monocytes % Eosinophils % Basophils % Nucleated RBC % Sodium Potassium Chloride Carbon Dioxide Anion Gap BUN Creatinine Creat Clearance w eGFR POC Glucometer [phone] [phone] Random Glucose Calcium Phosphorus Magnesium Total Bilirubin AST ALT Alkaline Phosphatase Total Protein Albumin Specimen Type CSF Lyme Disease DNA ALEKSEY Screen ALEKSEY Homogeneous Pattern ALEKSEY Nucleolar Pattern ALEKSEY Spindle Amanda Pattern ALEKSEY Midbody Pattern ALEKSEY Centriole Pattern ALEKSEY Nuclear Dot Pattern ALEKSEY PCNA Pattern ALEKSEY Nuclear Membr Pat ALEKSEY Speckled Pattern ALEKSEY Centromere Pattern Double Strand DNA Ab Glomerular Base Memb Ab Hep A IgM Ab Confirm Hepatitis A Ab Total Hep Bs Antigen Hep Bs Antibody Hep B Core Total Ab HSV I DNA Quant (PCR) HSV II DNA Quant (PCR) H.influenzae Type B Ag N. meningitidis Antigen Group B Strep Antigen S. pneumoniae Antigen 05/10/18 05/11/18 05/11/18 21:07 05:45 05:55 WBC 10.6 H RBC 4.92 Hgb 13.8 Hct 41.0 MCV 83.3 MCH 28.0 MCHC 33.6 RDW 14.0 Plt Count 261 MPV 9.0 Absolute Neuts (auto) 6.8 Neutrophils % 64.6 Lymphocytes % 26.5 Monocytes % 6.2 Eosinophils % 1.6 Basophils % 1.1 Nucleated RBC % 0 Sodium Potassium Chloride Carbon Dioxide Anion Gap BUN Creatinine Creat Clearance w eGFR POC Glucometer [phone] Random Glucose Calcium Phosphorus Magnesium Total Bilirubin AST ALT Alkaline Phosphatase Total Protein Albumin Specimen Type CSF Lyme Disease DNA ALEKSEY Screen ALEKSEY Homogeneous Pattern ALEKSEY Nucleolar Pattern ALEKSEY Spindle Amanda Pattern ALEKSEY Midbody Pattern ALEKSEY Centriole Pattern ALEKSEY Nuclear Dot Pattern ALEKSEY PCNA Pattern ALEKSEY Nuclear Membr Pat ALEKSEY Speckled Pattern ALEKSEY Centromere Pattern Double Strand DNA Ab Glomerular Base Memb Ab Hep A IgM Ab Confirm Hepatitis A Ab Total Hep Bs Antigen Hep Bs Antibody Hep B Core Total Ab HSV I DNA Quant (PCR) HSV II DNA Quant (PCR) H.influenzae Type B Ag N. meningitidis Antigen Group B Strep Antigen S. pneumoniae Antigen 05/11/18 05/11/18 05:55 10:18 WBC RBC Hgb Hct MCV MCH MCHC RDW Plt Count MPV Absolute Neuts (auto) Neutrophils % Lymphocytes % Monocytes % Eosinophils % Basophils % Nucleated RBC % Sodium 139 Potassium 3.2 L Chloride 101 Carbon Dioxide 28 Anion Gap 10 BUN 18 D Creatinine 1.6 H Creat Clearance w eGFR 44.62 POC Glucometer [phone] Random Glucose 155 H D Calcium 8.7 Phosphorus 3.5 Magnesium 1.9 Total Bilirubin 1.0 AST 14 L ALT 25 Alkaline Phosphatase 57 Total Protein 7.4 Albumin 3.0 L Specimen Type CSF Lyme Disease DNA ALEKSEY Screen ALEKSEY Homogeneous Pattern ALEKSEY Nucleolar Pattern ALEKSEY Spindle Amanda Pattern ALEKSEY Midbody Pattern ALEKSEY Centriole Pattern ALEKSEY Nuclear Dot Pattern ALEKSEY PCNA Pattern ALEKSEY Nuclear Membr Pat ALEKSEY Speckled Pattern ALEKSEY Centromere Pattern Double Strand DNA Ab Glomerular Base Memb Ab Hep A IgM Ab Confirm Hepatitis A Ab Total Hep Bs Antigen Hep Bs Antibody Hep B Core Total Ab HSV I DNA Quant (PCR) HSV II DNA Quant (PCR) H.influenzae Type B Ag N. meningitidis Antigen Group B Strep Antigen S. pneumoniae Antigen Active Medications Generic Name Dose Route Start Last Admin Trade Name Freq PRN Reason Stop Dose Admin Docusate Sodium 300 mg 05/11/18 22:00 Colace - PO HS [facility] Hydrochlorothiazide 25 mg 05/12/18 10:00 Hctz - PO DAILY [facility] Insulin Aspart 1 vial 05/11/18 14:00 Novolog Vial Sliding Scale - SQ Q4HWA PENDING SALE TO [facility] Protocol Insulin Detemir 10 units 05/12/18 07:00 Levemir Vial SQ AM PENDING SALE TO [facility] Insulin Detemir 10 units 05/11/18 22:00 Levemir Vial SQ HS PENDING SALE TO [facility] Metoprolol Tartrate 200 mg 05/11/18 22:00 Lopressor - PO BID [facility] Mupirocin 1 applic 05/11/18 22:00 Bactroban Ointment (For Decolonization) - NS 05/13/18 21:59 BID [facility] Nifedipine 30 mg 05/12/18 10:00 Procardia Xl - PO DAILY [facility] Polyethylene Glycol 17 gm 05/11/18 22:00 Miralax (For Daily Use) - PO BID [facility] Potassium Chloride 40 meq 05/11/18 22:00 K-Dur - PO BID [facility] Valsartan 320 mg 05/12/18 10:00 Diovan - PO DAILY [facility] CBC, BMP 05/11/18 05:55 05/11/18 05:55 ASSESSMENT/PLAN: 57 yo M with pmhx of HTN and DM presented to ER with AMS admitted to ICU for acute hypertensive emergency with encephalopathy. Neuro: * hypertensive Encephalopathy, improved * AAOx3 , back to base line * CT head was negative, MRI negative * Neuro consulted Dr Lyon recommended continue supportive care * CSF analysis shows increased Protien and glucose Pulm: * No acute respiratory issues at this time] * supplemental O2 PRN CV: * Will restart home BP meds: , Metoprolol, and Valsartan, HCTZ * off Cardene drip , started procardia ER 30 daily * Dc Amlodipine * tetrate BP meds for better control GI: * tolerating low NA diet * start on colace and Miralax for constipation , Renal: LAKSHMI on CKD * BUN/Cr 26/1.7 ...18/1.6 * Will replete K (3.2 today ) * repeat BMP in AM * Lactic acidosis resolved # Endo DM uncontrolled * ISS * BGM * increase Levemir to 15 units HS #ID: * CSF not consistant with meningitis. * CSF cx negative for infection * ID consult appreciated. * urine cultures negative , blood cx negative #Despo: transfer to floor med-surg Visit type - Emergency Visit Emergency Visit: Yes ED Registration Date: 05/08/18 Care time: The patient presented to the Emergency Department on the above date and was hospitalized for further evaluation of their emergent condition. - New Patient This patient is new to me today: No - Critical Care Critical Care patient: Yes Total Critical Care Time (in minutes): 45 Critical Care Statement: The care of this patient involved high complexity decision making to prevent further life threatening deterioration of the patient 's condition and/or to evaluate & treat vital organ system(s) failure or risk of failure.
--- NOTE | 2018-05-11 13:01 | PN ---
Progress Note, Physician History of Present Illness: Pt seen and examined at bedside.He is awake and alert. - Current Medication List Current Medications: Active Medications Docusate Sodium (Colace -) 300 mg PO HS [facility] Hydrochlorothiazide (Hctz -) 25 mg PO DAILY [facility] Insulin Aspart (Novolog Vial Sliding Scale -) 1 vial SQ Q4HWA [facility]; Protocol Insulin Detemir (Levemir Vial) 10 units SQ AM [facility] Insulin Detemir (Levemir Vial) 10 units SQ HS [facility] Metoprolol Tartrate (Lopressor -) 200 mg PO BID [facility] Mupirocin (Bactroban Ointment (For Decolonization) -) 1 applic NS BID [facility] Stop: 05/13/18 21:59 Nifedipine (Procardia Xl -) 30 mg PO DAILY [facility] Polyethylene Glycol (Miralax (For Daily Use) -) 17 gm PO BID [facility] Potassium Chloride (K-Dur -) 40 meq PO BID [facility] Valsartan (Diovan -) 320 mg PO DAILY [facility] - Objective Vital Signs: Vital Signs Temperature 98.6 F 05/11/18 10:24 Pulse Rate 64 05/11/18 12:52 Respiratory Rate 17 05/11/18 12:52 Blood Pressure 162/92 05/11/18 12:52 O2 Sat by Pulse Oximetry (%) 98 05/10/18 20:13 Constitutional: Yes: Calm Eyes: Yes: Conjunctiva Clear HENT: Yes: Atraumatic Neck: Yes: Supple Cardiovascular: Yes: S1, S2 Respiratory: Yes: CTA Bilaterally Gastrointestinal: Yes: Normal Bowel Sounds, Soft Genitourinary: Yes: WNL Musculoskeletal: Yes: WNL Edema: No Integumentary: Yes: WNL Neurological: Yes: Oriented Psychiatric: Yes: Oriented Labs: CBC, BMP 05/11/18 05:55 05/11/18 05:55 INR, PTT INR 0.97 (0.82-1.09) 05/08/18 05:30 Problem List - Problems (1) CKD (chronic kidney disease) Code(s): N18.9 - CHRONIC KIDNEY DISEASE, UNSPECIFIED (2) Altered mental status Code(s): R41.82 - ALTERED MENTAL STATUS, UNSPECIFIED Qualifiers: Altered mental status type: unspecified Qualified Code(s): R41.82 - Altered mental status, unspecified (3) Encephalopathy Code(s): G93.40 - ENCEPHALOPATHY, UNSPECIFIED (4) Hyperglycemia Code(s): R73.9 - HYPERGLYCEMIA, UNSPECIFIED (5) Hypertension Code(s): I10 - ESSENTIAL (PRIMARY) HYPERTENSION Qualifiers: Hypertension type: unspecified Qualified Code(s): I10 - Essential (primary ) hypertension (6) Hypertensive emergency Code(s): I16.1 - HYPERTENSIVE EMERGENCY Assessment/Plan Current Medications Generic Name Dose Route Start Last Admin Trade Name Freq PRN Reason Stop Dose Admin Docusate Sodium 300 mg 05/11/18 22:00 Colace - PO HS [facility] Hydrochlorothiazide 25 mg 05/12/18 10:00 Hctz - PO DAILY [facility] Insulin Aspart 1 vial 05/11/18 14:00 Novolog Vial Sliding Scale - SQ Q4HWA [facility] Protocol Insulin Detemir 10 units 05/12/18 07:00 Levemir Vial SQ AM [facility] Insulin Detemir 10 units 05/11/18 22:00 Levemir Vial SQ HS [facility] Metoprolol Tartrate 200 mg 05/11/18 22:00 Lopressor - PO BID [facility] Mupirocin 1 applic 05/11/18 22:00 Bactroban Ointment (For Decolonization) - NS 05/13/18 21:59 BID [facility] Nifedipine 30 mg 05/12/18 10:00 Procardia Xl - PO DAILY [facility] Polyethylene Glycol 17 gm 05/11/18 22:00 Miralax (For Daily Use) - PO BID [facility] Potassium Chloride 40 meq 05/11/18 22:00 K-Dur - PO BID [facility] Valsartan 320 mg 05/12/18 10:00 Diovan - PO DAILY [facility] Laboratory Tests 05/08/18 08:41 Protein/Creatinin Ratio 1.7 Laboratory Tests 05/09/18 05:30 LAKESHIA Screen Positive H c-ANCA Pending Proteinase 3 (PR3) Pending p-ANCA Pending Atypical p-ANCA Pending Myeloperoxidase Ab Pending Double Strand DNA Ab 1 Glomerular Base Memb Ab 4 Impression 1. CKD 2. proteinuria 3. DM - uncontrolled 4. HTN with urgency 5. change in mental status 6. hx of non compliance 7. hyperglycemia 8. lactic acidosis 9. hypokalemia Plan - replace potassium and repeat in am - cont current meds - monitor bp - discussed compliance and diet - rheum eval fo positive [place] - follow serologies - will follow Dr Zamora
[2018-05-11] MEDS ORDERED: INSULIN SLIDING SCALE (NOVOLOG) 1 VIAL SQ SCH ×2 (14:00)
--- NOTE | 2018-05-11 14:36 | PN ---
Teaching Attending Note Name of Resident: Sher Vaca ATTENDING PHYSICIAN STATEMENT I saw and evaluated the patient. I reviewed the resident's note and discussed the case with the resident. I agree with the resident's findings and plan as documented. SUBJECTIVE: No fever or chills , no ABd pain , no CROWE. no weakness, numbness or tingling OBJECTIVE: NAD, awake and cooperative CV: RRR, 2/6 SM at RUSB and 2/6 SM at apex . Lungs: CTAB Ext: no edema ASSESSMENT AND PLAN: 57 y/o man with h/o DM, HTN, CKD who presented with l AMS and was found to have HTN emergency 1- HTN emergency. resolved. BP improved - Cont HCTZ, Diovan, BB, and procardia added this am. - check Aldosteron, and renin levels ( hypokalemia ) 2- AMS , likely due to HTN emergency . resolved , back to base line - SF cx neg , no signs of DUMP GRADER infection 3- LAKSHMI on CKD: due to HTN - CR is at base line now - ALEKSEY + , DsDNA neg, unlikely LUpus.. rheum consult ordered. ANCA Pebding 4- DM : uncontrolled. - increase levemir to 15 BID - make SSI TIDAC 5- hypokalemia: on BID Kcl, monitor level closely 6- Hep serology ordered in ER: non reactive Hep B Ag and Abs, but + total hep B core Abs . check Hep B core IgM to r/o window period . possible dc home if BP remains controlled and if sugars remain controlled
[2018-05-11 16:35] LABS: ATYPICAL pANCA <1:20 titer (Neg:<1:20); C-ANCA <1:20 titer (Neg:<1:20); P-ANCA <1:20 titer (Neg:<1:20); PROTEINASE-3 ANTIBODY <3.5 U/mL (0.0-3.5)
[2018-05-11] MEDS ORDERED: PNEUMOC 13-VAL CONJ-DIP CRM/PF 0.5 ML DISP.SYRIN IM ONE (20:49)
[2018-05-11] MEDS: POTASSIUM CHLORIDE TABS 20 MEQ TABLET.ER (FP) PO SCH (21:26)
[2018-05-11] MEDS ORDERED: PNEUMOCOCCAL 23 VACCINE 0.5 ML VIAL IM ONE (21:30)
[2018-05-11] MEDS ORDERED: DOCUSATE SODIUM 100 MG CAPSULE (FP) PO SCH ×2 (22:00)
[2018-05-11] MEDS ORDERED: INSULIN (LEVEMIR) 100 UNITS/ML UNITS SQ SCH ×3 (22:00)
[2018-05-11] MEDS ORDERED: METOPROLOL TARTRATE 50 MG TABLET (FP) PO SCH (22:00)
[2018-05-11] MEDS ORDERED: MUPIROCIN 2% TOPICAL OINTMENT FOR DECOLONIZATION NS SCH (22:00)
[2018-05-11] MEDS ORDERED: POLYETHYLENE GLYCOL 3350 119 GM BTL PO SCH (22:00)
--- NOTE | 2018-05-11 22:22 | PN ---
Physical Exam: SUBJECTIVE: No acute events overnight. Pt was weaned off of Cardene gtt and about to start Procardia ER dose. No complaints today. Denies any headaches today. OBJECTIVE: Vital Signs Period Temp Pulse Resp BP Sys/Dasilva Pulse Ox Last 24 Hr 98.2 F-99.5 F 64-78 17-141 141-169/79-107 96 GENERAL: NAD, laying in bed, alert, oriented to person, place and date HEENT: NC/AT, EOMI, STEFANY, MMM NECK: No JVD, no neck stiffness LUNGS: CTA bilaterally, no wheezes, no crackles, no accessory muscle use. HEART: RRR, S1, S2 with 2/6 systolic murmur at LLSB and 2/6 diastolic RUSB murmur ABDOMEN: Soft, nontender, nondistended, normoactive bowel sounds, no guarding, no hepatomegaly, no masses. EXTREMITIES: 2+ DP pulses, warm, well-perfused, no edema. 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 Normal speech, strength 5/5 in upper and lower extremities, sensation intact throughout. PSYCH: Normal mood, normal affect. SKIN: Warm, dry, no rashes or lesions noted Laboratory Results - last 24 hr 05/08/18 05/09/18 05/10/18 07:53 05:30 21:07 WBC RBC Hgb Hct MCV MCH MCHC RDW Plt Count MPV Absolute Neuts (auto) Neutrophils % Lymphocytes % Monocytes % Eosinophils % Basophils % Nucleated RBC % Sodium Potassium Chloride Carbon Dioxide Anion Gap BUN Creatinine Creat Clearance w eGFR POC Glucometer [phone] Random Glucose Calcium Phosphorus Magnesium Total Bilirubin AST ALT Alkaline Phosphatase Total Protein Albumin CSF Lyme Disease DNA Negative CSF Herpes II IgG Ab 0.74 ALEKSEY Screen Positive H ALEKSEY Homogeneous Pattern TNP ALEKSEY Nucleolar Pattern TNP ALEKSEY Spindle Amanda Pattern TNP ALEKSEY Midbody Pattern 1:80 ALEKSEY Centriole Pattern TNP ALEKSEY Nuclear Dot Pattern TNP ALEKSEY PCNA Pattern TNP ALEKSEY Nuclear Membr Pat TNP ALEKSEY Speckled Pattern TNP ALEKSEY Centromere Pattern TNP c-ANCA <1:20 Proteinase 3 (PR3) <3.5 p-ANCA <1:20 Atypical p-ANCA <1:20 Myeloperoxidase Ab <9.0 Glomerular Base Memb Ab 4 Hep A IgM Ab Confirm Negative Hepatitis A Ab Total Positive H Hep Bs Antigen Negative Hep Bs Antibody Non reactive Hep B Core Total Ab Positive H HCV Quantitation Hcv not detected HSV I DNA Quant (PCR) Negative HSV II DNA Quant (PCR) Negative 05/11/18 05/11/18 05/11/18 05:45 05:55 05:55 WBC 10.6 H RBC 4.92 Hgb 13.8 Hct 41.0 MCV 83.3 MCH 28.0 MCHC 33.6 RDW 14.0 Plt Count 261 MPV 9.0 Absolute Neuts (auto) 6.8 Neutrophils % 64.6 Lymphocytes % 26.5 Monocytes % 6.2 Eosinophils % 1.6 Basophils % 1.1 Nucleated RBC % 0 Sodium 139 Potassium 3.2 L Chloride 101 Carbon Dioxide 28 Anion Gap 10 BUN 18 D Creatinine 1.6 H Creat Clearance w eGFR 44.62 POC Glucometer [phone] Random Glucose 155 H D Calcium 8.7 Phosphorus 3.5 Magnesium 1.9 Total Bilirubin 1.0 AST 14 L ALT 25 Alkaline Phosphatase 57 Total Protein 7.4 Albumin 3.0 L CSF Lyme Disease DNA CSF Herpes II IgG Ab ALEKSEY Screen ALEKSEY Homogeneous Pattern ALEKSEY Nucleolar Pattern ALEKSEY Spindle Amanda Pattern ALEKSEY Midbody Pattern ALEKSEY Centriole Pattern ALEKSEY Nuclear Dot Pattern ALEKSEY PCNA Pattern ALEKSEY Nuclear Membr Pat ALEKSEY Speckled Pattern ALEKSEY Centromere Pattern c-ANCA Proteinase 3 (PR3) p-ANCA Atypical p-ANCA Myeloperoxidase Ab Glomerular Base Memb Ab Hep A IgM Ab Confirm Hepatitis A Ab Total Hep Bs Antigen Hep Bs Antibody Hep B Core Total Ab HCV Quantitation HSV I DNA Quant (PCR) HSV II DNA Quant (PCR) 05/11/18 05/11/18 05/11/18 10:18 14:09 16:26 WBC RBC Hgb Hct MCV MCH MCHC RDW Plt Count MPV Absolute Neuts (auto) Neutrophils % Lymphocytes % Monocytes % Eosinophils % Basophils % Nucleated RBC % Sodium Potassium Chloride Carbon Dioxide Anion Gap BUN Creatinine Creat Clearance w eGFR POC Glucometer [phone] 191.62782 Random Glucose Calcium Phosphorus Magnesium Total Bilirubin AST ALT Alkaline Phosphatase Total Protein Albumin CSF Lyme Disease DNA CSF Herpes II IgG Ab ALEKSEY Screen ALEKSEY Homogeneous Pattern ALEKSEY Nucleolar Pattern ALEKSEY Spindle Amanda Pattern ALEKSEY Midbody Pattern ALEKSEY Centriole Pattern ALEKSEY Nuclear Dot Pattern ALEKSEY PCNA Pattern ALEKSEY Nuclear Membr Pat ALEKSEY Speckled Pattern ALEKSEY Centromere Pattern c-ANCA Proteinase 3 (PR3) p-ANCA Atypical p-ANCA Myeloperoxidase Ab Glomerular Base Memb Ab Hep A IgM Ab Confirm Hepatitis A Ab Total Hep Bs Antigen Hep Bs Antibody Hep B Core Total Ab HCV Quantitation HSV I DNA Quant (PCR) HSV II DNA Quant (PCR) Active Medications Generic Name Dose Route Start Last Admin Trade Name Luna PRN Reason Stop Dose Admin Docusate Sodium 300 mg 05/11/18 22:00 05/11/18 21:27 Colace - PO 300 mg HS [facility] Administration Hydrochlorothiazide 25 mg 05/12/18 10:00 Hctz - PO DAILY [facility] Insulin Aspart 1 vial 05/11/18 16:30 05/11/18 16:28 Novolog Vial Sliding Scale - SQ 2 units TIDAC [facility] Administration Protocol Insulin Detemir 15 units 05/12/18 07:00 Levemir Vial SQ AM [facility] Insulin Detemir 15 units 05/11/18 22:00 05/11/18 21:27 Levemir Vial SQ 15 units HS [facility] Administration Metoprolol Tartrate 200 mg 05/11/18 22:00 05/11/18 21:26 Lopressor - PO 200 mg BID [facility] Administration Mupirocin 1 applic 05/11/18 22:00 05/11/18 21:27 Bactroban Ointment (For Decolonization) - NS 05/13/18 21:59 Not Given BID [facility] Nifedipine 30 mg 05/12/18 10:00 Procardia Xl - PO DAILY [facility] Polyethylene Glycol 17 gm 05/11/18 22:00 05/11/18 21:35 Miralax (For Daily Use) - PO Not Given BID [facility] Potassium Chloride 40 meq 05/11/18 22:00 05/11/18 21:26 K-Dur - PO 40 meq BID [facility] Administration Valsartan 320 mg 05/12/18 10:00 Diovan - PO DAILY [facility] ASSESSMENT/PLAN: 1) Hypertensive Emergency resulting in encephalopathy --AMS most likely due to this factor alone --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 Unchanged from previous with diastolic LV dysfunction and concentric LV hypertrophy 2) Poorly controlled DM --Continue ISS --BGM ACHS -- Remains poorly controlled; add Levemir 5U to morning dose; continue Levemir 15U AM and HS --A1C 13% noted this admission --Pt educated about hypoglycemia and need for compliance of taking insulin --Recommend using Flexpens on an outpatient basis due to better compliance and easy to use 3) Elevated troponin --Likely combination of demand from HTN event and diminished clearing effect from kidney dysfunction early on 4) LAKSHMI vs. LAKSHMI on CKD? --Unknown baseline --Likely underperfusion due to HTN and intrinsic damage from uncontrolled DM --Resolving with fluids and controlled BP --Nephrology on board FEN: Fluids: None indicated currently Electrolyte abnormalities: Hypokalemia (Kdur) Nutrition: Low sodium diet PPX: DVT - SCDs while HTN emergency resolving Dispo: Can transfer to /S Case discussed with Dr. Elsa Vaca, DO - IM PGY-1 Visit type - Emergency Visit Emergency Visit: No - New Patient This patient is new to me today: No - Critical Care Critical Care patient: No
[2018-05-12] MEDS ORDERED: INSULIN (LEVEMIR) 100 UNITS/ML UNITS SQ SCH ×3 (07:00)
[2018-05-12 08:56] LABS: ANION GAP 10 (8-16); BLOOD UREA NITROGEN 24 mg/dL (7-18); CHLORIDE 101 mmol/L (98-107); CO2 27 mmol/L (21-32); CREATININE 1.6 mg/dL (0.7-1.3); GLUCOSE,RANDOM 181 mg/dL (74-106); POTASSIUM 3.5 mmol/L (3.5-5.1); SODIUM 138 mmol/L (136-145)
[2018-05-12 09:03] LABS: EOS % 3.8 % (0-4.5); HEMATOCRIT 40.6 % (35.4-49); HEMOGLOBIN 13.6 GM/dL (11.7-16.9); LYMPH % 30.9 % (8-40); MCH 28.1 pg (25.7-33.7); MCHC 33.5 g/dl (32.0-35.9); MEAN CELL VOLUME 83.9 fl (80-96); MEAN PLT VOLUME 9.5 fl (7.5-11.1); MONO % 6.6 % (3.8-10.2); NEUT % 57.7 % (42.8-82.8); PLATELET COUNT 255 K/MM3 (134-434); RBC 4.84 M/mm3 (4.00-5.60); RDW 13.8 % (11.9-15.9); WHITE BLOOD COUNT 7.2 K/mm3 (4.0-10.0)
--- NOTE | 2018-05-12 09:41 | PN ---
Teaching Attending Note Name of Resident: Sher Vaca ATTENDING PHYSICIAN STATEMENT I saw and evaluated the patient. I reviewed the resident's note and discussed the case with the resident. I agree with the resident's findings and plan as documented. SUBJECTIVE: no pain, no fever or chills, no diarrhea , no CROWE or vision changes , no weakness OBJECTIVE: NAD CV: RRR, 2/6 SM at RUSB and 2/6 SM at apex . Lungs: CTAB Ext: no edema ASSESSMENT AND PLAN: 57 y/o man with h/o DM, HTN, CKD who presented with l AMS and was found to have HTN emergency 1- HTN emergency. resolved. BP is better controlled on currnet regimen - Cont HCTZ, Diovan, BB, and procardia. - Aldosteron, and renin levels . this will be pending at time of dc , but he will have to follow with renal. He understands 2- AMS , likely due to HTN emergency . resolved , back to base line - SF cx neg , no signs of PACKAGE CHECKER infection 3- LAKSHMI on CKD: due to HTN - CR is at base line now - ALEKSEY + , DsDNA neg, unlikely LUpus.. rheum consult ordered, but can follow as out pt . ANCA Pebding 4- DM : uncontrolled. - cont levemir 15 BID - SSI TIDAC 5- hypokalemia: on BID Kcl, will continue to monitor levels as outpt . ? primary hyperaldostronism 6- Hep serology ordered in ER: non reactive Hep B Ag and Abs, await HepB core IgM Abs DC home today educated about importance of compliance with meds
--- NOTE | 2018-05-12 09:58 | PN ---
Progress Note (short form) - Note Progress Note: Overall better. No CP or SOB. No acute events overnight. Intake & Output 05/09/18 05/10/18 05/11/18 05/12/18 23:59 23:59 23:59 23:59 Intake Total 8769 350 3080 Output Total 2700 1900 500 Balance -1475 -1180 660 Weight 199 lb 199 lb 9.6 oz Last Vital Signs Temp Pulse Resp BP Pulse Ox 98.7 F 66 20 132/96 96 05/12/18 00:52 05/12/18 00:52 05/12/18 00:52 05/12/18 00:52 05/11/18 21:00 Active Medications Docusate Sodium (Colace -) 300 mg PO HS [facility] Last Admin: 05/11/18 21:27 Dose: 300 mg Hydrochlorothiazide (Hctz -) 25 mg PO DAILY [facility] Insulin Aspart (Novolog Vial Sliding Scale -) 1 vial SQ TIDAC [facility]; Protocol Last Admin: 05/11/18 16:28 Dose: 2 units Insulin Detemir (Levemir Vial) 15 units SQ AM [facility] Insulin Detemir (Levemir Vial) 15 units SQ HS [facility] Last Admin: 05/11/18 21:27 Dose: 15 units Metoprolol Tartrate (Lopressor -) 200 mg PO BID [facility] Last Admin: 05/11/18 21:26 Dose: 200 mg Mupirocin (Bactroban Ointment (For Decolonization) -) 1 applic NS BID [facility] Stop: 05/13/18 21:59 Last Admin: 05/11/18 21:27 Dose: Not Given Nifedipine (Procardia Xl -) 30 mg PO DAILY [facility] Polyethylene Glycol (Miralax (For Daily Use) -) 17 gm PO BID [facility] Last Admin: 05/11/18 21:35 Dose: Not Given Potassium Chloride (K-Dur -) 40 meq PO BID [facility] Last Admin: 05/11/18 21:26 Dose: 40 meq Valsartan (Diovan -) 320 mg PO DAILY [facility] Gen: NAD at rest Heart: RRR Lung: Clear Abd: soft, nontender Ext: no edema ASSESSMENT AND PLAN: Altered Mental Status improved due to Hypertensive Urgency/Encephalopathy HTN DM CKD Lactic Acidosis resolved - PO BP meds as ordered - D/C planning Dr Morley Problem List - Problems (1) Encephalopathy Code(s): G93.40 - ENCEPHALOPATHY, UNSPECIFIED (2) Altered mental status Code(s): R41.82 - ALTERED MENTAL STATUS, UNSPECIFIED Qualifiers: Altered mental status type: unspecified Qualified Code(s): R41.82 - Altered mental status, unspecified (3) Hypertensive emergency Code(s): I16.1 - HYPERTENSIVE EMERGENCY (4) Renal insufficiency, mild Code(s): N28.9 - DISORDER OF KIDNEY AND URETER, UNSPECIFIED (5) Hyperglycemia Code(s): R73.9 - HYPERGLYCEMIA, UNSPECIFIED
[2018-05-12] MEDS ORDERED: HYDROCHLOROTHIAZIDE 25 MG TABLET (FP) PO SCH ×2 (10:00)
[2018-05-12] MEDS ORDERED: VALSARTAN 160 MG TABLET (UD) PO SCH ×2 (10:00)
[2018-05-12] MEDS ORDERED: NIFEdipine E.R. 30 MG TABLET (FP) PO SCH ×2 (10:00)
[2018-05-12] MEDS: POTASSIUM CHLORIDE TABS 20 MEQ TABLET.ER (FP) PO SCH (10:26)
[2018-05-12] MEDS: METOPROLOL TARTRATE 50 MG TABLET (FP) PO SCH (10:28)
[2018-05-12] MEDS: POLYETHYLENE GLYCOL 3350 119 GM BTL PO SCH (10:43)
[2018-05-12] MEDS: MUPIROCIN 2% TOPICAL OINTMENT FOR DECOLONIZATION NS SCH (10:45)
[2018-05-12] MEDS: INSULIN SLIDING SCALE (NOVOLOG) 1 VIAL SQ SCH (11:53)
--- NOTE | 2018-05-12 11:57 | PN ---
Progress Note, Physician History of Present Illness: BP control improved, sensorium at baseline, denies chest pain or dyspnea. - Current Medication List Current Medications: Active Medications Docusate Sodium (Colace -) 300 mg PO HS [facility] Last Admin: 05/11/18 21:27 Dose: 300 mg Hydrochlorothiazide (Hctz -) 25 mg PO DAILY [facility] Last Admin: 05/12/18 10:29 Dose: 25 mg Insulin Aspart (Novolog Vial Sliding Scale -) 1 vial SQ TIDAC [facility]; Protocol Last Admin: 05/11/18 16:28 Dose: 2 units Insulin Detemir (Levemir Vial) 15 units SQ AM [facility] Last Admin: 05/12/18 10:42 Dose: 15 units Insulin Detemir (Levemir Vial) 15 units SQ HS [facility] Last Admin: 05/11/18 21:27 Dose: 15 units Metoprolol Tartrate (Lopressor -) 200 mg PO BID [facility] Last Admin: 05/12/18 10:28 Dose: 200 mg Mupirocin (Bactroban Ointment (For Decolonization) -) 1 applic NS BID [facility] Stop: 05/13/18 21:59 Last Admin: 05/12/18 10:45 Dose: Not Given Nifedipine (Procardia Xl -) 30 mg PO DAILY [facility] Last Admin: 05/12/18 10:28 Dose: 30 mg Polyethylene Glycol (Miralax (For Daily Use) -) 17 gm PO BID [facility] Last Admin: 05/12/18 10:43 Dose: 17 grams Potassium Chloride (K-Dur -) 40 meq PO BID [facility] Last Admin: 05/12/18 10:26 Dose: 40 meq Valsartan (Diovan -) 320 mg PO DAILY [facility] Last Admin: 05/12/18 10:27 Dose: 320 mg - Objective Vital Signs: Vital Signs Temperature 98.6 F 05/12/18 10:00 Pulse Rate 67 05/12/18 10:00 Respiratory Rate 20 05/12/18 10:00 Blood Pressure 149/84 05/12/18 10:00 O2 Sat by Pulse Oximetry (%) 96 05/11/18 21:00 Constitutional: Yes: No Distress, Calm Neck: Yes: Supple Cardiovascular: Yes: Regular Rate and Rhythm Respiratory: Yes: Regular, CTA Bilaterally Gastrointestinal: Yes: Normal Bowel Sounds, Soft Edema: No Labs: CBC, BMP 05/12/18 07:24 06/14/18 06:00 INR, PTT INR 0.97 (0.82-1.09) 05/08/18 05:30 Problem List - Problems (1) [id number] kidney injury Code(s): N17.9 - ACUTE KIDNEY FAILURE, UNSPECIFIED; N18.9 - CHRONIC KIDNEY DISEASE, UNSPECIFIED (2) Altered mental status Code(s): R41.82 - ALTERED MENTAL STATUS, UNSPECIFIED Qualifiers: Altered mental status type: unspecified Qualified Code(s): R41.82 - Altered mental status, unspecified (3) Encephalopathy Code(s): G93.40 - ENCEPHALOPATHY, UNSPECIFIED (4) Hypertensive emergency Code(s): I16.1 - HYPERTENSIVE EMERGENCY (5) Noncompliance w/medication treatment due to intermit use of medication Code(s): Z91.14 - PATIENT'S OTHER NONCOMPLIANCE WITH MEDICATION REGIMEN Assessment/Plan May 09, 2018 Echo: Mod cLVH, normal LV size and fxn, mild TR, tr AR, MR 1. Altered Mental Status referable to hypertensive encephelopathy resolved 2. HTN urgency 3. Poorly controlled DM 4. Acute on CKD with proteinuria improving 5. Lactic Acidosis P:1. Continue Lopressor, Diovan-HCT, Procardial XL with uptitration as hemodynamics tolerate 2. Emphasized importance of diet and medication compliance, avoid NSAIDs 3. F/u CSF lyme studies 4. D/c home today
[2018-05-12 13:32] VITALS: BP 127/82; PULSE 70; TEMP 98.3
--- NOTE | 2018-05-12 14:03 | DS ---
Physical Exam: SUBJECTIVE: Patient seen and examined OBJECTIVE: Vital Signs Period Temp Pulse Resp BP Sys/Dasilva Pulse Ox Last 24 Hr 98.2 F-99.3 F 66-78 18-20 127-169/79-107 96-99 PHYSICAL EXAM GENERAL: The patient is awake, alert, and fully oriented, in no acute distress. HEAD: Normal with no signs of trauma. EYES: PERRL, extraocular movements intact, sclera anicteric, conjunctiva clear. ENT: Ears normal, nares patent, oropharynx clear without exudates, moist mucous membranes. NECK: Trachea midline, full range of motion, supple. LUNGS: Breath sounds equal, clear to auscultation bilaterally, no wheezes, no crackles, no accessory muscle use. HEART: Regular rate and rhythm, S1, S2 without murmur, rub or gallop. ABDOMEN: Soft, nontender, nondistended, normoactive bowel sounds, no guarding, no rebound, no hepatosplenomegaly, no masses. EXTREMITIES: 2+ pulses, warm, well-perfused, no edema. NEUROLOGICAL: Cranial nerves II through XII grossly intact. Normal speech, gait not observed. PSYCH: Normal mood, normal affect. SKIN: Warm, dry, normal turgor, no rashes or lesions noted. LABS Laboratory Results - last 24 hr 05/08/18 05/09/18 05/11/18 07:53 05:30 14:09 WBC RBC Hgb Hct MCV MCH MCHC RDW Plt Count MPV Absolute Neuts (auto) Neutrophils % Lymphocytes % Monocytes % Eosinophils % Basophils % Nucleated RBC % Sodium Potassium Chloride Carbon Dioxide Anion Gap BUN Creatinine POC Glucometer [phone] Random Glucose Calcium CSF Herpes II IgG Ab 0.74 c-ANCA <1:20 Proteinase 3 (PR3) <3.5 p-ANCA <1:20 Atypical p-ANCA <1:20 Myeloperoxidase Ab <9.0 HCV Quantitation Hcv not detected 05/11/18 05/11/18 05/12/18 16:26 21:26 05:33 WBC RBC Hgb Hct MCV MCH MCHC RDW Plt Count MPV Absolute Neuts (auto) Neutrophils % Lymphocytes % Monocytes % Eosinophils % Basophils % Nucleated RBC % Sodium Potassium Chloride Carbon Dioxide Anion Gap BUN Creatinine POC Glucometer 191.95889 212 186 Random Glucose Calcium CSF Herpes II IgG Ab c-ANCA Proteinase 3 (PR3) p-ANCA Atypical p-ANCA Myeloperoxidase Ab HCV Quantitation 05/12/18 05/12/18 05/12/18 06:00 07:24 11:47 WBC 7.2 D RBC 4.84 Hgb 13.6 Hct 40.6 MCV 83.9 MCH 28.1 MCHC 33.5 RDW 13.8 Plt Count 255 MPV 9.5 Absolute Neuts (auto) 4.1 Neutrophils % 57.7 Lymphocytes % 30.9 Monocytes % 6.6 Eosinophils % 3.8 D Basophils % 1.0 Nucleated RBC % 0 Sodium 138 Potassium 3.5 Chloride 101 Carbon Dioxide 27 Anion Gap 10 BUN 24 H D Creatinine 1.6 H POC Glucometer 312 Random Glucose 181 H Calcium 9.0 CSF Herpes II IgG Ab c-ANCA Proteinase 3 (PR3) p-ANCA Atypical p-ANCA Myeloperoxidase Ab HCV Quantitation HOSPITAL COURSE: Date of Admission:05/08/18 Date of Discharge: 05/12/18 Discharge Summary Reason For Visit: ALTERED MENTAL STATUS Current Active Problems Zuehy-wg-qafrrud kidney injury (Acute) Altered mental status (Acute) Encephalopathy (Acute) Hyperglycemia (Acute) Noncompliance w/medication treatment due to intermit use of medication (Acute) CKD (chronic kidney disease) (Chronic) Condition: Improved - Instructions Diet, Activity, Other Instructions: You were seen here due to your altered mental status which was caused by your extremely elevated blood pressure. ALSO, you were found to have extremely high blood sugars and we started you on long and short-acting insulin. MEDICATIONS: You will be prescribed Levemir 15U in the MORNING AND NIGHT You will also be prescribed a short acting Novolog Flexpen. You will need to take your sugar prior to every meal and inject the Novolog Flexpen with the dose from this chart below: ( if you skip a meal, do not inject the Novolog ) Blood Sugar Units from the Flexpen Injected 101-150 Do Not Inject 151-200 2 Units injected 201-250 4 Units injected 251-300 6 Units injected 301-350 8 Units injected 351-400 10 Units injected >400 12 Units injected AND go to the ER for further evaluation You will also be given a new glucometer, pen needles, and test strips as well. PLEASE STOP TAKING THE GLYPIZIDE MEDICATION Blood pressure medications: You will also be given Procardia XL 30mg to be given DAILY PLEASE STOP TAKING YOUR NORVASC as this new medication is working well without it Please continue your Lopressor 200mg TWICE DAILY, your Diovan (aka Valsartan) 320mg DAILY, and HCTZ 25mg DAILY FOLLOW-UPs: You will need to follow-up with Dr. Beth and Dr. Vaca in the [place] [place] office. If you regularly see another primary doctor this is okay too, however you need to visit whomever within the next week. You should also keep a log of your blood sugars and blood pressures throughout the day so you can show your doctor. - please follow with Dr. Zamora , for your kidneys . Blood test ( Aldostrerone and renin ) are still pending to determine other causes of hyper tension . Referrals: Adolfo Beth MD [Staff Physician] - 1 Week Alberta Zamora MD [Staff Physician] - Disposition: HOME - Home Medications Comprehensive Discharge Medication List: Ambulatory Orders Valsartan [Diovan] 320 mg PO DAILY 08/19/12 Metoprolol Tartrate [Lopressor -] 200 mg PO BID 12/11/15 Cyclobenzaprine HCl [Flexeril -] 5 mg PO BID 12/19/17 Hydrochlorothiazide [Hctz -] 25 mg PO DAILY 12/19/17 Blood Pressure Test Kit-Wrist [Blood Pressure Kit] 1 each MC DAILY #1 kit Insulin Aspart [Novolog Flexpen] See Protocol SQ ACHS #1 insuln.pen 05/12/18 Insulin Detemir [Levemir Flextouch] 15 unit SQ BID #1 insuln.pen 05/12/18 Miscellaneous Medical Supply [Glucometer Device] 1 each LUIS ASDIR #1 kit [facility] [Glucometer Test Strips #100] 1 each LUIS ASDIR #1 box 05/12/18 Nifedipine ER [Procardia XL -] 30 mg PO DAILY #30 tab.er.24 05/12/18 Pen Needle, Diabetic [Pen Needle] 1 each ACHS #100 dis.needle 05/12/18
--- NOTE | 2018-05-12 14:13 | PN ---
Progress Note, Physician History of Present Illness: Pt seen and examined at bedside. He is awake and alert. He denies shortness of breath. - Current Medication List Current Medications: Active Medications Docusate Sodium (Colace -) 300 mg PO HS [facility] Last Admin: 05/11/18 21:27 Dose: 300 mg Hydrochlorothiazide (Hctz -) 25 mg PO DAILY [facility] Last Admin: 05/12/18 10:29 Dose: 25 mg Insulin Aspart (Novolog Vial Sliding Scale -) 1 vial SQ TIDAC [facility]; Protocol Last Admin: 05/12/18 11:53 Dose: 8 units Insulin Detemir (Levemir Vial) 15 units SQ AM [facility] Last Admin: 05/12/18 10:42 Dose: 15 units Insulin Detemir (Levemir Vial) 15 units SQ HS [facility] Last Admin: 05/11/18 21:27 Dose: 15 units Metoprolol Tartrate (Lopressor -) 200 mg PO BID [facility] Last Admin: 05/12/18 10:28 Dose: 200 mg Mupirocin (Bactroban Ointment (For Decolonization) -) 1 applic NS BID [facility] Stop: 05/13/18 21:59 Last Admin: 05/12/18 10:45 Dose: Not Given Nifedipine (Procardia Xl -) 30 mg PO DAILY [facility] Last Admin: 05/12/18 10:28 Dose: 30 mg Polyethylene Glycol (Miralax (For Daily Use) -) 17 gm PO BID [facility] Last Admin: 05/12/18 10:43 Dose: 17 grams Potassium Chloride (K-Dur -) 40 meq PO BID [facility] Last Admin: 05/12/18 10:26 Dose: 40 meq Valsartan (Diovan -) 320 mg PO DAILY [facility] Last Admin: 05/12/18 10:27 Dose: 320 mg - Objective Vital Signs: Vital Signs Temperature 98.3 F 05/12/18 13:29 Pulse Rate 70 05/12/18 13:29 Respiratory Rate 20 05/12/18 13:29 Blood Pressure 127/82 05/12/18 13:29 O2 Sat by Pulse Oximetry (%) 99 05/12/18 09:00 Constitutional: Yes: Calm Eyes: Yes: Conjunctiva Clear HENT: Yes: Atraumatic Neck: Yes: Supple Cardiovascular: Yes: S1, S2 Respiratory: Yes: CTA Bilaterally Gastrointestinal: Yes: Soft Genitourinary: Yes: WNL Musculoskeletal: Yes: WNL Edema: No Neurological: Yes: Oriented Psychiatric: Yes: Oriented Labs: CBC, BMP 05/12/18 07:24 05/12/18 06:00 INR, PTT INR 0.97 (0.82-1.09) 05/08/18 05:30 Problem List - Problems (1) CKD (chronic kidney disease) Code(s): N18.9 - CHRONIC KIDNEY DISEASE, UNSPECIFIED (2) Altered mental status Code(s): R41.82 - ALTERED MENTAL STATUS, UNSPECIFIED Qualifiers: Altered mental status type: unspecified Qualified Code(s): R41.82 - Altered mental status, unspecified (3) Encephalopathy Code(s): G93.40 - ENCEPHALOPATHY, UNSPECIFIED (4) Hyperglycemia Code(s): R73.9 - HYPERGLYCEMIA, UNSPECIFIED (5) Hypertension Code(s): I10 - ESSENTIAL (PRIMARY) HYPERTENSION Qualifiers: Hypertension type: unspecified Qualified Code(s): I10 - Essential (primary ) hypertension (6) Hypertensive emergency Code(s): I16.1 - HYPERTENSIVE EMERGENCY Assessment/Plan Current Medications Generic Name Dose Route Start Last Admin Trade Name Freq PRN Reason Stop Dose Admin Docusate Sodium 300 mg 05/11/18 22:00 05/11/18 21:27 Colace - PO 300 mg HS [facility] Administration Hydrochlorothiazide 25 mg 05/12/18 10:00 05/12/18 10:29 Hctz - PO 25 mg DAILY [facility] Administration Insulin Aspart 1 vial 05/11/18 16:30 05/12/18 11:53 Novolog Vial Sliding Scale - SQ 8 units TIDAC [facility] Administration Protocol Insulin Detemir 15 units 05/12/18 07:00 05/12/18 10:42 Levemir Vial SQ 15 units AM [facility] Administration Insulin Detemir 15 units 05/11/18 22:00 05/11/18 21:27 Levemir Vial SQ 15 units HS [facility] Administration Metoprolol Tartrate 200 mg 05/11/18 22:00 05/12/18 10:28 Lopressor - PO 200 mg BID [facility] Administration Mupirocin 1 applic 05/11/18 22:00 05/12/18 10:45 Bactroban Ointment (For Decolonization) - NS 06/15/18 21:59 Not Given BID [facility] Nifedipine 30 mg 05/12/18 10:00 05/12/18 10:28 Procardia Xl - PO 30 mg DAILY [facility] Administration Polyethylene Glycol 17 gm 05/11/18 22:00 05/12/18 10:43 Miralax (For Daily Use) - PO 17 grams BID [facility] Administration Potassium Chloride 40 meq 05/11/18 22:00 05/12/18 10:26 K-Dur - PO 40 meq BID [facility] Administration Valsartan 320 mg 05/12/18 10:00 05/12/18 10:27 Diovan - PO 320 mg DAILY [facility] Administration Laboratory Tests 05/09/18 05/11/18 05:30 05:42 LAKESH[facility] Screen Positive H LAKESHIA Midbody Pattern 1:80 c-ANCA <1:20 Proteinase 3 (PR3) <3.5 Hep Bs Antigen Negative Hep Bs Antibody Non reactive Hep B Core Total Ab Positive H Hep B Core IgM Ab Pending Selected Entries 05/12/18 05/12/18 05/12/18 00:52 10:00 13:29 Blood Pressure 132/96 149/84 127/82 Impression 1. CKD 2. proteinuria 3. DM - uncontrolled 4. HTN with urgency 5. change in mental status 6. hx of non compliance 7. hyperglycemia 8. lactic acidosis 9. hypokalemia Plan - bp is improved - renal function is stabilizing - rhem eval for [place] - discussed compliance and diet - follow serologies - will follow Dr Zamora
[2018-05-12] MEDS ORDERED: PNEUMOCOCCAL 23 VACCINE 0.5 ML VIAL IM ONE (15:00)
[2018-05-13 00:08] LABS: MUMPS AB IGG CSF < 5.0 AU/mL (<=10.9)
== END 2018-05-12 16:25 | disposition home or self-care (01) | DRG 52 ==
LOC: JER 05:08 → JERBED 09:24 → JICU 09:59 → J7W 05-11 20:58
PROVIDERS: ADMIT Internal Medicine; ATTEND Internal Medicine
PROC: 009U3ZX Drainage of Spinal Canal, Percutaneous Approach, Diagnostic (ICD-10-PCS; principal; 2018-05-08)
DX: I67.4 Hypertensive encephalopathy (principal); N17.9 Acute kidney failure, unspecified; E11.22 Type 2 diabetes mellitus with diabetic chronic kidney disease; E87.2 Acidosis; E11.65 Type 2 diabetes mellitus with hyperglycemia; I16.1 Hypertensive emergency; Z79.4 Long term (current) use of insulin; Z91.14 Patient's other noncompliance with medication regimen; E87.6 Hypokalemia; I12.9 Hypertensive chronic kidney disease with stage 1 through stage 4 chronic kidney disease, or unspecified chronic kidney disease; N18.9 Chronic kidney disease, unspecified; I44.0 Atrioventricular block, first degree; R51 Headache
CPT/HCPCS: 36415; 36600; 70450-TC; 70551-TC; 71045-TC-FY; 76775-TC; 80048; 80053; 80307; 81003; 81015; 82009; 82088; 82140; 82375; 82436; 82550; 82553; 82570; 82803; 82945; 82962; 83036; 83050; 83516; 83520; 83605; 83735; 83880; 84100; 84133; 84155; 84156; 84157; 84165; 84244; 84300; 84484; 85025; 85610; 85730; 86038; 86225; 86256; 86592; 86617; 86694; 86704; 86705; 86706; 86708; 86735; 86765; 86787; 86788; 86789; 87040; 87070; 87086; 87205; 87340; 87476; 87522; 87529; 87802; 87899; 93005; 93010; 93306-TC; 97116-GP; 97161-GP; 99284-25; J0131; J1100

== ENCOUNTER 2019-08-05 01:52 | Inpatient (IN) | payer OTHER | END 2019-08-06 18:06 | disposition home or self-care (01) | LOC: JER 01:52 → JERBED 04:07 → J4S 22:39 ==

== ENCOUNTER 2022-12-31 16:56 | Emergency (ER) | payer OTHER ==
[2022-12-31 17:24] VITALS: BP 157/85; PULSE 69; RESP 18; TEMP 98; BMI 31.3
[2022-12-31] MEDS ORDERED: LIDOCAINE 5% TOPICAL PATCH TP ONE (19:18)
[2022-12-31] MEDS ORDERED: KETOROLAC TROMETHAMINE 30 MG/1 ML VIAL IM ONE (19:18)
[2022-12-31] MEDS ORDERED: CYCLOBENZAPRINE HCL 10 MG TABLET (FP) PO ONE (19:22)
[2022-12-31] MEDS ORDERED: LIDOCAINE 5% TOPICAL PATCH ONE (19:26)
[2022-12-31] MEDS ORDERED: CYCLOBENZAPRINE HCL 10 MG TABLET (FP) ONE (19:26)
[2022-12-31] MEDS ORDERED: LIDOCAINE PATCH REMOVAL MC SCH (22:00)
== END 2022-12-31 19:49 | disposition home or self-care (01) ==
LOC: JERFT 16:56
DX: M54.2 Cervicalgia (principal); M25.511 Pain in right shoulder; M25.512 Pain in left shoulder; V49.40XA Driver injured in collision with unspecified motor vehicles in traffic accident, initial encounter
CPT/HCPCS: 99283-25